=== PATIENT | male | born 1950 | race Caucasian/White ===

== ENCOUNTER → 2016-12-31 | Day surgery (SDC) | payer OTHER, MEDICARE ==
[~2016-12-31] VITALS: Ht 170.2 cm; Wt 75.0 kg
[~2016-12-31] MED LIST: ACETAMINOPHEN 325 MG TAB PO PRN; AGG PO; ASCO10003 PO; ATOR-26 PO; ATROPINE SULFATE 0.1 MG/ML 5ML SYR IV PRN; Beta Carotene PO; CALCTAB5 PO; CLOB1SHA EXT; CLOP1TAB15 PO; CYAN100T6 PO; EZET10TA47 PO; FENTANYL CITRATE INJ 50 MCG/1 ML 2 ML VIAL ONE; FINA5TAB PO; HEPARIN SOD (PORCINE) 1000 UNIT/ML 10 ML VIAL ONE; LCTX PO; LISI-729 PO; LISI-789 PO; MIDAZOLAM HCL 1 MG/ML 2ML VIAL ONE; MISCCAP63 PO; MULT-839 PO; NITROGLYCERIN/D5W 100MCG/ML 20ML SYR ONE; NiCARDipine HCL INJ 2.5 MG/ML 10 ML AMP ONE; Potassium PO; ROSU20TA PO; SODIUM CHLORIDE 0.9% 1000ML 1,000 ML IV SCH; SODIUM CHLORIDE 0.9% 1000ML 250 ML IV PRN; TAMS0.4C38 PO; VITA1CAP4 PO; [UNRECOGNIZED DRUG - CODE] PO; [UNRECOGNIZED DRUG - OTHER] PO
[2016-12-31 07:21] VITALS: BP 162/74; PULSE 58; TEMP 36.7; O2SAT 99; Ht 170.2 cm; Wt 75.0 kg
--- NOTE | 2016-12-31 09:45 | History & Physical Bridge Note ---
H&P Re-Evaluation Bridge Note: I have examined the patient, reviewed the History & Physical and in the interval since the performance of the History & Physical I have noted the following changes of clinical significance: No changes noted
--- NOTE | 2016-12-31 10:01 | [facility] Post Operative Brief Note ---
Preliminary Procedure Note Procedure Date Dec 31, 2016. Pre-Procedure Diagnosis Angina, Positive Stress Test AUC Score 8 Post-Procedure Diagnosis Severe CAD Procedure(s) Performed Coronary Angiography Elastic Assembler Dr. Dinesh Bacon Teacher Resource(s) <15 cc Estimated Blood Loss Medication(s) Fentanyl (12.5 mcg IV), Heparin (5000u IV), Nicardipine (300 mcg intraarterial after sheath insertion), Versed (1 mg IV), Lidocaine 1% (local infiltration) Preliminary Findings Diffuse coronary calcification Right dominant coronary anatomy LM 80% ostial, 50% distal LAD 60% mid vessel LADD1 long 70% LCX Very large OM , serial 50% stenoses proximal RCA Dominant 50% at AV groove bifurcation MEJIAS intact insitu Recommendations CABG Specimens None Fluids (cc crystalloids) 47 Anesthesia [id number] End 929 Procedural Complication(s) None Disposition Pediatric Critical Care Nurse Holding/Recovery
--- NOTE | 2016-12-31 10:22 | Procedure Note ---
Pre-Mod Sedation Assessment General Date of Moderate Sedation: Dec 31, 2016. Vital Signs: Vital Signs Past 12 Hours Date Time Temp Pulse Resp B/P (MAP) Pulse Ox O2 Delivery O2 Flow Rate FiO2 12/31/16 09:38 51 18 146/78 (100) 98 Room Air 12/31/16 07:21 36.7 58 18 162/74 99 Room Air Review Cardiovascular: regular rate, rhythm, no gallop, no murmur Abdomen: normal bowel sounds Lungs: chest non-tender, lungs clear Airway Class: II Pre-Sedation Airway Assessment Oral Cavity: Dentures Short Thick Neck: No Hx of Sleep Apnea: No Smoking Status: Never Smoker Procedure Planning Contraindications-for Mod Sed: None Yes Notes The planned sedation has been discussed with the patient and consent obtained. I have identified the patient, determined the appropriateness of sedation and have assessed the patient immediately prior to the procedure. All medicine(s) and interventions are by my order.
[2016-12-31 12:00] VITALS: BP 134/79; PULSE 52; O2SAT 96
--- NOTE | 2016-12-31 12:11 | CARDIAC CATH REPORT ---
REFERRING: Dr. Sandhu. PRIMARY CARE DOCTOR: Dr. Barber. INDICATIONS: Abnormal stress test, crescendo angina. PROCEDURE: Coronary angiography. BRIEF CARDIAC HISTORY: The patient is a 66-year-old male with recent symptoms of exertional chest pressure pain with abnormal EKG and on 12/30/2016, abnormal stress echocardiogram, referred now for diagnostic cardiac catheterization. He has had no prior history of myocardial infarction. Symptoms are consistent with crescendo class 3 or greater angina with abnormal stress testing by EKG and echocardiographic criteria. He has never had a history of congestive heart failure, does carry a history of underlying prior carotid vascular disease, marked hyperlipidemia. ACCESS: Right radial artery. CATHETERS: A 6-[place]or[place] long sheath, a 5-[place] brachial 3.5. CONTRAST: Nonionic x60 mL Visipaque. IV FLUIDS: 47 mL normal saline. MEDICATIONS: The patient received local infiltration with 1% lidocaine at site of access. After arterial sheath was inserted, 300 mcg of intra-arterial sheath administration of nicardipine was given and after central access was gained, 5000 units IV heparin was given. SEDATION: Start time was 09:09 and end time was 09:30. MEDICATIONS: Versed 1 mg IV, fentanyl 12.5 mcg IV. CORONARY ANGIOGRAPHY: LEFT: All coronaries are noted to be heavily calcified in their proximal portions, coronary anatomy is right dominant. LEFT MAIN: The left main is long and bifurcates to give rise to left anterior descending and left circumflex. Within the left main, there is a 75-80% narrowing at its ostium. There is an additional 50% narrowing at its distal portion extending into the origins of the circumflex and left anterior descending with heavy calcification in this area. LEFT ANTERIOR DESCENDING: Left anterior descending is type 3 in distribution and gives rise to a moderately large first diagonal branch and a small second diagonal branch before coursing to terminate the apex. Within the left anterior descending, there are diffuse luminal irregularities throughout its vessel and has 50% narrowing in its proximal portion and 60% narrowing in its mid portion. The first left anterior descending diagonal has a long area of 70% narrowing shortly after its origin. LEFT CIRCUMFLEX: Left circumflex is nondominant but large consisting of a very large multi-branching obtuse marginal. The circumflex has serial stenosis of 50% in its proximal third, the distal was of moderately large caliber. RIGHT CORONARY ARTERY: The right coronary artery is dominant in distribution. It courses as a moderately large caliber vessel to the AV groove for gives rise to a long posterior descending artery with the posterior descending artery reaching beyond the apex and along the AV groove, giving rise to 3 posterior ventricular branches. Within the right coronary artery, there is 50% narrowing at its proximal segment and 50% narrowing at its AV groove bifurcation extending into the origin of the posterior descending artery. LV angiography not performed. Selective angiography of the left subclavian demonstrated a patent left internal mammary artery in situ without obstruction of the left internal mammary artery. HEMODYNAMICS: Initial aortic root pressure was 159/70 with a mean of 105. Following completion of imaging, the closing pressure was 148/65 with a mean of 98. RADIATION EXPOSURE: Three minutes fluoroscopy time, 1570 milligrays DAP score 9661. FINAL IMPRESSIONS: 1. Left main coronary artery disease with heavy calcification of the coronary vasculature and 75-80% narrowing of the ostial left main. 2. Diffuse coronary luminal irregularities and moderate atheromatous disease as described with a 70% narrowing at the left anterior descending artery diagonal, 50% narrowing of the proximal circumflex and left anterior descending and 50% narrowing of the distal right coronary artery. 3. Patent left internal mammary artery in situ. RECOMMENDATIONS: The patient will be referred for surgical revascularization.
== END | disposition home or self-care (01) ==
LOC: C.CATH 06:30
PROVIDERS: ATTEND Internal Medicine Cardiovascular Disease
DX: R94.39 Abnormal result of other cardiovascular function study (principal); I25.110 Atherosclerotic heart disease of native coronary artery with unstable angina pectoris; I10 Essential (primary) hypertension; E78.5 Hyperlipidemia, unspecified; I45.10 Unspecified right bundle-branch block; Z98.890 Other specified postprocedural states; Z82.49 Family history of ischemic heart disease and other diseases of the circulatory system; N40.1 Benign prostatic hyperplasia with lower urinary tract symptoms; Z79.02 Long term (current) use of antithrombotics/antiplatelets; Z79.899 Other long term (current) drug therapy

== ENCOUNTER → 2017-05-18 | Outpatient (CLI) | payer OTHER, MEDICARE ==
[~2017-05-18] MED LIST changes: -ACETAMINOPHEN 325 MG TAB PO PRN; -AGG PO; -ATOR-26 PO; -ATROPINE SULFATE 0.1 MG/ML 5ML SYR IV PRN; -FENTANYL CITRATE INJ 50 MCG/1 ML 2 ML VIAL ONE; -HEPARIN SOD (PORCINE) 1000 UNIT/ML 10 ML VIAL ONE; -LISI-729 PO; -LISI-789 PO; +METO25TA56 PO; -MIDAZOLAM HCL 1 MG/ML 2ML VIAL ONE; -NITROGLYCERIN/D5W 100MCG/ML 20ML SYR ONE; -NiCARDipine HCL INJ 2.5 MG/ML 10 ML AMP ONE; -SODIUM CHLORIDE 0.9% 1000ML 1,000 ML IV SCH; -SODIUM CHLORIDE 0.9% 1000ML 250 ML IV PRN
--- NOTE | 2017-05-18 12:47 | DIAGNOSTIC IMAGING REPORT ---
PET/CT SKULL-THIGH CLINICAL HISTORY: 66 years-old Male presenting with multiple myeloma, initial treatment staging. TECHNIQUE: PET/CT was performed from the vertex through the feet following the intravenous administration of 14.142 mCi of F18-FDG. Blood glucose level 100 mg/dL. The injection was performed at 9:54 AM and imaging began at 10:54 AM of the body and 11:30 AM of the legs. Unenhanced CT was performed for attenuation correction purposes and anatomic localization. COMPARISON: None. CT DOSE (mGy.cm): The estimated cumulative dose is 2499.72. FINDINGS: Head and neck: No photopenic regions of the brain parenchyma. No FDG-avid mass in the visualized portion of the head or neck. No FDG avid or enlarged lymph nodes in the neck. Chest: Bilateral gynecomastia. Normal thyroid and thoracic inlet. No FDG avid axillary, supraclavicular, or mediastinal lymphadenopathy. Evaluation of the fidel on anatomic imaging limited without intravenous contrast. Atherosclerosis of the aorta. Normal heart size. Coronary artery calcification. Post surgical changes of median sternotomy with epicardial pacing wires remaining in place. No pericardial or pleural effusion. Minimal dependent changes likely atelectasis. No FDG avid focal nodule or infiltrate. Airways patent. Abdomen and pelvis: Normal physiologic distribution of radiotracer in the gastrointestinal and genitourinary tracts. No FDG avid lymphadenopathy or mass lesion. Multiple nonobstructing left renal calculi, the largest measuring 5 mm at the lower pole. No hydronephrosis. Circumferential bladder wall thickening likely suggests chronic bladder outlet obstruction in the setting of prostatomegaly. Fat-containing left inguinal hernia. Musculoskeletal: No FDG-avid or destructive osseous lesion. Postsurgical changes of total right hip arthroplasty and L2-S1 bilateral transpedicular screw and sonya fixation with associated laminectomy defects. Degenerative changes of the spine. Sternotomy. Lower extremities: No FDG-avid lesion. Focal FDG avidity in the right antecubital fossa consistent with infiltration of the intravenous catheter. This did not result in poor FDG distribution. IMPRESSION: 1. Initial PET/CT does not demonstrate FDG avid osseous lesions or other evidence of malignancy. Electronically signed by: Son Nolan M.D. 05/18/2017 12:46 PM Dictated Date/Time: 05/18/2017 12:34 PM
== END | disposition home or self-care (01) ==
LOC: C.PET 09:30
PROVIDERS: ATTEND Internal Medicine Hematology & Oncology
DX: C90.00 Multiple myeloma not having achieved remission (principal)

== ENCOUNTER 2017-07-04 09:02 | Inpatient (IN) | payer OTHER, MEDICARE ==
[~2017-07-04] VITALS: Ht 170.2 cm; Wt 74.1 kg
[2017-07-04] VITALS (8 sets, daily range): BP systolic 132–163; BP diastolic 76–84; PULSE 58–79; TEMP 36.6–36.7; O2SAT 95–97; Ht 170.2 cm; Wt 74.1 kg
[2017-07-04] MEDS ORDERED: SODIUM CHLORIDE 0.9% 1000ML 1,000 ML IV STA (09:04)
[2017-07-04 09:19] LABS: BASO % 0.4 %; BASO ABS # 0.03 K/uL (0-0.2); EOS % 2.3 %; EOS ABS # 0.16 K/uL (0-0.5); HEMATOCRIT 29.5 % (42-52); HEMOGLOBIN 9.8 g/dL (14.0-18.0); IG# 0.01 K/uL (0.00-0.02); LYMPH % 24.1 %; LYMPH ABS # 1.66 K/uL (1.2-3.4); MEAN CELL VOLUME 90.8 fL (80-100); MEAN CORPUSCULAR HEMOGLOBIN 30.2 pg (25-34); MEAN CORPUSCULAR HGB CONC 33.2 g/dl (32-36); MEAN PLATELET VOLUME 11.6 fL (7.4-10.4); MONO % 13.8 %; MONO ABS # 0.95 K/uL (0.11-0.59); NEUT % 59.3 %; NEUT ABS # 4.08 K/uL (1.4-6.5); PLATELET COUNT 128 K/uL (130-400); RED CELL DISTRIBUTION WIDTH CV 16.5 % (11.5-14.5); RED CELL DISTRIBUTION WIDTH SD 54.5 fL (36.4-46.3); WHITE BLOOD COUNT 6.89 K/uL (4.8-10.8)
[2017-07-04 09:28] LABS: INR 1.1 (0.9-1.1)
--- NOTE | 2017-07-04 09:34 | DIAGNOSTIC IMAGING REPORT ---
CHEST ONE VIEW PORTABLE HISTORY: 66 years-old Male EVALUATE ALTERED MENTAL STATUS/WEAKNESS acute weakness with altered mental status COMPARISON: PET CT 05/18/2017, chest radiograph 12/04/2013 TECHNIQUE: Portable AP view of the chest FINDINGS: Cardiac silhouette is mildly enlarged. Prior median sternotomy and CABG. Atherosclerosis of the aorta. No pneumothorax, pleural effusion or overt pulmonary edema. Moderate left hemidiaphragmatic elevation with subsegmental left basilar opacities. Bones of the chest appear grossly intact. There are degenerative changes of the shoulders and spine. IMPRESSION: 1. Left hemidiaphragmatic elevation with subsegmental left basilar opacities suggesting atelectasis or scarring. 2. Cardiomegaly with prior median sternotomy and CABG. The above report was generated using voice recognition software. It may contain grammatical, syntax or spelling errors. Electronically signed by: Jared Zavaleta M.D. 07/04/2017 9:33 AM Dictated Date/Time: 07/04/2017 9:31 AM
[2017-07-04 09:37] LABS: ALBUMIN 3.5 gm/dl (3.4-5.0); ALT/SGPT 43 U/L (12-78); AST/SGOT 31 U/L (15-37); BLOOD UREA NITROGEN 20 mg/dl (7-18); CALCIUM 8.7 mg/dl (8.5-10.1); CARBON DIOXIDE 25 mmol/L (21-32); CREATININE 1.24 mg/dl (0.60-1.40); GLUCOSE 129 mg/dl (70-99); LIPASE 212 U/L (73-393); POTASSIUM 3.8 mmol/L (3.5-5.1); SODIUM 138 mmol/L (136-145)
[2017-07-04 09:42] LABS: PTT PATIENT 19.8 SECONDS (21.0-31.0)
[2017-07-04 09:53] LABS: ALKALINE PHOSPHATASE 57 U/L (45-117); CKMB 1.8 ng/ml (0.5-3.6)
[2017-07-04] MEDS ORDERED: BCTCR/30 EXT (10:56)
[2017-07-04] MEDS ORDERED: LENA10CA3 PO (10:56)
[2017-07-04] MEDS ORDERED: ROSU40TA PO (10:56)
[2017-07-04] MEDS ORDERED: CALCTAB5 PO (10:56)
[2017-07-04] MEDS ORDERED: ASPI81TA28 PO (10:56)
[2017-07-04] MEDS ORDERED: VLCI INJ (10:56)
[2017-07-04] MEDS ORDERED: ACYC-57 PO (10:56)
[2017-07-04] MEDS ORDERED: ZINC1TAB PO (10:56)
[2017-07-04] MEDS ORDERED: DXM/4 PO (10:56)
[2017-07-04] MEDS ORDERED: ONDA4TAB46 PO (10:56)
[2017-07-04] MEDS ORDERED: POTA10CA28 PO (10:56)
--- NOTE | 2017-07-04 11:52 | EMERGENCY ROOM VISIT NOTE ---
History Report prepared by Tee: Dina Bell Under the Supervision of: Dr. Rory Banks D.O. First contact with patient: 09:03 Stated Complaint: SYNCOPE History of Present Illness The patient is a 66 year old male who presents to the Emergency Room with complaints of an episode of illness occurring prior to arrival. Per nursing staff, the patient's coworker dropped him off. 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 They state that the coworker said that he started sweating profusely and they lowered him to the ground. They report that at this time he could not answer any questions that his coworkers asked. Nursing staff notes that the patient was unable to answer questions, including what his name was, upon arrival to the ED. The patient complains of feeling lightheaded. The patient notes that this has happened before when his blood sugar was low. The patient denies chest pain, abdominal pain, nausea, shortness of breath, hematochezia, melena, and a history of Diabetes. Nursing staff notes that the patient's coworker reported that the patient did not lose consciousness and did not hit his head. Nursing staff notes that the patient's is on her way. Source of History: patient Onset: prior to arrival Position: other (global) Quality: other (illness) Timing: other (episode) Associated Symptoms: + diaphoresis, No LOC, No chest pain, No SOB, No nausea , No abdominal pain, No melena, No hematochezia Note: The patient complains of lightheadedness. Nursing staff reports that the patient was shaking and would not respond to questions. Review of Systems See HPI for pertinent positives & negatives. A total of 10 systems reviewed and were otherwise negative. Past Medical & Surgical Medical Problems: (1) Carotid artery stenosis (2) Ischemic stroke (3) Nonruptured cerebral aneurysm (4) Total replacement of hip Family History Patient reports no known family medical history. Social History Smoking Status: Never Smoker Alcohol Use: none Marital Status: Housing Status: lives with family Occupation Status: employed Current/Historical Medications Scheduled Acyclovir (Zovirax), 200 MG PO BID Ascorbic Acid (Vitamin C), 1,000 MG PO DAILY Aspirin (Aspirin Ec), 81 MG PO DAILY Bortezomib (Velcade), 1 DOSE INJ UD Calcium Carbonate (Caltrate 600), 2 TAB PO DAILY Cyanocobalamin (Vitamin B12 100 Mcg), 100 MCG PO DAILY Dexamethasone (Decadron), 10 TABS PO UD Ezetimibe (Zetia), 10 MG PO DAILY Finasteride (Proscar), 1 TAB PO DAILY Lactobacillus Acidophilus (Floranex), 1 TAB PO TIDM Lenalidomide (Revlimid), 15 MG PO UD Metoprolol Tartrate (Lopressor) (Lopressor), 12.5 MG PO BID Multiple Vitamins W/ Minerals (Vision Formula/Lutein), 1 TAB PO DAILY Mupirocin 2% (Bactroban 2%), 1 APPLN EXT UD Potassium Chloride (Micro-K Ext Rel), 10 MEQ PO DAILY Rosuvastatin Calcium (Crestor), 40 MG PO DAILY Tamsulosin Hcl (Flomax), 1 CAP PO DAILY Vitamin E (E 1000), 1,000 INTER.UNIT PO DAILY Zinc Gluconate (Zinc), 1 TAB PO DAILY Scheduled PRN Clobetasol Propionate (Clobetasol Propionate), 1 APPLN EXT DAILY PRN for Psoriasis Ondansetron Hcl (Zofran), 4 MG PO Q12 PRN for Nausea Allergies Coded Allergies: No Known Allergies (Unverified , 07/04/17) Physical Exam Vital Signs Date Time Temp Pulse Resp B/P (MAP) Pulse Ox O2 Delivery O2 Flow Rate FiO2 07/04/17 11:59 72 22 170/84 97 Room Air 07/04/17 11:31 60 20 129/80 97 Room Air 07/04/17 10:31 63 16 125/74 97 Room Air 07/04/17 09:56 65 16 135/81 96 Room Air 07/04/17 09:22 36.9 55 15 91/55 96 Room Air 07/04/17 09:18 60 16 98/60 96 Room Air 58 92/62 59 88/52 07/04/17 09:17 79 Physical Exam CONSTITUTIONAL/VITAL SIGNS: Reviewed / noted above. GENERAL: Non-toxic in appearance. INTEGUMENTARY: Warm. On initial exam, the patient is diaphoretic and slightly pale. HEAD: Normocephalic. EYES: without scleral icterus or trauma. ENT/OROPHARYNX: clear and moist. LYMPHADENOPATHY/NECK: Is supple without lymphadenopathy or meningismus. RESPIRATORY: Lungs clear and equal. CARDIOVASCULAR: Regular rate and rhythm. GI/ABDOMEN: Soft and nontender. No organomegaly or pulsatile mass. No rebound or guarding. Normal bowel sounds. EXTREMITIES: Warm and well perfused. BACK: No CVA tenderness. NEUROLOGICAL: Intact without focal deficits. PSYCHIATRIC: normal affect. MUSCULOSKELETAL: Normally developed with good muscle tone. Medical Decision & Procedures ER Provider Diagnostic Interpretation: Radiology results as stated below per my review and radiologist interpretation: CHEST ONE VIEW PORTABLE HISTORY: 66 years-old Male EVALUATE ALTERED MENTAL STATUS/WEAKNESS acute weakness with altered mental status COMPARISON: PET CT 05/18/2017, chest radiograph 12/04/2013 TECHNIQUE: Portable AP view of the chest FINDINGS: Cardiac silhouette is mildly enlarged. Prior median sternotomy and CABG. Atherosclerosis of the aorta. No pneumothorax, pleural effusion or overt pulmonary edema. Moderate left hemidiaphragmatic elevation with subsegmental left basilar opacities. Bones of the chest appear grossly intact. There are degenerative changes of the shoulders and spine. IMPRESSION: 1. Left hemidiaphragmatic elevation with subsegmental left basilar opacities suggesting atelectasis or scarring. 2. Cardiomegaly with prior median sternotomy and CABG. The above report was generated using voice recognition software. It may contain grammatical, syntax or spelling errors. Electronically signed by: Jared Zavaleta M.D. 07/04/2017 9:33 AM Dictated Date/Time: 07/04/2017 9:31 AM Laboratory Results 07/04/17 09:08 Red Blood Count 3.25, Mean Corpuscular Volume 90.8, Mean Corpuscular Hemoglobin 30.2, Mean Corpuscular Hemoglobin Concent 33.2, Mean Platelet Volume 11.6, Neutrophils (%) (Auto) 59.3, Lymphocytes (%) (Auto) 24.1, Monocytes (%) (Auto) 13.8, Eosinophils (%) (Auto) 2.3, Basophils (%) (Auto) 0.4, Neutrophils # (Auto ) 4.08, Lymphocytes # (Auto) 1.66, Monocytes # (Auto) 0.95, Eosinophils # (Auto ) 0.16, Basophils # (Auto) 0.03 07/04/17 09:08 Test 07/04/17 09:05 07/04/17 09:08 07/04/17 11:30 Bedside Glucose 132 mg/dl (70-99) White Blood Count 6.89 K/uL (4.8-10.8) Red Blood Count 3.25 M/uL (4.7-6.1) Hemoglobin 9.8 g/dL (14.0-18.0) Hematocrit 29.5 % (42-52) Mean Corpuscular Volume 90.8 fL (80-100) Mean Corpuscular Hemoglobin 30.2 pg (25-34) Mean Corpuscular Hemoglobin Concent 33.2 g/dl (32-36) Platelet Count 128 K/uL (130-400) Mean Platelet Volume 11.6 fL (7.4-10.4) Neutrophils (%) (Auto) 59.3 % Lymphocytes (%) (Auto) 24.1 % Monocytes (%) (Auto) 13.8 % Eosinophils (%) (Auto) 2.3 % Basophils (%) (Auto) 0.4 % Neutrophils # (Auto) 4.08 K/uL (1.4-6.5) Lymphocytes # (Auto) 1.66 K/uL (1.2-3.4) Monocytes # (Auto) 0.95 K/uL (0.11-0.59) Eosinophils # (Auto) 0.16 K/uL (0-0.5) Basophils # (Auto) 0.03 K/uL (0-0.2) RDW Standard Deviation 54.5 fL (36.4-46.3) RDW Coefficient of Variation 16.5 % (11.5-14.5) Immature Granulocyte % (Auto) 0.1 % Immature Granulocyte # (Auto) 0.01 K/uL (0.00-0.02) Prothrombin Time 11.1 SECONDS (9.0-12.0) Prothromb Time International Ratio 1.1 (0.9-1.1) Activated Partial Thromboplast Time 19.8 SECONDS (21.0-31.0) Partial Thromboplastin Ratio 0.8 Anion Gap 8.0 mmol/L (3-11) Est Creatinine Clear Calc Drug Dose 54.8 ml/min Estimated GFR () 69.8 Estimated GFR (Non- 60.2 BUN/Creatinine Ratio 15.9 (10-20) Calcium Level 8.7 mg/dl (8.5-10.1) Magnesium Level 2.0 mg/dl (1.8-2.4) Total Bilirubin 0.3 mg/dl (0.2-1) Direct Bilirubin < 0.1 mg/dl (0-0.2) Aspartate Amino Transf (AST/SGOT) 31 U/L (15-37) Alanine Aminotransferase (ALT/SGPT) 43 U/L (12-78) Alkaline Phosphatase 57 U/L (45-117) Total Creatine Kinase 77 U/L (39-308) Creatine Kinase MB 1.8 ng/ml (0.5-3.6) Creatine Kinase MB Ratio 2.3 (0-3.0) Troponin I 0.073 ng/ml (0-0.045) Total Protein 8.0 gm/dl (6.4-8.2) Albumin 3.5 gm/dl (3.4-5.0) Lipase 212 U/L (73-393) Thyroid Stimulating Hormone (TSH) 2.000 uIu/ml (0.300-4.500) Urine Color YELLOW Urine Appearance CLEAR (CLEAR) Urine pH 6.0 (4.5-7.5) Urine Specific [place] 1.015 (1.000-1.030) Urine Protein NEG (NEG) Urine Glucose (UA) NEG (NEG) Urine Ketones NEG (NEG) Urine Occult Blood NEG (NEG) Urine Nitrite NEG (NEG) Urine Bilirubin NEG (NEG) Urine Urobilinogen NEG (NEG) Urine Leukocyte Esterase NEG (NEG) Urine WBC (Auto) 0 /hpf (0-5) Urine RBC (Auto) 0-4 /hpf (0-4) Urine Hyaline Casts (Auto) 1-5 /lpf (0-5) Urine Epithelial Cells (Auto) 5-10 /lpf (0-5) Urine Bacteria (Auto) NEG (NEG) Laboratory results as stated above per my review. Medications Administered Medications (Trade) Dose Ordered Sig/Agnes Route Start Time Stop Time Status Last Admin Dose Admin Sodium Chloride 1,000 ml @ 999 mls/hr Q1H1M STAT IV 07/04/17 09:04 07/04/17 10:04 DC 07/04/17 09:04 999 MLS/HR ECG Per My Interpretation Indication: diaphoresis Rate (beats per minute): 55 Rhythm: sinus bradycardia Findings: no ectopy, other (no ST elevations) ED Course 0858: Previous medical records were reviewed. The patient was evaluated in room A12B. A complete history and physical examination was performed. 0904: Ordered NSS 1000 ml @ 999 mls/hr IV. 1137: I reevaluated the patient and updated him on his test results. 1146: Discussed the patient's case with KAMRAN Segal Hospitalist. The patient will be evaluated for further treatment and disposition. Medical Decision Differential includes acute coronary syndrome, myocardial infarction, CVA, TIA, anemia, infection, pneumonia, UTI, pyelonephritis, poor nutrition, dehydration, electrolyte disturbance,hypoglycemia. This is a 66-year-old male who presents to the ED with a chief complaint of syncope. 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 He was shaking. He was lowered to the ground. He did not fall or suffer injury. He was diaphoretic. He was brought into the ED by private vehicle. The patient initially on his arrival was not very responsive although awake. He was diaphoretic. He eventually began to converse normally and denied having chest pains, shortness of breath, recent illness, blood in the stools, poor appetite or other symptoms. He just reported lightheadedness. His initial blood pressure was low in the 90 range. Orthostatic vital signs initially with lying and sitting did not reveal change in his blood pressure. He does report a history of hypertension and is on metoprolol for this. The patient also recently started chemotherapy for multiple myeloma. His chemotherapy session was on Tuesday. The patient's EKG showed a sinus bradycardia at a rate of 55. BSG when he first arrived was 130. His hemoglobin today is 9.8. Troponin was elevated at 0.073. Metabolic panel was otherwise unremarkable and a TSH was normal. Chest x-ray reveals some cardiomegaly. The patient did receive some IV fluids. He is given 1 L normal saline. His blood pressure did improve with this. He was feeling better. The patient denies lack of appetite or eating or drinking adequately. Because the elevated troponin and the patient's syncope or near syncopal episode , the patient will be seen by the hospitalist for further inpatient evaluation and care. Medication Reconcilliation Current Medication List: was personally reviewed by me Blood Pressure Screening Patient's blood pressure: Normal blood pressure Will be further monitored by the hospitalist. Consults Time Called: 1140 Consulting Physician: KAMRAN Segal Returned Call: [phone] Discussed the patient's case with KAMRAN Segal. The patient will be evaluated for further treatment and disposition. Impression Primary Impression: Syncope Additional Impressions: Elevated troponin Hypotension Scribe Attestation The scribe's documentation has been prepared under my direction and personally reviewed by me in its entirety. I confirm that the note above accurately reflects all work, treatment, procedures, and medical decision making performed by me. Departure Information Dispostion Being Evaluated By Hospitalist Tutu Nath M.D. (PCP) Problem Qualifiers
[2017-07-04] MEDS ORDERED: ONDANSETRON INJ 2 MG/ML 2 ML VIAL IV PRN (12:30)
[2017-07-04] MEDS ORDERED: ACETAMINOPHEN 325 MG TAB PO PRN (12:30)
[2017-07-04] MEDS ORDERED: OPTIRAY 320 IV PRN (12:30)
[2017-07-04] MEDS ORDERED: [UNRECOGNIZED DRUG - CODE] PO (13:26)
[2017-07-04] MEDS ORDERED: VITACAP37 PO (13:26)
--- NOTE | 2017-07-04 14:09 | DIAGNOSTIC IMAGING REPORT ---
NECK ANGIO WITH CONTRAST CLINICAL HISTORY: 66 years-old Male with X. Acute syncope. History of 75% stenosis at the origin of the right internal carotid artery along with 3.3 cm aneurysm at the origin of the right ophthalmic artery. COMPARISON STUDY: CTA of the head of same day, CTA neck 11/07/2012. TECHNIQUE: Following the IV administration of 94 of Optiray 320, CT angiogram of the neck was performed from the aortic arch to the skull base. Images are reviewed in the axial, sagittal, and coronal planes. 3-D MIPS images are created and assessed. Additional 3-D rendering images were generated from a separate workstation. IV contrast was administered without complication. All measurements were calculated based on NASCET criteria. A dose lowering technique was utilized adhering to the principles of ALARA. FINDINGS: The opacified pulmonary arterial tree is unremarkable. Moderate atherosclerosis of the aortic arch. Prior median sternotomy with suggested prior CABG. Bilateral subclavian and common carotid arteries are widely patent. There is moderate mixed plaquing at the bilateral carotid bulbs and origins of the bilateral internal carotid arteries. There is 50% luminal narrowing involving the origin of the right internal carotid artery secondary to atheromatous plaque, image 228 series 5 and image 15 series 501. No significant narrowing about the left internal carotid artery. Dominant left vertebral artery. Prominent calcified plaque at the origin of the left vertebral artery causes approximately 70% luminal narrowing, image 130 series 5. The remainder of the left vertebral artery appears widely patent. The right vertebral artery is diminutive in size. Prominent calcified plaque at the origin of the right vertebral artery causes at least 50% luminal narrowing, image 113 series 5 however is difficult to measure secondary to diminutive size of the vessel. No aneurysm, dissection or proximal branch occlusion identified. Imaged lung apices appear clear. Thyroid is homogeneous. There is no pathologic adenopathy. Mild mucosal thickening about the right maxillary sinus and nasal turbinates. Multilevel degenerative changes about the cervical spine. IMPRESSION: 1. Prominent atheromatous plaquing of the right carotid bulb results in 50% luminal narrowing at the origin of the right internal carotid artery. 2. No hemodynamically significant stenosis about the left carotid vasculature. 3. Calcified plaque at the origin of the bilateral vertebral arteries resulting in 70% stenosis on the left and at least 50% luminal narrowing on the right. 4. No aneurysm, dissection or proximal branch occlusion identified. The above report was generated using voice recognition software. It may contain grammatical, syntax or spelling errors. Electronically signed by: Jared Zavaleta M.D. 07/04/2017 2:08 PM Dictated Date/Time: 07/04/2017 1:49 PM
[2017-07-04] MEDS: SODIUM CHLORIDE 0.9% 1000ML 1,000 ML IV SCH (14:15)
--- NOTE | 2017-07-04 14:16 | History and Physical ---
History & Physical Date & Time of Service: July 04, 2017 ~ 12:00 Chief Complaint: Syncope Primary Care Physician: Tutu Barber M.D. History of Present Illness 66-year-old male who presents the ED after syncopal event today. 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 He reports that he was standing along the road, waiting for materials, when he started to feel lightheaded. He reports that the next thing he remembers is being put in a truck by his coworkers. Patient was recently diagnosed with multiple myeloma and underwent his second Velcade treatment on 07/01. He is also on oral Revlimid. He reports he has been feeling well. He feels as though he is tolerating his chemotherapy well. He reports a good appetite. Denies nausea, vomiting, abdominal pain, diarrhea. No recent illnesses, fevers, or chills. He has history of CAD, S/P CABG 2017. He denies any preceding shortness of breath or chest pain with the syncopal event today. No loss of bowel or bladder function. No reported postictal state. He denies numbness, tingling, unilateral weakness, slurred speech, facial droop. Denies any exertional chest pain or shortness of breath. No urinary symptoms. In the ED, patient was mildly hypotensive with BP of 98/ 60 which dropped to 88/52 with standing. This improved with IVF. Patient reports marked improvement in his symptoms. Labs show a mildly elevated troponin at 0.073. EKG does not show any acute ST changes. Past Medical/Surgical History Medical Problems: (1) Benign prostatic hyperplasia Status: Chronic (2) CAD (coronary artery disease) Permanent Comment: S/P CABG 12/2016 Status: Chronic (3) Carotid artery stenosis Permanent Comment: 2012 - concern for right ICA stenosis 75%, follow-up cerebral angiogram felt that the carotid stenosis was more in the range of 35% 12/2016-carotid ultrasound demonstrated less than 50% stenosis bilaterally Status: Chronic (4) Dyslipidemia Status: Chronic (5) Hypertension Status: Chronic (6) Ischemic stroke Permanent Comment: embolic right parietal Oct 2012 Status: Chronic (7) Multiple myeloma Status: Chronic (8) Nonruptured cerebral aneurysm Permanent Comment: 3.3 mm aneurysm extending off the ophthalmic segment of the right ICA Oct 2012 Follow-up cerebral angiogram showed 2.4 x 1.5 mm right ICA aneurysm Status: Chronic (9) RBBB Status: Chronic Surgical Problems: (1) H/O rotator cuff surgery Status: Chronic (2) History of total right hip replacement Status: Chronic (3) S/P CABG x 4 Status: Chronic Family History FH: CAD (coronary artery disease) FATHER (Fatal PR in his 40s) Social History Smoking Status: Never Smoker Alcohol Use: socially Marital Status: Housing status: lives with family Occupational Status: employed Immunizations History of Influenza Vaccine: Yes Influenza Vaccine Date: Jan 21, 2017 History of Tetanus Vaccine?: Yes Tetanus Immunization Date: May 24, 2011 Allergies Coded Allergies: No Known Allergies (Unverified , 07/04/17) Home Medications Scheduled Acyclovir (Zovirax), 400 MG PO BID Ascorbic Acid (Vitamin C), 1,000 MG PO DAILY Aspirin (Aspirin Ec), 81 MG PO DAILY Bortezomib (Velcade), 1 DOSE INJ UD Mvpyzrszm-Pkhwdfbrmia-Qqyadmh (Osteo Bi-Flex/5-Loxin Adv), 1 TAB PO DAILY Calcium Carbonate (Caltrate 600), 2 TAB PO DAILY Cyanocobalamin (Vitamin B12 100 Mcg), 100 MCG PO DAILY Dexamethasone (Decadron), 10 TABS PO UD Ezetimibe (Zetia), 10 MG PO DAILY Finasteride (Proscar), 1 TAB PO DAILY Lactobacillus Acidophilus (Floranex), 1 TAB PO TIDM Lenalidomide (Revlimid), 15 MG PO UD Metoprolol Tartrate (Lopressor) (Lopressor), 12.5 MG PO BID Multiple Vitamins W/ Minerals (Vision Formula/Lutein), 1 TAB PO DAILY Mupirocin 2% (Bactroban 2%), 1 APPLN EXT UD Potassium Chloride (Micro-K Ext Rel), 10 MEQ PO DAILY Rosuvastatin Calcium (Crestor), 40 MG PO DAILY Tamsulosin Hcl (Flomax), 1 CAP PO DAILY Vitamin E (E-400), 1 CAP PO DAILY Zinc Gluconate (Zinc), 1 TAB PO DAILY Scheduled PRN Clobetasol Propionate (Clobetasol Propionate), 1 APPLN EXT DAILY PRN for Psoriasis Ondansetron Hcl (Zofran), 4 MG PO Q12 PRN for Nausea Review of Systems ROS per HPI, all other systems reviewed and negative Physical Exam Vital Signs Date Time Temp Pulse Resp B/P (MAP) Pulse Ox O2 Delivery O2 Flow Rate FiO2 07/04/17 13:14 68 18 108/64 94 07/04/17 12:48 96 Room Air 07/04/17 12:36 72 07/04/17 12:30 59 20 129/77 96 Room Air 07/04/17 11:59 72 22 170/84 97 Room Air 07/04/17 11:31 60 20 129/80 97 Room Air 07/04/17 10:31 63 16 125/74 97 Room Air 07/04/17 09:56 65 16 135/81 96 Room Air 07/04/17 09:22 36.9 55 15 91/55 96 Room Air 07/04/17 09:18 60 16 98/60 96 Room Air 58 92/62 59 88/52 07/04/17 09:17 79 General Appearance: WD/WN, no apparent distress Head: normocephalic, atraumatic Eyes: normal inspection, PERRL, EOMI, sclerae normal ENT: hearing grossly normal, + pertinent finding (Mucous membranes moist) Neck: supple, no JVD, trachea midline Respiratory/Chest: lungs clear, normal breath sounds, no respiratory distress Cardiovascular: regular rate, rhythm, no edema, normal peripheral pulses Abdomen/GI: normal bowel sounds, non tender, soft, no organomegaly Extremities/Musculoskelatal: normal inspection, no calf tenderness, normal capillary refill Neurologic/Psych: no motor/sensory deficits, alert, normal mood/affect, oriented x 3 Skin: normal color, warm/dry Diagnostics Laboratory Results Results Past 24 Hours Test 07/04/17 09:05 07/04/17 09:08 07/04/17 11:30 Range/Units Bedside Glucose 132 70-99 mg/dl White Blood Count 6.89 4.8-10.8 K/uL Red Blood Count 3.25 4.7-6.1 M/uL Hemoglobin 9.8 14.0-18.0 g/dL Hematocrit 29.5 42-52 % Mean Corpuscular Volume 90.8 80-100 fL Mean Corpuscular Hemoglobin 30.2 25-34 pg Mean Corpuscular Hemoglobin Concent 33.2 32-36 g/dl Platelet Count 128 130-400 K/uL Mean Platelet Volume 11.6 7.4-10.4 fL Neutrophils (%) (Auto) 59.3 % Lymphocytes (%) (Auto) 24.1 % Monocytes (%) (Auto) 13.8 % Eosinophils (%) (Auto) 2.3 % Basophils (%) (Auto) 0.4 % Neutrophils # (Auto) 4.08 1.4-6.5 K/uL Lymphocytes # (Auto) 1.66 1.2-3.4 K/uL Monocytes # (Auto) 0.95 0.11-0.59 K/uL Eosinophils # (Auto) 0.16 0-0.5 K/uL Basophils # (Auto) 0.03 0-0.2 K/uL RDW Standard Deviation 54.5 36.4-46.3 fL RDW Coefficient of Variation 16.5 11.5-14.5 % Immature Granulocyte % (Auto) 0.1 % Immature Granulocyte # (Auto) 0.01 0.00-0.02 K/uL Prothrombin Time 11.1 9.0-12.0 SECONDS Prothromb Time International Ratio 1.1 0.9-1.1 Activated Partial Thromboplast Time 19.8 21.0-31.0 SECONDS Partial Thromboplastin Ratio 0.8 Sodium Level 138 136-145 mmol/L Potassium Level 3.8 3.5-5.1 mmol/L Chloride Level 106 98-107 mmol/L Carbon Dioxide Level 25 21-32 mmol/L Anion Gap 8.0 3-11 mmol/L Blood Urea Nitrogen 20 7-18 mg/dl Creatinine 1.24 0.60-1.40 mg/dl Est Creatinine Clear Calc Drug Dose 54.8 ml/min Estimated GFR () 69.8 Estimated GFR (Non- 60.2 BUN/Creatinine Ratio 15.9 10-20 Random Glucose 129 70-99 mg/dl Calcium Level 8.7 8.5-10.1 mg/dl Magnesium Level 2.0 1.8-2.4 mg/dl Total Bilirubin 0.3 0.2-1 mg/dl Direct Bilirubin < 0.1 0-0.2 mg/dl Aspartate Amino Transf (AST/SGOT) 31 15-37 U/L Alanine Aminotransferase (ALT/SGPT) 43 12-78 U/L Alkaline Phosphatase 57 45-117 U/L Total Creatine Kinase 77 39-308 U/L Creatine Kinase MB 1.8 0.5-3.6 ng/ml Creatine Kinase MB Ratio 2.3 0-3.0 Troponin I 0.073 0-0.045 ng/ml Total Protein 8.0 6.4-8.2 gm/dl Albumin 3.5 3.4-5.0 gm/dl Lipase 212 73-393 U/L Thyroid Stimulating Hormone (TSH) 2.000 0.300-4.500 uIu/ml Urine Color YELLOW Urine Appearance CLEAR CLEAR Urine pH 6.0 4.5-7.5 Urine Specific [place] 1.015 1.000-1.030 Urine Protein NEG NEG Urine Glucose (UA) NEG NEG Urine Ketones NEG NEG Urine Occult Blood NEG NEG Urine Nitrite NEG NEG Urine Bilirubin NEG NEG Urine Urobilinogen NEG NEG Urine Leukocyte Esterase NEG NEG Urine WBC (Auto) 0 0-5 /hpf Urine RBC (Auto) 0-4 0-4 /hpf Urine Hyaline Casts (Auto) 1-5 0-5 /lpf Urine Epithelial Cells (Auto) 5-10 0-5 /lpf Urine Bacteria (Auto) NEG NEG Diagnostic Radiology CXR IMPRESSION: 1. Left hemidiaphragmatic elevation with subsegmental left basilar opacities suggesting atelectasis or scarring. 2. Cardiomegaly with prior median sternotomy and CABG. Impression Assessment and Plan SYNCOPE ELEVATED TROPONIN HISTORY OF CAD -Admit to telemetry -Patient presenting after experiencing a syncopal event today while at work, no preceding chest pain or shortness of breath reported; in the ED, patient was mildly hypotensive with BP of 98/60 which dropped to 88/52 with standing - improved with IVF -Initial troponin mildly elevated at 0.073, no EKG changes -Continue to cycle cardiac enzymes, check resting echo -2012 - concern for right ICA stenosis 75%, follow-up cerebral angiogram felt that the carotid stenosis was more in the range of 35%, 12/2016-carotid ultrasound demonstrated less than 50% stenosis bilaterally -Patient with history of cerebral aneurysm - (10/2012 - 3.3 mm aneurysm extending off the ophthalmic segment of the right ICA; Follow-up cerebral angiogram showed 2.4 x 1.5 mm right ICA aneurysm) - will check head and neck CTA -Given hypotension on arrival, may be mild dehydration - continue IVF, monitor orthostatic blood pressures -Also history of right parietal CVA; Plavix discontinued 06/15/17 due to epistaxis and pancytopenia from myeloma; consider brain MRI -Also may need to consider workup for PE -Continue aspirin, beta-marvin, statin, Zetia; may need adjustments in beta- marvin depending on blood pressure -Cardio consult, case discussed with Dr. March MULTIPLE MYELOMA -Currently receiving Velcade injection (last dose on 07/01), oral Revlimid -Follows with Dr. Cramer -hgb and platelets at baseline BPH -Continue finasteride and tamsulosin DVT PROPHYLAXIS -SCDs for now until CTA resulted DISPOSITION -In my clinical judgment this beneficiary meets acute admission criteria, established by [facility], that includes being hospitalized through two midnights. ATTENDING ADDENDUM Patient seen and examined care coordinated with Shanell andersen PA-C This is a 66-year-old male with history of coronary artery disease on the chemo , chronic anemia and thrombocytopenia Presented to ER syncopal episode Patient was at work, became diaphoretic, syncopized His coworkers brought him to the ER Patient does not have any recollection of the event Was found to be hypotensive on presentation Blood pressure improved after IV hydration Patient is awake alert oriented in no focal neurological deficit CT head without contrast showed no acute issues CT angiogram of neck shows: Bilateral vertebral artery stenosis 70% on the left 50% on right Admitted to telemetry Ordered IV fluids Neuro eval requested, appreciate input Patient is continued with aspirin 81 daily, on statin Fasting lipid profile ordered in a.m. Vascular service consulted Syncope/mild elevation of troponin Rule out arrhythmia versus ACS Cardiology eval requested Monitor serial cardiac markers, resting echo Please refer to documentation by Shanell andersen PA-C for discussion of other chronic issues Melanie Stewart MD Advanced Directives Existing Living Will: No Existing Power of Tricot Knitter: No Resuscitation Status VTE Prophylaxis Will order VTE Prophylaxis: Yes
--- NOTE | 2017-07-04 14:20 | DIAGNOSTIC IMAGING REPORT ---
HEAD CTA HISTORY: Syncope. TECHNIQUE: Multiaxial CT images of the head were performed both before and after the intravenous administration of contrast to evaluate the major cerebral vessels. Maximum intensity projection images were also obtained. A dose lowering technique was utilized adhering to the principles of ALARA. COMPARISON: Head CTA 11/07/2012. FINDINGS: There is no mass, hematoma, midline shift, or acute infarct. Small focus of encephalomalacia within the high convexity of the right parietal lobe consistent with an old infarct. Mild calcified plaque within the bowel or carotid siphons. 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 IMPRESSION: 1. No significant stenosis or occlusion within the z[place] of [place]. 2. 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 3. No acute intracranial abnormality. 4. Small old right parietal infarct. Electronically signed by: Car Hagan M.D. 07/04/2017 2:19 PM Dictated Date/Time: 07/04/2017 1:49 PM
[2017-07-04] MEDS ORDERED: ASPIRIN 81 MG ECTAB PO ONE (15:00)
--- NOTE | 2017-07-04 15:04 | Cardiology Consultation ---
Cardiology Consultation Date of Service July 04, 2017. Cardiology Consultation Indication: Consultation for syncope History: This is a 66-year-old male patient who usually follows with Dr. Sandhu through our clinic. In December of last year he underwent coronary artery bypass surgery without sequela. Unfortunately in April she was diagnosed with multiple myeloma and has been receiving chemotherapy. He had his second dose of chemotherapy recently. 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 Today he was on the job and had a sudden syncopal event. The patient had no prodrome leading up to the syncope. He states he just went out. He had no symptoms of chest pain, tachycardia or heart palpitations leading up to the event. He is unsure of how long he was out. He does recall with the help of his workmates walking over to the truck. After which, he was taken to the emergency department where he has been admitted. He currently has no ongoing symptoms. The patient's EKG revealed a sinus bradycardia with a heart rate of 55 bpm. He has a right bundle branch block which is old. His admission labs indicate mild anemia with a hemoglobin of 9.8. The patient's first cardiac troponin or borderline elevated. Following his surgery he states that he has had some intermittent dizziness and lightheadedness. He did not think much of it until today. He has had no shortness of breath orthopnea. No heart palpitations, irregular heartbeat or tachycardia. Allergies: No known medical allergies Reported Home Medications Medications Dose Route/Sig Max Daily Dose Days Date Category Dose Instructions E-400 (Vitamin E) 400 Unit Cap 1 Cap PO DAILY 07/04/17 Reported Osteo Bi-Flex/5-Loxin Adv (Bluvkgetx-Vniodhbcicb-Jzjpnel) 1 Tab Tab 1 Tab PO DAILY 07/04/17 Reported Velcade (Bortezomib) 1 Mg/Ml Inj 1 Dose INJ UD 07/04/17 Reported Zinc (Zinc Gluconate) 50 Mg Tab 1 Tab PO DAILY 07/04/17 Reported Crestor (Rosuvastatin Calcium) 40 Mg Tab 40 Mg PO DAILY 07/04/17 Reported Micro-K Ext Rel (Potassium Chloride) 10 Meq Capcr 10 Meq PO DAILY 07/04/17 Reported Zofran (Ondansetron HCl) 4 Mg Tab 4 Mg PO Q12 PRN 07/04/17 Reported Bactroban 2% (Mupirocin) 30 Gm Cr 1 Appln EXT UD 07/04/17 Reported Revlimid (Lenalidomide) 10 Mg Cap 15 Mg PO UD 07/04/17 Reported take 15mg po on days 1-14, then 7 days off Decadron (Dexamethasone) 4 Mg Tab 10 Tabs PO UD 07/04/17 Reported on chemo days Caltrate 600 (Calcium Carbonate) 1,500 Mg Tab 2 Tab PO DAILY 07/04/17 Reported Aspirin Ec (Aspirin) 81 Mg Tab 81 Mg PO DAILY 07/04/17 Reported Zovirax (Acyclovir) 200 Mg Cap 400 Mg PO BID 07/04/17 Reported Lopressor (Metoprolol Tartrate) 25 Mg Tab 12.5 Mg PO BID 02/28/17 Reported Flomax (Tamsulosin Hcl) 0.4 Mg Cap 1 Cap PO DAILY 30 12/31/16 Reported Proscar (Finasteride) 5 Mg Tab 1 Tab PO DAILY 90 12/31/16 Reported Floranex (Lactobacillus Acidophilus) 1 Tab Tab 1 Tab PO TIDM 10 09/05/14 Rx Vitamin B12 100 Mcg (Cyanocobalamin) 100 Mcg Tab 100 Mcg PO DAILY 09/02/14 Reported Vision Formula/Lutein (Multiple Vitamins W/ Minerals) 1 Tab Tab 1 Tab PO DAILY 12/04/13 Reported Vitamin C (Ascorbic Acid) 1,000 Mg Tab 1,000 Mg PO DAILY 12/04/13 Reported Clobetasol Propionate 0.05 % Sha 1 Appln EXT DAILY PRN 11/05/12 Reported APPLY A THIN FILM TO DRY SCALP ONCE DAILY, LEAVE IN PLACE FOR 15 MINUTES THEN ADD WATER, LATHER AND RINSE THROUGHLY. Zetia (Ezetimibe) 10 Mg Tab 10 Mg PO DAILY 11/05/12 Reported Past medical history: As outlined above the patient underwent coronary artery bypass surgery in December 2016 receiving a MEJIAS to LAD, saphenous vein graft to the PDA and a sequential saphenous vein graft to the diagonal and obtuse marginal branch. After his surgery he was diagnosed with multiple myeloma and is under treatment. He has dyslipidemia and a history of essential hypertension. Previously he may have had a TIA many years ago. According to his he may have a history of cerebral aneurysms. Social history: The patient lives with his . He is currently a non-smoker. Review of systems: General: The patient denies weight change, night sweats, fever, chills. Head: The patient denies headache and prior head trauma. Cardiovascular: The patient denies chest pain or chest discomfort, dyspnea on exertion, palpitations, PND, orthopnea, edema, spontaneous shortness of breath, syncope and near syncope. Pulmonary: The patient denies cough, wheeze, pleurisy, hemoptysis, sputum, and excessive snoring. Gastrointestinal: The patient denies nausea, vomiting, diarrhea, constipation, bloating, hematemesis, hematochezia, and abdominal pain. Skin: The patient denies diaphoresis and rash. Musculoskeletal: The patient denies joint pain, joint swelling, myalgia, back pain, neck pain and prior injuries. Neurological: The patient denies prior stroke and seizures Vital Signs Past 12 Hours Date Time Temp Pulse Resp B/P (MAP) Pulse Ox O2 Delivery O2 Flow Rate FiO2 07/04/17 14:20 36.7 58 18 143/82 (102) 97 Room Air 07/04/17 13:14 68 18 108/64 94 07/04/17 12:48 96 Room Air 07/04/17 12:36 72 07/04/17 12:30 59 20 129/77 96 Room Air 07/04/17 11:59 72 22 170/84 97 Room Air 07/04/17 11:31 60 20 129/80 97 Room Air 07/04/17 10:31 63 16 125/74 97 Room Air 07/04/17 09:56 65 16 135/81 96 Room Air 07/04/17 09:22 36.9 55 15 91/55 96 Room Air 07/04/17 09:18 60 16 98/60 96 Room Air 58 92/62 59 88/52 07/04/17 09:17 79 General Appearance: Alert and Oriented x3. NAD. Head: Normocephalic Atraumatic. Eyes: PERRLA, EOMI, conjunctiva and sclera clear Neck: Supple. No carotid bruits noted. No JVD. No HJD. Respiratory: Breath sounds clear to auscultation bilaterally. No w/r/r. Cardiovascular: Reg rate and rhythm. S1 and S2 noted. No murmurs, rubs, gallops. PMI non displace. Abdomen: Normal bowel sounds, soft nontender. no abdominal bruits. Extremities: No edema, no clubbing or cyanosis. distal pulses 2/4 bilaterally. Neuro: No focal deficits. Psychiatric: Normal affect. Last 24 Hours Test 07/04/17 09:05 07/04/17 09:08 07/04/17 11:30 07/04/17 15:00 Bedside Glucose 132 mg/dl White Blood Count 6.89 K/uL Red Blood Count 3.25 M/uL Hemoglobin 9.8 g/dL Hematocrit 29.5 % Mean Corpuscular Volume 90.8 fL Mean Corpuscular Hemoglobin 30.2 pg Mean Corpuscular Hemoglobin Concent 33.2 g/dl Platelet Count 128 K/uL Mean Platelet Volume 11.6 fL Neutrophils (%) (Auto) 59.3 % Lymphocytes (%) (Auto) 24.1 % Monocytes (%) (Auto) 13.8 % Eosinophils (%) (Auto) 2.3 % Basophils (%) (Auto) 0.4 % Neutrophils # (Auto) 4.08 K/uL Lymphocytes # (Auto) 1.66 K/uL Monocytes # (Auto) 0.95 K/uL Eosinophils # (Auto) 0.16 K/uL Basophils # (Auto) 0.03 K/uL RDW Standard Deviation 54.5 fL RDW Coefficient of Variation 16.5 % Immature Granulocyte % (Auto) 0.1 % Immature Granulocyte # (Auto) 0.01 K/uL Prothrombin Time 11.1 SECONDS Prothromb Time International Ratio 1.1 Activated Partial Thromboplast Time 19.8 SECONDS Partial Thromboplastin Ratio 0.8 Sodium Level 138 mmol/L Potassium Level 3.8 mmol/L Chloride Level 106 mmol/L Carbon Dioxide Level 25 mmol/L Anion Gap 8.0 mmol/L Blood Urea Nitrogen 20 mg/dl Creatinine 1.24 mg/dl Est Creatinine Clear Calc Drug Dose 54.8 ml/min Estimated GFR () 69.8 Estimated GFR (Non- 60.2 BUN/Creatinine Ratio 15.9 Random Glucose 129 mg/dl Calcium Level 8.7 mg/dl Magnesium Level 2.0 mg/dl Total Bilirubin 0.3 mg/dl Direct Bilirubin < 0.1 mg/dl Aspartate Amino Transf (AST/SGOT) 31 U/L Alanine Aminotransferase (ALT/SGPT) 43 U/L Alkaline Phosphatase 57 U/L Total Creatine Kinase 77 U/L Creatine Kinase MB 1.8 ng/ml Creatine Kinase MB Ratio 2.3 Troponin I 0.073 ng/ml Total Protein 8.0 gm/dl Albumin 3.5 gm/dl Lipase 212 U/L Thyroid Stimulating Hormone (TSH) 2.000 uIu/ml Urine Color YELLOW Urine Appearance CLEAR Urine pH 6.0 Urine Specific [place] 1.015 Urine Protein NEG Urine Glucose (UA) NEG Urine Ketones NEG Urine Occult Blood NEG Urine Nitrite NEG Urine Bilirubin NEG Urine Urobilinogen NEG Urine Leukocyte Esterase NEG Urine WBC (Auto) 0 /hpf Urine RBC (Auto) 0-4 /hpf Urine Hyaline Casts (Auto) 1-5 /lpf Urine Epithelial Cells (Auto) 5-10 /lpf Urine Bacteria (Auto) NEG Impression: 1. Syncope of undetermined etiology 2. Recent coronary artery bypass surgery 3. Multiple myeloma 4. Anemia Recommendations: The patient's presentation may have been related to dehydration, anemia with multiple myeloma and recent start of chemotherapy. His blood pressure was low with his initial presentation. With his cardiac disease however, we have to be concerned about cardiac arrhythmias. He will be placed on a nurse monitoring. So far his cardiac markers are essentially negative. We will follow along with you during his hospital stay.
--- NOTE | 2017-07-04 15:26 | Neurology Consultation ---
Neurology Consultation Date of Consultation: July 04, 2017. Attending Physician: Ray Salomon DO Primary Care Physician: Tutu Barber M.D. Reason for Consultation: syncope, vertebral artery stenosis History of Present Illness Source: patient, spouse Luis Miguel is a 66 year old male with a PMH CAD, S/P CABG 4 12/2016, HTN who presents the ED after syncopal episode just after he arrived at work. 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 He states he does not remember passing out and was not sweaty. He does remember being put in a truck by his coworkers. He was diagnosed with multiple myeloma and underwent his second Velcade treatment on . He is also on oral Revlimid. He feels as though he is tolerating his chemotherapy well. He states he is eating and drinking well. When he arrived in the ED he was mildly hypotensive with BP of 98/60 which dropped to 88/52 with standing this improved with IV fluids. denies CP, SOB, abdominal pain, weakness, numbness tingling, vision changes, swallowing difficulty N, V. He had not reported biting tongue, incontinence or jerking movement or post ictal confusion. he does not have a history of seizure but he has a brother with diagnosis Past Medical/Surgical History Medical Problems: (1) Traumatic hematoma of right hand Status: Acute Social History Smoking Status: Never smoker Alcohol Use: socially Marital Status: Housing Status: lives with family Occupation Status: employed Allergies Coded Allergies: No Known Allergies (Unverified , 07/04/17) Current Inpatient Medications Current Inpatient Medications Medications (Trade) Dose Ordered Sig/Agnes Route Start Time Stop Time Status Last Admin Dose Admin Ioversol (Optiray 320) 100 ml UD PRN IV 07/04/17 12:30 07/08/17 12:29 Acetaminophen (Tylenol Tab) 650 mg Q4H PRN PO 07/04/17 12:30 08/03/17 12:29 Ondansetron HCl (Zofran Inj) 4 mg Q6H PRN IV 07/04/17 12:30 08/03/17 12:29 Sodium Chloride 1,000 ml @ 100 mls/hr Q10H IV 07/04/17 15:00 08/03/17 14:59 Acyclovir (Zovirax Cap) 400 mg BID PO 07/04/17 21:00 08/03/17 20:59 Aspirin (Ecotrin Tab) 81 mg DAILY PO 07/05/17 09:00 08/04/17 08:59 Cyanocobalamin (Vitamin B-12 Tab) 100 mcg DAILY PO 07/05/17 09:00 08/04/17 08:59 EZETIMIBE (Zetia Tab) 10 mg DAILY PO 07/05/17 09:00 08/04/17 08:59 Finasteride (Proscar Tab) 5 mg DAILY PO 07/05/17 09:00 08/04/17 08:59 Lactobacillus Acidophilus (Floranex Tab) 1 tab TIDM PO 07/04/17 17:00 08/03/17 16:59 Metoprolol Tartrate (Lopressor Tab) 12.5 mg BID PO 07/04/17 21:00 08/03/17 20:59 Multivitamins/ Minerals (Multivitamin W/ Minerals Tab) 1 tab DAILY PO 07/05/17 09:00 08/04/17 08:59 Potassium Chloride (Klor-Con M10) 10 meq DAILY PO 07/05/17 09:00 08/04/17 08:59 Rosuvastatin Calcium (Crestor Tab) 40 mg DAILY PO 07/05/17 09:00 08/04/17 08:59 UNV Tamsulosin HCl (Flomax Cap) 0.4 mg DAILY PO 07/05/17 09:00 08/04/17 08:59 UNV [id number] Acetate (Vitamin E Cap) 400 interunit DAILY PO 07/05/17 09:00 08/04/17 08:59 UNV Ascorbic Acid (Vitamin C Tab) 1,000 mg QAM PO 07/05/17 09:00 08/04/17 08:59 Calcium Carbonate (oS-Angus 500 TAB) 2,500 mg DAILY PO 07/05/17 09:00 08/04/17 08:59 UNV Zinc Sulfate (Zinc Sulfate Cap) 220 mg DAILY PO 07/05/17 09:00 08/04/17 08:59 UNV Aspirin (Ecotrin Tab) 81 mg 1434 ONCE PO 07/04/17 14:34 07/04/17 14:35 UNV Physical Exam Vital Signs (Past 24 Hrs): Date Time Temp Pulse Resp B/P (MAP) Pulse Ox O2 Delivery O2 Flow Rate FiO2 07/04/17 14:20 36.7 58 18 143/82 (102) 97 Room Air 07/04/17 13:14 68 18 108/64 94 07/04/17 12:48 96 Room Air 07/04/17 12:36 72 07/04/17 12:30 59 20 129/77 96 Room Air 07/04/17 11:59 72 22 170/84 97 Room Air 07/04/17 11:31 60 20 129/80 97 Room Air 07/04/17 10:31 63 16 125/74 97 Room Air 07/04/17 09:56 65 16 135/81 96 Room Air 07/04/17 09:22 36.9 55 15 91/55 96 Room Air 07/04/17 09:18 60 16 98/60 96 Room Air 58 92/62 59 88/52 07/04/17 09:17 79 Physical Exam: Constitutional: appearance nourished, healthy and normal Ears, Nose, Mouth and Throat: mucous membranes moist, no injection and skin normal, eyes normal Cardiovascular: normal S-1 and S-2 and regular rate and rhythm Respiratory: clear to auscultation (CTA) and no rales, rhonchi or wheeze Musculoskeletal: no peripheral edema and good distal pulses Skin: no stigmata of neurocutaneous disease noted and normal and intact Eyes: extraocular muscles intact (EOMI) and pupils equal, round and reactive to light (PERRL) NEUROLOGIC EXAMINATION: Mental status: Alert and interactive Oriented to [facility], 2018, [place] Oriented to person Speech fluent with no evidence of aphasia Cranial Nerves smile eye brow raise symmetric, tongue midline Reflexes: Deep tendon reflexes were symmetrical and graded 2/5. Plantar responses were flexor. Sensory: vibration, light or cool touch, GT proprioception intact Coordination: Romberg absent Gait/Stance: Posture normal. Gait normal: with steady with steps, base, turning, tandem gait. Motor: Negative for pronator drift of out stretched arms with eyes closed. 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/5 , hip flex patellar/plantar flex ext 5/5 Laboratory Results Past 24 Hours: 07/04/17 09:08 Red Blood Count 3.25, Mean Corpuscular Volume 90.8, Mean Corpuscular Hemoglobin 30.2, Mean Corpuscular Hemoglobin Concent 33.2, Mean Platelet Volume 11.6, Neutrophils (%) (Auto) 59.3, Lymphocytes (%) (Auto) 24.1, Monocytes (%) (Auto) 13.8, Eosinophils (%) (Auto) 2.3, Basophils (%) (Auto) 0.4, Neutrophils # (Auto ) 4.08, Lymphocytes # (Auto) 1.66, Monocytes # (Auto) 0.95, Eosinophils # (Auto ) 0.16, Basophils # (Auto) 0.03 07/04/17 09:08 Test 07/04/17 09:05 07/04/17 09:08 07/04/17 11:30 07/04/17 15:00 Bedside Glucose 132 mg/dl (70-99) White Blood Count 6.89 K/uL (4.8-10.8) Red Blood Count 3.25 M/uL (4.7-6.1) Hemoglobin 9.8 g/dL (14.0-18.0) Hematocrit 29.5 % (42-52) Mean Corpuscular Volume 90.8 fL (80-100) Mean Corpuscular Hemoglobin 30.2 pg (25-34) Mean Corpuscular Hemoglobin Concent 33.2 g/dl (32-36) Platelet Count 128 K/uL (130-400) Mean Platelet Volume 11.6 fL (7.4-10.4) Neutrophils (%) (Auto) 59.3 % Lymphocytes (%) (Auto) 24.1 % Monocytes (%) (Auto) 13.8 % Eosinophils (%) (Auto) 2.3 % Basophils (%) (Auto) 0.4 % Neutrophils # (Auto) 4.08 K/uL (1.4-6.5) Lymphocytes # (Auto) 1.66 K/uL (1.2-3.4) Monocytes # (Auto) 0.95 K/uL (0.11-0.59) Eosinophils # (Auto) 0.16 K/uL (0-0.5) Basophils # (Auto) 0.03 K/uL (0-0.2) RDW Standard Deviation 54.5 fL (36.4-46.3) RDW Coefficient of Variation 16.5 % (11.5-14.5) Immature Granulocyte % (Auto) 0.1 % Immature Granulocyte # (Auto) 0.01 K/uL (0.00-0.02) Prothrombin Time 11.1 SECONDS (9.0-12.0) Prothromb Time International Ratio 1.1 (0.9-1.1) Activated Partial Thromboplast Time 19.8 SECONDS (21.0-31.0) Partial Thromboplastin Ratio 0.8 Anion Gap 8.0 mmol/L (3-11) Est Creatinine Clear Calc Drug Dose 54.8 ml/min Estimated GFR () 69.8 Estimated GFR (Non- 60.2 BUN/Creatinine Ratio 15.9 (10-20) Calcium Level 8.7 mg/dl (8.5-10.1) Magnesium Level 2.0 mg/dl (1.8-2.4) Total Bilirubin 0.3 mg/dl (0.2-1) Direct Bilirubin < 0.1 mg/dl (0-0.2) Aspartate Amino Transf (AST/SGOT) 31 U/L (15-37) Alanine Aminotransferase (ALT/SGPT) 43 U/L (12-78) Alkaline Phosphatase 57 U/L (45-117) Total Creatine Kinase 77 U/L (39-308) Creatine Kinase MB 1.8 ng/ml (0.5-3.6) Creatine Kinase MB Ratio 2.3 (0-3.0) Total Protein 8.0 gm/dl (6.4-8.2) Albumin 3.5 gm/dl (3.4-5.0) Lipase 212 U/L (73-393) Thyroid Stimulating Hormone (TSH) 2.000 uIu/ml (0.300-4.500) Urine Color YELLOW Urine Appearance CLEAR (CLEAR) Urine pH 6.0 (4.5-7.5) Urine Specific [place] 1.015 (1.000-1.030) Urine Protein NEG (NEG) Urine Glucose (UA) NEG (NEG) Urine Ketones NEG (NEG) Urine Occult Blood NEG (NEG) Urine Nitrite NEG (NEG) Urine Bilirubin NEG (NEG) Urine Urobilinogen NEG (NEG) Urine Leukocyte Esterase NEG (NEG) Urine WBC (Auto) 0 /hpf (0-5) Urine RBC (Auto) 0-4 /hpf (0-4) Urine Hyaline Casts (Auto) 1-5 /lpf (0-5) Urine Epithelial Cells (Auto) 5-10 /lpf (0-5) Urine Bacteria (Auto) NEG (NEG) Imaging CTA head- No significant stenosis or occlusion within the [place]. 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 No acute intracranial abnormality. Small old right parietal infarct. CTA neck- . Prominent atheromatous plaquing of the right carotid bulb results in 50% luminal narrowing at the origin of the right internal carotid artery. No hemodynamically significant stenosis about the left carotid vasculature. Calcified plaque at the origin of the bilateral vertebral arteries resulting in 70% stenosis on the left and at least 50% luminal narrowing on the right. No aneurysm, dissection or proximal branch occlusion identified. Impression 66 year old male s/p syncope and vert stenosis Plan 1 vert stenosis- reported 2012 - concern for right ICA stenosis 75%, follow-up cerebral angiogram felt that the carotid stenosis was more in the range of 35% 12/2016-carotid ultrasound demonstrated less than 50% stenosis bilaterally 2. currently on aspirin 81 mg daily 3. vertebral artery stenosis- documented in previous records along with intracranial aneurysm which are followed by [facility] 4. cardiology for any arrhythmia 5 fluid resuscitation improved symptoms 6. check orthostatics 7. will need vascular follow up 8. glucose slightly elevated do to steroids 9. no further neurologist intervention needed. hypotensive likely do to dehydration/chemotherapy I have seen and discussed above patient with Dr Lara Benson, neurology. Pt seen and examined. Spell of diaphoresis, brief LOC , documented hypotension, and dehydration. No evidence of TIA or sz. Pt should follow-up with NS regarding internal carotid aneurysm, also unrelated to this episode. MILLI Benson MD
[2017-07-04] MEDS: LACTOBACILLUS ACIDOPHILUS (FLORANEX) TAB PO SCH (18:16)
[2017-07-04] MEDS ORDERED: ENOXAPARIN 40 MG/0.4 ML SYR SQ ONE (18:30)
[2017-07-04] MEDS ORDERED: NURSING VERBAL MED ORDER ONE (19:15)
--- NOTE | 2017-07-04 19:53 | Medical Consult ---
Consultation Date of Consultation: July 04, 2017. Attending Physician: Ray Salomon DO Reason for Consultation: multiple myeloma Patient admitted with syncopal episode History of Present Illness 66 year old male with history of CAD s/p CABG in 12/2016. He was recently diagnosed with multiple myeloma and is on first cycle of VRd (velcade revlimid and dexamethasone). He is C1D11 today. He received D1D8 velcade on Tuesday. He has been taking his revlimid and dexamethasone as directed and states he has been tolerating it well. 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 He states that he has been feeling good and he ate his breakfast this morning and went to work as usual. He states that he was standing on the road waiting for materials when he suddenly felt lightheaded and then he does not recall what happened after that. He denies any chest pain or headache or shortness of breath or tongue bite or incontinence. He denies any bleeding symptoms. He states he does not feel that LOC was for long because he recall being put in a truck by coworkers. He states that appetite has been good and states that he is eating and drinking In ER BP was decreased, 98/60, and decreased with standing was 88/52. He feels well now and BP improved with IV hydration. He denies any fever or chills He denies any paresthesias or speech changes or weakness He states that on Tuesday his right calf had a little cramping but he states that he had this in the past prior to chemo or myeloma diagnosis. He states that right great toe is still sore/tender, has been using an antibiotic ointment on it, and he has noticed a slight swelling around the toenail He denies any history of VTE and he states that he has been active and has not missed any of his aspirin. Past Medical/Surgical History PMH/PSH: CAD S/P cabg [place] 12/2016, Multiple myeloma and anemia and thrombocytopenia in the setting of his myeloma, dyslipidemia, history of CVA many years ago, HTN, cerebral aneurysm Medical Problems: (1) Traumatic hematoma of right hand Status: Acute Family History FH: CAD (coronary artery disease) FATHER (Fatal [place] in his 40s) Social History not smoking, no alcohol or drugs Smoking Status: Never Smoker Alcohol Use: socially Marital Status: Housing Status: lives with family Occupation Status: employed Allergies Coded Allergies: No Known Allergies (Unverified , 07/04/17) Current Inpatient Medications Current Inpatient Medications Medications (Trade) Dose Ordered Sig/Agnes Route Start Time Stop Time Status Last Admin Dose Admin Ioversol (Optiray 320) 100 ml UD PRN IV 07/04/17 12:30 07/08/17 12:29 Acetaminophen (Tylenol Tab) 650 mg Q4H PRN PO 07/04/17 12:30 08/03/17 12:29 Ondansetron HCl (Zofran Inj) 4 mg Q6H PRN IV 07/04/17 12:30 08/03/17 12:29 Sodium Chloride 1,000 ml @ 100 mls/hr Q10H IV 07/04/17 15:00 08/03/17 14:59 07/04/17 14:15 100 MLS/HR Acyclovir (Zovirax Cap) 400 mg BID PO 07/04/17 21:00 08/03/17 20:59 Aspirin (Ecotrin Tab) 81 mg DAILY PO 07/05/17 09:00 08/04/17 08:59 Cyanocobalamin (Vitamin B-12 Tab) 100 mcg DAILY PO 07/05/17 09:00 08/04/17 08:59 EZETIMIBE (Zetia Tab) 10 mg DAILY PO 07/05/17 09:00 08/04/17 08:59 Finasteride (Proscar Tab) 5 mg DAILY PO 07/05/17 09:00 08/04/17 08:59 Lactobacillus Acidophilus (Floranex Tab) 1 tab TIDM PO 07/04/17 17:00 08/03/17 16:59 07/04/17 18:16 1 TAB Metoprolol Tartrate (Lopressor Tab) 12.5 mg BID PO 07/04/17 21:00 08/03/17 20:59 Multivitamins/ Minerals (Multivitamin W/ Minerals Tab) 1 tab DAILY PO 07/05/17 09:00 08/04/17 08:59 Potassium Chloride (Klor-Con M10) 10 meq DAILY PO 07/05/17 09:00 08/04/17 08:59 Rosuvastatin Calcium (Crestor Tab) 40 mg DAILY PO 07/05/17 09:00 08/04/17 08:59 Tamsulosin HCl (Flomax Cap) 0.4 mg DAILY PO 07/05/17 09:00 08/04/17 08:59 [id number] Acetate (Vitamin E Cap) 400 interunit DAILY PO 07/05/17 09:00 08/04/17 08:59 Ascorbic Acid (Vitamin C Tab) 1,000 mg QAM PO 07/05/17 09:00 08/04/17 08:59 Calcium Carbonate (oS-Angus 500 TAB) 2,500 mg DAILY PO 07/05/17 09:00 08/04/17 08:59 Zinc Sulfate (Zinc Sulfate Cap) 220 mg DAILY PO 07/05/17 09:00 08/04/17 08:59 Miscellaneous Information (Nursing Verbal Med Order) 1 ea ONE ONCE N/A 07/04/17 19:15 07/04/17 19:16 UNV Review of Systems Constitutional: No fever, No chills, No weight loss, No weakness, No fatigue ENT: No unusual epistaxis Respiratory: No cough, No sputum, No wheezing, No shortness of breath, No dyspnea on exertion, No dyspnea at rest, No hemoptysis Cardiovascular: No chest pain, No edema, No palpitations Abdomen: No pain, No nausea, No vomiting, No diarrhea, No constipation, No GI bleeding Musculoskeletal: + swelling (right great toe localized tenderness at the sides around the nail), + calf pain (mild cramping in right calf - per patient on Tuesday) Genitourinary - Male: No hematuria, No dysuria, No urinary frequency, No urinary incontinence Neurologic: + problem reported (syncopal episode - see HPI), No numbness/ tingling, No vertigo Endocrine: + fatigue (mild) Hematologic / Lymphatic: No swollen lymph nodes Integumentary: No rash, No itch Physical Exam Date Time Temp Pulse Resp B/P (MAP) Pulse Ox O2 Delivery O2 Flow Rate FiO2 07/04/17 17:52 73 152/78 (102) 07/04/17 17:51 73 132/76 (94) 07/04/17 17:51 65 149/83 (105) 07/04/17 16:00 97 Room Air 07/04/17 15:16 36.6 60 18 154/84 (107) 97 07/04/17 14:20 36.7 58 18 143/82 (102) 97 Room Air 07/04/17 13:14 68 18 108/64 94 07/04/17 12:48 96 Room Air 07/04/17 12:36 72 07/04/17 12:30 59 20 129/77 96 Room Air 07/04/17 11:59 72 22 170/84 97 Room Air 07/04/17 11:31 60 20 129/80 97 Room Air 07/04/17 10:31 63 16 125/74 97 Room Air 07/04/17 09:56 65 16 135/81 96 Room Air 07/04/17 09:22 36.9 55 15 91/55 96 Room Air 07/04/17 09:18 60 16 98/60 96 Room Air 58 92/62 59 88/52 07/04/17 09:17 79 General Appearance: WD/WN, no apparent distress Head: normocephalic, atraumatic Eyes: EOMI, sclerae normal ENT: pharynx normal Neck: supple, no adenopathy, no JVD Respiratory/Chest: chest non-tender, lungs clear, normal breath sounds, no respiratory distress, no accessory muscle use Cardiovascular: regular rate, rhythm, no edema, no gallop, no JVD, no murmur Abdomen/GI: normal bowel sounds, non tender, soft, no organomegaly Neurologic/Psych: no motor/sensory deficits (grossly), alert, oriented x 3 Skin: warm/dry, no rash (slight swelling around right great toenail and tenderness at the sides, no erythema ) Lymphatic: no adenopathy Laboratory Results Last 24 Hours Test 07/04/17 09:05 07/04/17 09:08 07/04/17 11:30 07/04/17 15:24 Bedside Glucose 132 mg/dl White Blood Count 6.89 K/uL Red Blood Count 3.25 M/uL Hemoglobin 9.8 g/dL Hematocrit 29.5 % Mean Corpuscular Volume 90.8 fL Mean Corpuscular Hemoglobin 30.2 pg Mean Corpuscular Hemoglobin Concent 33.2 g/dl Platelet Count 128 K/uL Mean Platelet Volume 11.6 fL Neutrophils (%) (Auto) 59.3 % Lymphocytes (%) (Auto) 24.1 % Monocytes (%) (Auto) 13.8 % Eosinophils (%) (Auto) 2.3 % Basophils (%) (Auto) 0.4 % Neutrophils # (Auto) 4.08 K/uL Lymphocytes # (Auto) 1.66 K/uL Monocytes # (Auto) 0.95 K/uL Eosinophils # (Auto) 0.16 K/uL Basophils # (Auto) 0.03 K/uL RDW Standard Deviation 54.5 fL RDW Coefficient of Variation 16.5 % Immature Granulocyte % (Auto) 0.1 % Immature Granulocyte # (Auto) 0.01 K/uL Prothrombin Time 11.1 SECONDS Prothromb Time International Ratio 1.1 Activated Partial Thromboplast Time 19.8 SECONDS Partial Thromboplastin Ratio 0.8 Sodium Level 138 mmol/L Potassium Level 3.8 mmol/L Chloride Level 106 mmol/L Carbon Dioxide Level 25 mmol/L Anion Gap 8.0 mmol/L Blood Urea Nitrogen 20 mg/dl Creatinine 1.24 mg/dl Est Creatinine Clear Calc Drug Dose 54.8 ml/min Estimated GFR () 69.8 Estimated GFR (Non- 60.2 BUN/Creatinine Ratio 15.9 Random Glucose 129 mg/dl Calcium Level 8.7 mg/dl Magnesium Level 2.0 mg/dl Total Bilirubin 0.3 mg/dl Direct Bilirubin < 0.1 mg/dl Aspartate Amino Transf (AST/SGOT) 31 U/L Alanine Aminotransferase (ALT/SGPT) 43 U/L Alkaline Phosphatase 57 U/L Total Creatine Kinase 77 U/L Creatine Kinase MB 1.8 ng/ml Creatine Kinase MB Ratio 2.3 Troponin I 0.073 ng/ml 0.050 ng/ml Total Protein 8.0 gm/dl Albumin 3.5 gm/dl Lipase 212 U/L Thyroid Stimulating Hormone (TSH) 2.000 uIu/ml Urine Color YELLOW Urine Appearance CLEAR Urine pH 6.0 Urine Specific [place] 1.015 Urine Protein NEG Urine Glucose (UA) NEG Urine Ketones NEG Urine Occult Blood NEG Urine Nitrite NEG Urine Bilirubin NEG Urine Urobilinogen NEG Urine Leukocyte Esterase NEG Urine WBC (Auto) 0 /hpf Urine RBC (Auto) 0-4 /hpf Urine Hyaline Casts (Auto) 1-5 /lpf Urine Epithelial Cells (Auto) 5-10 /lpf Urine Bacteria (Auto) NEG CXR:. Left hemidiaphragmatic elevation with subsegmental left basilar opacities suggesting atelectasis or scarring. 2. Cardiomegaly with prior median sternotomy and CABG. Head CTA 1. No significant stenosis or occlusion within the [place]. 2. 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 3. No acute intracranial abnormality. 4. Small old right parietal infarct CT angiography 1. Prominent atheromatous plaquing of the right carotid bulb results in 50% luminal narrowing at the origin of the right internal carotid artery. 2. No hemodynamically significant stenosis about the left carotid vasculature. 3. Calcified plaque at the origin of the bilateral vertebral arteries resulting in 70% stenosis on the left and at least 50% luminal narrowing on the right. 4. No aneurysm, dissection or proximal branch occlusion identified. Assessment & Plan 66 year old male with multiple myeloma C1D11 of VRd (velcade, revlimid and dexamethasone) admitted for syncopal event Check V/Q scan and venous doppler of bilateral lower extremities AND CHECK eCHO continue aspirin. He is on telemetry. cadiology and neuro consults appreciated Lovenox 40mg SC daily at this time for VTE prophylaxis If doppler or V/Q positive - give lovenox 1mg/kg SC Q12h Volume repletion. encourage oral hydration Patient reports feeling back to normal since receiving IVFs He agree to above workup No indication for transfusion at this time Thrombocytopenia is improved Monitor CBC Continue with revlimid - (day #11 of 14 today - dose was reduced for cycle 1 due to his thrombocytopenia) podiatry consult Discussed with Dr Stewart at time of consult. Discussed with Shanell JEAN f/u in the office upon discharge thank you for consult
--- NOTE | 2017-07-04 20:38 | DIAGNOSTIC IMAGING REPORT ---
VENOUS DOPPLER LWR EXT BILA CLINICAL HISTORY: 66 years-old Male presenting with rule out DVT, call with wet read. TECHNIQUE: Real-time grayscale and color and spectral Doppler ultrasound imaging of the veins of the bilateral lower extremities was performed. Compression and augmentation were also utilized. COMPARISON: None. FINDINGS: Right: Common femoral vein: Patent. Greater saphenous vein: Patent. Deep femoral vein: Patent. Femoral vein: Patent. Popliteal vein: Patent. Calf veins: Patent. Left: Common femoral vein: Patent. Greater saphenous vein: Patent. Deep femoral vein: Patent. Femoral vein: Patent. Popliteal vein: Patent. Calf veins: Patent. Other: None. IMPRESSION: No evidence of deep venous thrombosis. Electronically signed by: Son Nolan M.D. 07/04/2017 8:37 PM Dictated Date/Time: 07/04/2017 8:36 PM
[2017-07-04] MEDS ORDERED: LENALIDOMIDE 10 MG PO SCH (21:00)
--- NOTE | 2017-07-04 21:31 | DIAGNOSTIC IMAGING REPORT ---
LUNG IMAGING VQ CLINICAL HISTORY: syncopal event, rule out PE. COMPARISON STUDY: Chest 07/04/2017. TECHNIQUE: Immediately following the inhalation of 33 mCi of technetium 99 M DTPA for the ventilation scan and the intravenous administration of 6 mCi of technetium 99 M MAA for the perfusion scan, anterior, oblique, lateral, and posterior views of the chest were obtained. FINDINGS: Enlargement cardiac silhouette. No perfusion defects identified. Specifically there are no segmental or mismatched defects within the lungs. Diminished ventilation with the upper lobes raising the possibility of emphysema. IMPRESSION: Above findings are consistent with a very low probability scan. Electronically signed by: Car Hagan M.D. 07/04/2017 9:29 PM Dictated Date/Time: 07/04/2017 9:28 PM
[2017-07-04] MEDS: ACYCLOVIR 200 MG CAP PO SCH (21:40)
[2017-07-04] MEDS: METOPROLOL TARTRATE 25 MG TAB PO SCH (21:40)
[2017-07-05] MEDS: SODIUM CHLORIDE 0.9% 1000ML 1,000 ML IV SCH ×2 (00:43→10:35)
[2017-07-05 03:48] VITALS: BP 156/92; PULSE 63; TEMP 36.6; O2SAT 97
--- NOTE | 2017-07-05 06:29 | Clinical Documentation Query ---
CLINICAL DOCUMENTATION QUERY 66 year old male who presents to the Emergency Room with complaints of syncope In your clinical opinion is this patient being managed for: ( x) Demand ischemia in setting of dehydration ( ) Not Agree ( ) Other explanation of clinical findings (No explanation is considered a No Response) ( ) Unable to determine ( ) Need to Discuss (Phone CDS or qliq) (No discussion is considered a No Response) The medical record reflects the following clinical findings, treatment, and risk factors. Clinical Indicators: Troponin 0.073, 0.050, 0.050, BUN 20, Creatinine 1.24, +hypotension (88/52) Treatment: IVF's with boluses, daily PRP's, serial Troponins, Risk Factors: Age, CAD, dehydration, hypotension Please clarify and document your clinical opinion in the progress notes and discharge summary. Terms such as "probable", "suspected", "likely", "questionable", "possible", or "still to be ruled out" are acceptable. IF IN AGREEMENT, YOU MUST DOCUMENT ABOVE DIAGNOSTIC STATEMENT IN DAILY PROGRESS NOTES AND DISCHARGE SUMMARY. This document is not part of the patient's record. Thank You, Los Pearson, RN [phone] & via qlicCONNECT
[2017-07-05 06:43] LABS: CREATININE 0.91 mg/dl (0.60-1.40)
[2017-07-05 06:44] LABS: CALCIUM 7.8 mg/dl (8.5-10.1); POTASSIUM 4.1 mmol/L (3.5-5.1)
[2017-07-05 06:45] LABS: HEMATOCRIT 24.7 % (42-52); HEMOGLOBIN 8.4 g/dL (14.0-18.0); MEAN CELL VOLUME 90.1 fL (80-100); MEAN CORPUSCULAR HEMOGLOBIN 30.7 pg (25-34); MEAN PLATELET VOLUME 12.1 fL (7.4-10.4); PLATELET COUNT 102 K/uL (130-400); RED CELL DISTRIBUTION WIDTH CV 16.6 % (11.5-14.5); RED CELL DISTRIBUTION WIDTH SD 54.7 fL (36.4-46.3); WHITE BLOOD COUNT 3.63 K/uL (4.8-10.8)
[2017-07-05 07:45] VITALS: BP 157/90; PULSE 77
[2017-07-05] MEDS: METOPROLOL TARTRATE 25 MG TAB PO SCH (07:49)
[2017-07-05] MEDS: LACTOBACILLUS ACIDOPHILUS (FLORANEX) TAB PO SCH ×2 (07:50→11:37)
[2017-07-05] MEDS: ACYCLOVIR 200 MG CAP PO SCH (07:50)
[2017-07-05 07:55] VITALS: BP 134/84; PULSE 52; TEMP 36.4; O2SAT 95
[2017-07-05] MEDS ORDERED: NURSING VERBAL MED ORDER ONE (08:00)
[2017-07-05 08:29] VITALS: BP_SYST 131; BP_SYST 149; BP_DIAS 71; BP_DIAS 75; BP_DIAS 77; PULSE 54; PULSE 66; PULSE 67
[2017-07-05] MEDS ORDERED: POTASSIUM CHLORIDE 10 MEQ TABCR PO SCH (09:00)
[2017-07-05] MEDS ORDERED: CEROVITE ADV FORMULA TAB PO SCH (09:00)
[2017-07-05] MEDS ORDERED: ASCORBIC ACID 500 MG TAB PO SCH (09:00)
[2017-07-05] MEDS ORDERED: FINASTERIDE 5 MG TAB PO SCH (09:00)
[2017-07-05] MEDS ORDERED: TAMSULOSIN HCL 0.4 MG CAP PO SCH (09:00)
[2017-07-05] MEDS ORDERED: ASPIRIN 81 MG ECTAB PO SCH (09:00)
[2017-07-05] MEDS ORDERED: [UNRECOGNIZED DRUG - OTHER] PO SCH (09:00)
[2017-07-05] MEDS ORDERED: CYANOCOBALAMIN 100 MCG TAB (VIT B-12) PO SCH (09:00)
[2017-07-05] MEDS ORDERED: ZINC SULFATE 220 MG CAP PO SCH (09:00)
[2017-07-05] MEDS ORDERED: ROSUVASTATIN CALCIUM 20 MG TAB PO SCH (09:00)
[2017-07-05] MEDS ORDERED: TOCOPHERYL, DL-ALPHA 400 INTER.UNIT CAP PO SCH (09:00)
[2017-07-05] MEDS ORDERED: CALCIUM CARBONATE 1250MG TAB PO SCH (09:00)
[2017-07-05] MEDS ORDERED: EZETIMIBE 10MG TAB PO SCH (09:00)
--- NOTE | 2017-07-05 09:16 | ECHOCARDIOGRAM REPORT ---
*NOTICE TO RECEIVING DEMOCRAT AGENCY This information is strictly Confidential and protected under [place] law. [place] law prohibits you from making any further disclosure of this information unless further disclosure is expressly permitted by the written consent of the person to whom it pertains or is authorized by law. A general authorization for the release of medical or other information is not sufficient for this purpose. Hospital accepts no responsibility if the information is made available to any other person, INCLUDING THE PATIENT. Interpretation Summary * Name: SUZETTE GRIFFITHS Study Date: 07/04/2017 01:26 PM BP: 139/77 mmHg * Patient Location: [facility] HR: 72 * : 1950 (M/d/yyyy) Gender: Male Height: 67 in * Age: 66 yrs Ethnicity: [place] Weight: 166 lb * Ordering Physician: Shanell Collins * Referring Physician: Self, Referred * Performed By: Nighat Penn RCS * * Reason For Study: Syncope * BSA: 1.9 m2 * -- Conclusions -- * The left ventricular wall motion is normal. * There is borderline concentric left ventricular hypertrophy. * Ejection Fraction = 55-60%. * The right ventricle is normal in size and function. * Aortic valve sclerosis mild, without significant aortic valvular stenosis. * There is mild tricuspid regurgitation. * Mild pulmonary hypertension is present. * The calculated pulmonary artery systolic pressure is 41 mmHg assuming a right atrial pressure of 3 mmHg. Procedure Details * A complete two-dimensional transthoracic echocardiogram was performed (2D, M-mode, Doppler and color flow Doppler). Left Ventricle * The left ventricle is normal in size. * There is borderline concentric left ventricular hypertrophy. * Left ventricular systolic function is normal. * Ejection Fraction = 55-60%. * The left ventricular wall motion is normal. Right Ventricle * The right ventricle is normal in size and function. * The right ventricular systolic function is normal as assessed by tricuspid annular plane systolic excursion (TAPSE) (normal >1.5 cm). Atria * The left atrium is mildly dilated. * Right atrial size is normal. * There is no evidence of atrial septal defect, but resolution does not allow assessment for a patent foramen ovale. Mitral Valve * The mitral valve is normal. * There is no mitral valve stenosis. * Significant mitral regurgitation is absent. Tricuspid Valve * The tricuspid valve is normal. * There is no tricuspid stenosis. * There is mild tricuspid regurgitation. * Mild pulmonary hypertension is present. The calculated pulmonary artery systolic pressure is 41 mmHg assuming a right atrial pressure of 3 mmHg. Aortic Valve * The aortic valve is trileaflet. * Aortic valve sclerosis mild, without significant aortic valvular stenosis. * Aortic stenosis is absent. * There is no significant aortic regurgitation. Pulmonic Valve * The pulmonary valve is not well seen, but the Doppler examination is normal without significant regurgitation or stenosis. Great Vessels * The aortic root and proximal ascending aorta are normal sized. Pericardium/Pleural * There is no pericardial effusion. Great Vessels * Normal inferior vena cava diameter and respiratory variation suggests normal central venous pressure. Left Ventricular Diastolic Function * Grade I diastolic dysfunction, (abnormal relaxation pattern). MMode 2D Measurements and Calculations IVSd 1.1 cm IVSs 1.5 cm LVIDd 3.9 cm LVIDs 2.5 cm LVPWd 1.1 cm LVPWs 1.4 cm IVS/LVPW 0.99 FS 36.3 % EDV(Teich) 67.7 ml ESV(Teich) 22.6 ml EF(Teich) 66.7 % EDV(cubed) 61.4 ml ESV(cubed) 15.8 ml EF(cubed) 74.2 % % IVS thick 33.3 % % LVPW thick 23.4 % LV mass(C)d 147.4 grams LV mass(C)dI 78.9 grams/m\S\2 LV mass(C)s 118.3 grams LV mass(C)sI 63.3 grams/m\S\2 SV(Teich) 45.2 ml SI(Teich) 24.2 ml/m\S\2 SV(cubed) 45.6 ml SI(cubed) 24.4 ml/m\S\2 Ao root diam 3.5 cm Ao root area 9.7 cm\S\2 ACS 2.0 cm LA dimension 4.4 cm LA/Ao 1.2 EDV(MOD-sp4) 121.0 ml ESV(MOD-sp4) 54.0 ml EF(MOD-sp4) 55.4 % EDV(MOD-sp2) 110.0 ml ESV(MOD-sp2) 44.0 ml EF(MOD-sp2) 60.0 % SV(MOD-sp4) 67.0 ml SI(MOD-sp4) 35.9 ml/m\S\2 SV(MOD-sp2) 66.0 ml SI(MOD-sp2) 35.3 ml/m\S\2 Doppler Measurements and Calculations MV E max zenaida 86.3 cm/sec MV A max zenaida 52.8 cm/sec MV E/A 1.6 MV P1/2t max zenaida 103.1 cm/sec MV P1/2t 93.4 msec MVA(P1/2t) 2.4 cm\S\2 MV dec slope 323.4 cm/sec\S\2 MV dec time 0.30 sec Ao V2 max 121.7 cm/sec Ao max PG 5.9 mmHg Ao max PG (full) 1.7 mmHg LV V1 max PG 4.2 mmHg LV V1 max 102.2 cm/sec PA V2 max 158.9 cm/sec PA max PG 10.1 mmHg TR max zenaida 262.1 cm/sec
--- NOTE | 2017-07-05 10:07 | Cardiology Follow-Up ---
Subjective General Date of Service: July 05, 2017. Chief Complaint: follow up syncope Pt evaluation today including: conversation w/ patient, physical exam History of Present Illness The patient is a 66 year old male seen in follow up. Patient feels well. Telemetry reveals stable sinus rhythm and sinus bradycardia with occasional PACs. Echo reveals normal left ventricular wall motion with mild tricuspid regurgitation mild pulmonary hypertension. No pericardial effusion. Allergies Coded Allergies: No Known Allergies (Unverified , 07/04/17) Social History Smoking Status: Never Smoker Hx Tobacco Use In Past Year?: No Hx Alcohol Use - Type And Amou: No Hx Substance Use - Type And Am: No Problem List Medical Problems: (1) Traumatic hematoma of right hand Status: Acute Physical Exam Vital Signs Last Vital Signs Documentation Date Time Temp Pulse Resp B/P (MAP) Pulse Ox O2 Delivery O2 Flow Rate FiO2 07/05/17 08:29 54 131/77 (95) 67 131/71 (91) 66 149/75 (99) 07/05/17 08:00 Room Air 07/05/17 07:55 36.4 18 95 Physical Exam Constitutional: Level of Distress: NAD ENMT: TMs normal Neck: supple Lungs: Auscultation: no wheezing, no rales/crackles, no rhonchi Cardiovascular: Heart Auscultation: RRR, no murmurs, no rubs Abdomen: Inspection & Palpation: soft, non-distended, no tenderness, guarding & rebound Extremities: no edema Neurologic: Gait & Station: pertinent finding (No focal deficits) Assessment and Plan Assessment and Plan Impression: 66-year-old male 1. Syncope, likely due to relative hypovolemia in the setting of recent chemotherapy, and the patient was preparing to leave [facility] in the relatively warm spring weather. His initial blood pressures were low in the 80 mmHg range and have improved and he is actually borderline hypotensive with most of his systolic readings in the 150 mmHg range. 2. Chronic stable sinus bradycardia with incomplete right bundle branch block 3. Chronic coronary heart disease, status post CABG for multivessel CAD fall, 2017 4. Cerebrovascular disease, 50% chronic carotid stenosis past stroke 5. Multiple myeloma, mild anemia , thrombocytopenia with recent treatment. Plan: The patient's DVT and pulmonary embolism workup has been negative. He has had a mild elevation in his troponin which is mild and blunted, and I do not think this is artist representative of an acute coronary syndrome. His resting echo reveals no new wall motion abnormalities and he has no symptoms suggestive of angina. Telemetry has been negative for arrhythmia thus far the exception of his chronic stable sinus bradycardia. He has a chronic incomplete right bundle branch block and has been on low-dose metoprolol 12.5 mg twice daily since his bypass surgery due to his relatively low baseline resting heart rate At this time, I think that his syncopal event likely took place in the setting of hypovolemia with additional factors of recently starting chemotherapy. His neurovascular workup is stable compared to previous, and he should continue his current dose of Zetia and rosuvastatin. We will plan on outpatient vascular surgery follow-up for his chronic carotid disease as outpatient, but I do not think this is the cause of his event that prompted hospitalization. Would continue low-dose metoprolol. He is stable for discharge from a cardiac perspective on his same prior to hospital metoprolol dose. 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 I placed the order in his outpatient [facility] record. Laboratory Results Last 24 Hours Test 07/04/17 11:30 07/04/17 15:24 07/04/17 21:38 07/05/17 05:49 Urine Color YELLOW Urine Appearance CLEAR Urine pH 6.0 Urine Specific [place] 1.015 Urine Protein NEG Urine Glucose (UA) NEG Urine Ketones NEG Urine Occult Blood NEG Urine Nitrite NEG Urine Bilirubin NEG Urine Urobilinogen NEG Urine Leukocyte Esterase NEG Urine WBC (Auto) 0 /hpf Urine RBC (Auto) 0-4 /hpf Urine Hyaline Casts (Auto) 1-5 /lpf Urine Epithelial Cells (Auto) 5-10 /lpf Urine Bacteria (Auto) NEG Troponin I 0.050 ng/ml 0.050 ng/ml White Blood Count 3.63 K/uL Red Blood Count 2.74 M/uL Hemoglobin 8.4 g/dL Hematocrit 24.7 % Mean Corpuscular Volume 90.1 fL Mean Corpuscular Hemoglobin 30.7 pg Mean Corpuscular Hemoglobin Concent 34.0 g/dl RDW Standard Deviation 54.7 fL RDW Coefficient of Variation 16.6 % Platelet Count 102 K/uL Mean Platelet Volume 12.1 fL Platelet Estimate DECREASED Sodium Level 141 mmol/L Potassium Level 4.1 mmol/L Chloride Level 110 mmol/L Carbon Dioxide Level 25 mmol/L Anion Gap 6.0 mmol/L Blood Urea Nitrogen 15 mg/dl Creatinine 0.91 mg/dl Est Creatinine Clear Calc Drug Dose 74.7 ml/min Estimated GFR () 101.4 Estimated GFR (Non- 87.5 BUN/Creatinine Ratio 16.0 Random Glucose 102 mg/dl Calcium Level 7.8 mg/dl
--- NOTE | 2017-07-05 11:02 | Surgery Consultation ---
Consultation Date of Service July 05, 2017. Chief Complaint carotid/vertebral art stenosis History of Present Illness The patient is a 66 year old male with multiple medical problems, admitted after a single syncopal episode at work, seen in consultation today for carotid/ vertebral artery stenosis noted on CTA. Pt admits hx of TIA a number of years ago, but does not remember what his sx were at the time. 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 States it was very hot at the time. Unsure how long he was unconscious, but does not believe it was more than 1-2 minutes. Denies prior similar events. States feeling lightheaded was very unusual for him. Denies ARGUELLES , chest pain, palpitations, vertigo, SOB, N/V prior to event. Denies fever, recent illness abd pain, rest pain, claudication, other complaints. CTA imaging of neck demonstrates ~50% stenosis of R ICA, less then 50% of L ICA , and moderate stenosis of Bl vertebral art. Vitals Vital Signs Past 12 Hours Date Time Temp Pulse Resp B/P (MAP) Pulse Ox O2 Delivery O2 Flow Rate FiO2 07/05/17 08:29 54 131/77 (95) 67 131/71 (91) 66 149/75 (99) 07/05/17 08:00 Room Air 07/05/17 07:55 36.4 52 18 134/84 (101) 95 Room Air 07/05/17 07:45 77 157/90 (112) 07/05/17 04:00 Room Air 07/05/17 03:48 36.6 63 18 156/92 (113) 97 Room Air 07/05/17 00:00 Room Air 07/04/17 23:07 36.7 64 18 151/83 (105) 97 Room Air Allergies Coded Allergies: No Known Allergies (Unverified , 07/04/17) Home Medications Scheduled Acyclovir (Zovirax), 400 MG PO BID Ascorbic Acid (Vitamin C), 1,000 MG PO DAILY Aspirin (Aspirin Ec), 81 MG PO DAILY Bortezomib (Velcade), 1 DOSE INJ UD Yniecpjzi-Wykpcoicqvx-Qeuyjdj (Osteo Bi-Flex/5-Loxin Adv), 1 TAB PO DAILY Calcium Carbonate (Caltrate 600), 2 TAB PO DAILY Cyanocobalamin (Vitamin B12 100 Mcg), 100 MCG PO DAILY Dexamethasone (Decadron), 10 TABS PO UD Ezetimibe (Zetia), 10 MG PO DAILY Finasteride (Proscar), 1 TAB PO DAILY Lactobacillus Acidophilus (Floranex), 1 TAB PO TIDM Lenalidomide (Revlimid), 15 MG PO UD Metoprolol Tartrate (Lopressor) (Lopressor), 12.5 MG PO BID Multiple Vitamins W/ Minerals (Vision Formula/Lutein), 1 TAB PO DAILY Mupirocin 2% (Bactroban 2%), 1 APPLN EXT UD Potassium Chloride (Micro-K Ext Rel), 10 MEQ PO DAILY Rosuvastatin Calcium (Crestor), 40 MG PO DAILY Tamsulosin Hcl (Flomax), 1 CAP PO DAILY Vitamin E (E-400), 1 CAP PO DAILY Zinc Gluconate (Zinc), 1 TAB PO DAILY Scheduled PRN Clobetasol Propionate (Clobetasol Propionate), 1 APPLN EXT DAILY PRN for Psoriasis Ondansetron Hcl (Zofran), 4 MG PO Q12 PRN for Nausea Problem List Medical Problems: (1) Benign prostatic hyperplasia (2) CAD (coronary artery disease) (3) Carotid artery stenosis (4) Dyslipidemia (5) Hypertension (6) Ischemic stroke (7) Multiple myeloma (8) Nonruptured cerebral aneurysm (9) RBBB Surgical Problems: (1) H/O rotator cuff surgery (2) History of total right hip replacement (3) S/P CABG x 4 Surgical / Medical History Hx Cardiac Surgery: Yes (CABG x 4 on 01/03/2017) Hx Abdominal Surgery: No Hx Cancer Surgery: No Hx Thoracic Surgery: No Hx Orthopedic: Yes (Hip Surgery (THR) Right; R shoulder Sx (sonya); Back Sx ) Hx Urinary Tract Surgery: No HX Other Surgery: No Past Medical/Surgical History: Blood Dyscrasias, Chronic Steroid Use, High Cholesterol, Hypertension Family History FH: CAD (coronary artery disease) FATHER (Fatal [place] in his 40s) Social History Smoking Status: Never Smoker Hx Tobacco Use In Past Year?: No Hx Alcohol Use - Type & Amnt: No Hx Substance Use -Type & Amnt: No Review of Systems Constitutional: No chills, No fever, No malaise Skin: No change in color Eyes: No visual changes ENMT: No sore throat Respiratory: No cough, No MARTE, No hemoptysis, No short of breath Cardiovascular: + syncope, No chest pain, No palpitations, No edema, No intermittent claudication Gastrointestinal: No abdominal pain, No nausea, No vomiting Neurologic: No weakness, No headache, No lethargy, No numbness, No tingling Physical Exam Constitutional: General Apperance: heathly-appearing, well-nourished, well-developed Level of Distress: NAD Psychiatric: Mental Status: active & alert, normal mood, normal affect Orientation: oriented except where noted, to time, to place, to person Memory: recent memory normal, remote memory normal Head: normocephalic, atraumatic Eyes: EOM: EOMI ENMT: normal ENT inspection, hearing grossly normal Neck: supple, trachea midline Lungs: Respiratory effort: no dyspnea Auscultation: no wheezing, no rales/crackles, no rhonchi, decreased breath sounds Cardiovascular: Apical Impulse: not displaced Heart Auscultation: RRR, no rubs, no gallops Peripheral Pulses: Pulses: full and equal, in all extremities except if noted Bruits: none appreciated Carotid Pulse: normal on the left, normal on the right Brachial Pulses: normal on the left, normal on the right Radial Pulse: normal on the left, normal on the right Femoral Pulse: normal on the left, normal on the right Posterior Tibialis Pulse: decreased on the left, decreased on the right Dorsalis Pedis Pulse: decreased on the left, decreased on the right Abdomen: Bowel Sounds: normal Inspection & Palpation: soft, non-distended, no tenderness, guarding & rebound Musculoskeletal: normal strength (5/5 throughout), normal tone Extremities: Upper Right: no cyanosis, no edema, no varicosities Upper Left: no cyanosis, no edema, no varicosities Lower Right: no cyanosis, no edema, no varicosities, no palpable cord Lower Left: no cyanosis, no edema, no varicosities Neurologic: Cranial Nerves: grossly intact Sensation: grossly intact Assessment and Plan ASSESSMENT and PLAN: Carotid and vertebral art stenosis Syncopal event Pt discussed with and imaging reviewed by Dr Mcclain. Carotid/vertebral art stenosis unlikely to be related to syncopal event. No vascular surgical intervention at this time. Will see in office n 6 months with carotid US. Pt agreeable. Please call if needed.
[2017-07-05 11:26] VITALS: BP 135/70; PULSE 60; TEMP 36.7; O2SAT 97
--- NOTE | 2017-07-05 11:42 | Progress Note ---
Internal Med Progress Note Date of Service: July 05, 2017. Provider Documentation: SUBJECTIVE: Patient was seen and examined. Patient reports he has been able to ambulate without symptoms. Denies lightheadedness, chest pain, or shortness of breath OBJECTIVE: Exam: General- no distress Eyes- EOMI Neck-no JVD Lungs- CTABL Heart- regular rate Abdomen- soft, nontender, + bowel sounds Extremities- no edema Neuro- awake and alert ASSESSMENT & PLAN: Hospital Course and Discharge Plans 66-year-old male who was admitted to the hospital after syncopal event on . Patient was found to have orthostatic hypotension. This improved with IV fluids. Acute kidney injury also resolved with IV fluids. The patient's admission EKG revealed a sinus bradycardia with a heart rate of 55 bpm. He has a right bundle branch block which is old. The patient's first cardiac troponin or borderline elevated as 0.073, and subsequent troponins 0.05 and 0.05. These troponins levels were not considered to be clinically significant by cardiology service. Patient did not have chest pain or shortness of breath. Patient did have coronary artery bypass surgery in the past and it is unclear whether there was demand ischemia involved in these mildly elevated troponins. Patient had negative study for pulmonary embolism or deep vein thrombosis of lower extremities Patient was also seen by neurology service for the syncope and also by vascular surgery service primarily to determine whether Carotid and vertebral artery stenosis found on imaging was related to syncopal event. Head CTA 1. No significant stenosis or occlusion within the [place] of Zamud[place]. 2. 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 3. No acute intracranial abnormality. 4. Small old right parietal infarct. CT angiography 1. Prominent atheromatous plaquing of the right carotid bulb results in 50% luminal narrowing at the origin of the right internal carotid artery. 2. No hemodynamically significant stenosis about the left carotid vasculature. 3. Calcified plaque at the origin of the bilateral vertebral arteries resulting in 70% stenosis on the left and at least 50% luminal narrowing on the right. 4. No aneurysm, dissection or proximal branch occlusion identified As per [facility] vascular surgery service: "Carotid/vertebral art stenosis unlikely to be related to syncopal event. No vascular surgical intervention at this time. Will see in office in 6 months with carotid US" Patient also has admission labs of mild anemia with a hemoglobin of 9.8. Patient was seen by hematology/oncology service in the hospital because of history of multiple myeloma on first round of outpatient chemotherapy. Patient should follow up with hematology/oncology doctors after hospital discharge Discharge Instructions Patient was seen in the hospital primarily for syncope evaluation. patient should followup with primary care doctor, hematology.oncology doctor, and later with [facility] vascular surgery doctor Upcoming appointments on Jose Coleman 07/08/2017 12:30 PM Lab [facility] 07/08/2017 1:45 PM Chair 5 Hem Onc [facility] 4[facility]15 PM Pharmacy Medical Transcriber [facility] [place] 07/12/2017 1:20 PM Tutu Barber MD [facility] 07/15/2017 12:45 PM Lab [facility] 07/15/2017 1:30 PM Mary Colmenares PA-C Hematology/Oncology [facility] 07/15/2017 2:00 PM Chair 8 Hem Onc [facility] Vital Signs: Date Time Temp Pulse Resp B/P (MAP) Pulse Ox O2 Delivery O2 Flow Rate FiO2 07/05/17 12:00 Room Air 07/05/17 11:52 36.7 60 18 97 Room Air 07/05/17 11:26 36.7 60 18 135/70 (91) 97 Room Air 07/05/17 08:29 54 131/77 (95) 67 131/71 (91) 66 149/75 (99) 07/05/17 08:00 Room Air 07/05/17 07:55 36.4 52 18 134/84 (101) 95 Room Air 07/05/17 07:45 77 157/90 (112) 07/05/17 04:00 Room Air 07/05/17 03:48 36.6 63 18 156/92 (113) 97 Room Air 07/05/17 00:00 Room Air 07/04/17 23:07 36.7 64 18 151/83 (105) 97 Room Air 07/04/17 21:15 Room Air 07/04/17 19:50 36.7 79 18 163/80 (107) 95 Room Air 07/04/17 17:52 73 152/78 (102) 07/04/17 17:51 73 132/76 (94) 07/04/17 17:51 65 149/83 (105) 07/04/17 16:00 97 Room Air 07/04/17 15:16 36.6 60 18 154/84 (107) 97 07/04/17 14:20 36.7 58 18 143/82 (102) 97 Room Air 07/04/17 13:14 68 18 108/64 94 07/04/17 12:48 96 Room Air 07/04/17 12:36 72 07/04/17 12:30 59 20 129/77 96 Room Air Lab Results: Results Past 24 Hours Test 07/04/17 15:24 07/04/17 21:38 07/05/17 05:49 Range/Units Troponin I 0.050 0.050 0-0.045 ng/ml White Blood Count 3.63 4.8-10.8 K/uL Red Blood Count 2.74 4.7-6.1 M/uL Hemoglobin 8.4 14.0-18.0 g/dL Hematocrit 24.7 42-52 % Mean Corpuscular Volume 90.1 80-100 fL Mean Corpuscular Hemoglobin 30.7 25-34 pg Mean Corpuscular Hemoglobin Concent 34.0 32-36 g/dl RDW Standard Deviation 54.7 36.4-46.3 fL RDW Coefficient of Variation 16.6 11.5-14.5 % Platelet Count 102 130-400 K/uL Mean Platelet Volume 12.1 7.4-10.4 fL Platelet Estimate DECREASED Sodium Level 141 136-145 mmol/L Potassium Level 4.1 3.5-5.1 mmol/L Chloride Level 110 98-107 mmol/L Carbon Dioxide Level 25 21-32 mmol/L Anion Gap 6.0 3-11 mmol/L Blood Urea Nitrogen 15 7-18 mg/dl Creatinine 0.91 0.60-1.40 mg/dl Est Creatinine Clear Calc Drug Dose 74.7 ml/min Estimated GFR () 101.4 Estimated GFR (Non- 87.5 BUN/Creatinine Ratio 16.0 10-20 Random Glucose 102 70-99 mg/dl Calcium Level 7.8 8.5-10.1 mg/dl
[2017-07-05 11:52] VITALS: BP 135/70; PULSE 60; TEMP 36.7; O2SAT 97
--- NOTE | 2017-07-05 12:15 | Discharge Instructions ---
Discharge Instructions Date of Service July 05, 2017. Admission Reason for Admission: Syncope Discharge Discharge Diagnosis / Problem: syncope, orthostatic hypotension, YANG, anemia, multiple myeloma Discharge Goals Goal(s): Improve function Activity Recommendations Activity Limitations: per Instructions/Follow-up section Shower/Bathe: no limitations . Instructions / Follow-Up Instructions / Follow-Up Hospital Course and Discharge Plans 66-year-old male who was admitted to the hospital after syncopal event on . Patient was found to have orthostatic hypotension. This improved with IV fluids. Acute kidney injury also resolved with IV fluids. The patient's admission EKG revealed a sinus bradycardia with a heart rate of 55 bpm. He has a right bundle branch block which is old. The patient's first cardiac troponin or borderline elevated as 0.073, and subsequent troponins 0.05 and 0.05. These troponins levels were not considered to be clinically significant by cardiology service. Patient did not have chest pain or shortness of breath. Patient did have coronary artery bypass surgery in the past and it is unclear whether there was demand ischemia involved in these mildly elevated troponins. Patient had negative study for pulmonary embolism or deep vein thrombosis of lower extremities Patient was also seen by neurology service for the syncope and also by vascular surgery service primarily to determine whether Carotid and vertebral artery stenosis found on imaging was related to syncopal event. Head CTA 1. No significant stenosis or occlusion within the [place] of [place]. 2. 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 3. No acute intracranial abnormality. 4. Small old right parietal infarct. CT angiography 1. Prominent atheromatous plaquing of the right carotid bulb results in 50% luminal narrowing at the origin of the right internal carotid artery. 2. No hemodynamically significant stenosis about the left carotid vasculature. 3. Calcified plaque at the origin of the bilateral vertebral arteries resulting in 70% stenosis on the left and at least 50% luminal narrowing on the right. 4. No aneurysm, dissection or proximal branch occlusion identified As per [facility] vascular surgery service: "Carotid/vertebral art stenosis unlikely to be related to syncopal event. No vascular surgical intervention at this time. Will see in office in 6 months with carotid US" Patient also has admission labs of mild anemia with a hemoglobin of 9.8. Patient was seen by hematology/oncology service in the hospital because of history of multiple myeloma on first round of outpatient chemotherapy. Patient should follow up with hematology/oncology doctors after hospital discharge Discharge Instructions Patient was seen in the hospital primarily for syncope evaluation. patient should followup with primary care doctor, hematology.oncology doctor, and later with [facility] Jillian vascular surgery doctor Upcoming appointments on Jose Coleman 07/08/2017 12:30 PM Lab [facility] Laboratory [facility] 07/08/2017 1:45 PM Chair 5 Hem Onc [facility] 4[facility]15 [facility]12/2017 1:20 PM Tutu Barber MD [facility] 07/15/2017 12:45 PM Lab [facility] 07/15/2017 1:30 PM Mary Colmenares PA-C Hematology/Oncology [facility] 07/15/2017 2:00 PM Chair 8 Hem Onc [facility] Hematology/Oncology Treatment, [place] Current Hospital Diet Patient's current hospital diet: Regular Diet Discharge Diet Recommended Diet: Regular Diet Pending Studies Studies pending at discharge: no Laboratory Results 07/05/17 05:49 07/05/17 05:49 Test 07/04/17 09:05 07/04/17 09:08 07/04/17 11:30 07/04/17 21:38 Bedside Glucose 132 mg/dl (70-99) Immature Granulocyte % (Auto) 0.1 % White Blood Count 6.89 K/uL (4.8-10.8) Red Blood Count 3.25 M/uL (4.7-6.1) Hemoglobin 9.8 g/dL (14.0-18.0) Hematocrit 29.5 % (42-52) Mean Corpuscular Volume 90.8 fL (80-100) Mean Corpuscular Hemoglobin 30.2 pg (25-34) Mean Corpuscular Hemoglobin Concent 33.2 g/dl (32-36) Platelet Count 128 K/uL (130-400) Mean Platelet Volume 11.6 fL (7.4-10.4) Neutrophils (%) (Auto) 59.3 % Lymphocytes (%) (Auto) 24.1 % Monocytes (%) (Auto) 13.8 % Eosinophils (%) (Auto) 2.3 % Basophils (%) (Auto) 0.4 % Neutrophils # (Auto) 4.08 K/uL (1.4-6.5) Lymphocytes # (Auto) 1.66 K/uL (1.2-3.4) Monocytes # (Auto) 0.95 K/uL (0.11-0.59) Eosinophils # (Auto) 0.16 K/uL (0-0.5) Basophils # (Auto) 0.03 K/uL (0-0.2) Immature Granulocyte # (Auto) 0.01 K/uL (0.00-0.02) Prothrombin Time 11.1 SECONDS (9.0-12.0) Prothromb Time International Ratio 1.1 (0.9-1.1) Activated Partial Thromboplast Time 19.8 SECONDS (21.0-31.0) Partial Thromboplastin Ratio 0.8 Magnesium Level 2.0 mg/dl (1.8-2.4) Total Bilirubin 0.3 mg/dl (0.2-1) Direct Bilirubin < 0.1 mg/dl (0-0.2) Aspartate Amino Transf (AST/SGOT) 31 U/L (15-37) Alanine Aminotransferase (ALT/SGPT) 43 U/L (12-78) Alkaline Phosphatase 57 U/L (45-117) Total Creatine Kinase 77 U/L (39-308) Creatine Kinase MB 1.8 ng/ml (0.5-3.6) Creatine Kinase MB Ratio 2.3 (0-3.0) Total Protein 8.0 gm/dl (6.4-8.2) Albumin 3.5 gm/dl (3.4-5.0) Lipase 212 U/L (73-393) Thyroid Stimulating Hormone (TSH) 2.000 uIu/ml (0.300-4.500) Urine Color YELLOW Urine Appearance CLEAR (CLEAR) Urine pH 6.0 (4.5-7.5) Urine Specific [place] 1.015 (1.000-1.030) Urine Protein NEG (NEG) Urine Glucose (UA) NEG (NEG) Urine Ketones NEG (NEG) Urine Occult Blood NEG (NEG) Urine Nitrite NEG (NEG) Urine Bilirubin NEG (NEG) Urine Urobilinogen NEG (NEG) Urine Leukocyte Esterase NEG (NEG) Urine WBC (Auto) 0 /hpf (0-5) Urine RBC (Auto) 0-4 /hpf (0-4) Urine Hyaline Casts (Auto) 1-5 /lpf (0-5) Urine Epithelial Cells (Auto) 5-10 /lpf (0-5) Urine Bacteria (Auto) NEG (NEG) Troponin I 0.050 ng/ml (0-0.045) Test 07/05/17 05:49 Red Blood Count 2.74 M/uL (4.7-6.1) Mean Corpuscular Volume 90.1 fL (80-100) Mean Corpuscular Hemoglobin 30.7 pg (25-34) Mean Corpuscular Hemoglobin Concent 34.0 g/dl (32-36) RDW Standard Deviation 54.7 fL (36.4-46.3) RDW Coefficient of Variation 16.6 % (11.5-14.5) Mean Platelet Volume 12.1 fL (7.4-10.4) Platelet Estimate DECREASED Anion Gap 6.0 mmol/L (3-11) Est Creatinine Clear Calc Drug Dose 74.7 ml/min Estimated GFR () 101.4 Estimated GFR (Non- 87.5 BUN/Creatinine Ratio 16.0 (10-20) Calcium Level 7.8 mg/dl (8.5-10.1) Medical Emergencies . Who to Call and When: Medical Emergencies: If at any time you feel your situation is an emergency, please call 911 immediately. . Non-Emergent Contact Non-Emergency issues call your: Primary Care Provider, Oncologist, Specialist ( vascular) Call Non-Emergent contact if: you have any medication questions . . "Provider Documentation" section prepared by Leo Wheatley. .
--- NOTE | 2017-07-05 12:17 | Discharge Summary ---
Discharge Summary Date of Service July 05, 2017. Discharge Summary Admission Date: July 04, 2017 at 12:30 Discharge Date: July 05, 2017 Discharge Disposition: Home Principal Diagnosis: syncope, orthostatic hypotension, YANG, anemia, multiple myeloma (on chemotherapy , not in remission), vertebra artery stenosis (bilateral) Secondary Diagnoses/Problems: elevated troponins, history of CABG Medication Reconciliation Continued Medications: Acyclovir (Zovirax) 200 Mg Cap 400 MG PO BID, CAP Ascorbic Acid (Vitamin C) 1,000 Mg Tab 1000 MG PO DAILY Aspirin (Aspirin Ec) 81 Mg Tab 81 MG PO DAILY Bortezomib (Velcade) 1 Mg/Ml Inj 1 DOSE INJ UD Xiyewahfq-Mhfckpcirra-Tgpdyiz (Osteo Bi-Flex/5-Loxin Adv) 1 Tab Tab 1 TAB PO DAILY Calcium Carbonate (Caltrate 600) 1,500 Mg Tab 2 TAB PO DAILY Clobetasol Propionate (Clobetasol Propionate) 0.05 % Sha 1 APPLN EXT DAILY PRN for Psoriasis APPLY A THIN FILM TO DRY SCALP ONCE DAILY, LEAVE IN PLACE FOR 15 MINUTES THEN ADD WATER, LATHER AND RINSE THROUGHLY. Cyanocobalamin (Vitamin B12 100 Mcg) 100 Mcg Tab 100 MCG PO DAILY, TAB Dexamethasone (Decadron) 4 Mg Tab 10 TABS PO UD, TAB on chemo days Ezetimibe (Zetia) 10 Mg Tab 10 MG PO DAILY, TAB Finasteride (Proscar) 5 Mg Tab 1 TAB PO DAILY for 90 Days, #90 TAB 1 Refill Lactobacillus Acidophilus (Floranex) 1 Tab Tab 1 TAB PO TIDM for 10 Days, TAB Lenalidomide (Revlimid) 10 Mg Cap 15 MG PO UD take 15mg po on days 1-14, then 7 days off Metoprolol Tartrate (Lopressor) (Lopressor) 25 Mg Tab 12.5 MG PO BID, TAB Multiple Vitamins W/ Minerals (Vision Formula/Lutein) 1 Tab Tab 1 TAB PO DAILY Mupirocin 2% (Bactroban 2%) 30 Gm Cr 1 APPLN EXT UD, TUBE Ondansetron Hcl (Zofran) 4 Mg Tab 4 MG PO Q12 PRN for Nausea, TAB Potassium Chloride (Micro-K Ext Rel) 10 Meq Capcr 10 MEQ PO DAILY, CAP Rosuvastatin Calcium (Crestor) 40 Mg Tab 40 MG PO DAILY, TAB Tamsulosin Hcl (Flomax) 0.4 Mg Cap 1 CAP PO DAILY for 30 Days, #30 CAP 5 Refills Vitamin E (E-400) 400 Unit Cap 1 CAP PO DAILY Zinc Gluconate (Zinc) 50 Mg Tab 1 TAB PO DAILY Admission Information HPI (per Admitting provider): 66-year-old male who presents the ED after syncopal event today. 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 He reports that he was standing along the road, waiting for materials, when he started to feel lightheaded. He reports that the next thing he remembers is being put in a truck by his coworkers. Patient was recently diagnosed with multiple myeloma and underwent his second Velcade treatment on 07/01. He is also on oral Revlimid. He reports he has been feeling well. He feels as though he is tolerating his chemotherapy well. He reports a good appetite. Denies nausea, vomiting, abdominal pain, diarrhea. No recent illnesses, fevers, or chills. He has history of CAD, S/P CABG 4 2017. He denies any preceding shortness of breath or chest pain with the syncopal event today. No loss of bowel or bladder function. No reported postictal state. He denies numbness, tingling, unilateral weakness, slurred speech, facial droop. Denies any exertional chest pain or shortness of breath. No urinary symptoms. In the ED, patient was mildly hypotensive with BP of 98/ 60 which dropped to 88/52 with standing. This improved with IVF. Patient reports marked improvement in his symptoms. Labs show a mildly elevated troponin at 0.073. EKG does not show any acute ST changes. Physical Exam (per Admitting): General Appearance: WD/WN, no apparent distress Head: normocephalic, atraumatic Eyes: normal inspection, PERRL, EOMI, sclerae normal ENT: hearing grossly normal, + pertinent finding (Mucous membranes moist) Neck: supple, no JVD, trachea midline Respiratory/Chest: lungs clear, normal breath sounds, no respiratory distress Cardiovascular: regular rate, rhythm, no edema, normal peripheral pulses Abdomen/GI: normal bowel sounds, non tender, soft, no organomegaly Extremities/Musculoskelatal: normal inspection, no calf tenderness, normal capillary refill Neurologic/Psych: no motor/sensory deficits, alert, normal mood/affect, oriented x 3 Skin: normal color, warm/dry Hospital Course Hospital Course and Discharge Plans 66-year-old male who was admitted to the hospital after syncopal event on . Patient was found to have orthostatic hypotension. This improved with IV fluids. Acute kidney injury also resolved with IV fluids. The patient's admission EKG revealed a sinus bradycardia with a heart rate of 55 bpm. He has a right bundle branch block which is old. The patient's first cardiac troponin or borderline elevated as 0.073, and subsequent troponins 0.05 and 0.05. These troponins levels were not considered to be clinically significant by cardiology service. Patient did not have chest pain or shortness of breath. Patient did have coronary artery bypass surgery in the past and it is unclear whether there was demand ischemia involved in these mildly elevated troponins. Patient had negative study for pulmonary embolism or deep vein thrombosis of lower extremities Patient was also seen by neurology service for the syncope and also by vascular surgery service primarily to determine whether Carotid and vertebral artery stenosis found on imaging was related to syncopal event. Head CTA 1. No significant stenosis or occlusion within the [place] of [place]. 2. 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 3. No acute intracranial abnormality. 4. Small old right parietal infarct. CT angiography 1. Prominent atheromatous plaquing of the right carotid bulb results in 50% luminal narrowing at the origin of the right internal carotid artery. 2. No hemodynamically significant stenosis about the left carotid vasculature. 3. Calcified plaque at the origin of the bilateral vertebral arteries resulting in 70% stenosis on the left and at least 50% luminal narrowing on the right. 4. No aneurysm, dissection or proximal branch occlusion identified As per [facility] vascular surgery service: "Carotid/vertebral art stenosis unlikely to be related to syncopal event. No vascular surgical intervention at this time. Will see in office in 6 months with carotid US" Patient also has admission labs of mild anemia with a hemoglobin of 9.8. Patient was seen by hematology/oncology service in the hospital because of history of multiple myeloma on first round of outpatient chemotherapy. Patient should follow up with hematology/oncology doctors after hospital discharge Discharge Instructions Patient was seen in the hospital primarily for syncope evaluation. patient should followup with primary care doctor, hematology.oncology doctor, and later with [facility] vascular surgery doctor Upcoming appointments on [employer] 07/08/2017 12:30 PM Lab [facility] Laboratory [facility] 07/08/2017 1:45 PM Chair 5 Hem Onc [facility] 4:15 PM [facility]acy [facility] [place] Marcelino Harmon 07/12/2017 1:20 PM Tutu Barber MD [facility] 07/15/2017 12:45 PM Lab [facility] 07/15/2017 1:30 PM Mary Colmenares PA-C Hematology/Oncology [facility] 07/15/2017 2:00 PM Chair 8 Hem Onc [facility] Hematology/Oncology Treatment, [place] Total time spent on discharge = 40 minutes This includes examination of the patient, discharge planning, medication reconciliation, and communication with other providers. Discharge Instructions see above
[2017-07-05] MEDS ORDERED: ACYCLOVIR 200 MG CAP PO SCH (18:15)
--- NOTE | 2017-07-05 19:11 | ORTHOPEDIC CONSULTATION ---
DATE OF CONSULTATION: 07/05/2017 HISTORY OF PRESENT ILLNESS: A 66-year-old male seen at bedside due to pain on his right hallux. Both him and his noted he has had pain on and off for the past month, previously started antibiotic and the pain is resolved. The patient was admitted to the hospital due to a syncopal episode and is being discharged home today. MEDICATIONS: Acyclovir, ascorbic acid, aspirin, calcium carbonate, dexamethasone, finasteride, Revlimid, multivitamin, Bactroban, Zofran, Crestor, Flomax, zinc, vitamin E, chemotherapy for multiple myeloma. PAST MEDICAL HISTORY: Benign prostatic hyperplasia, coronary artery disease, carotid artery stenosis, dyslipidemia, hypertension, ischemic stroke, multiple myeloma, cerebral aneurysm nonruptured, post-surgical history of rotator cuff surgery, total right hip replacement, CABG x4. ALLERGIES: No known drug allergies. 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 PHYSICAL EXAMINATION: LOWER EXTREMITY: Temperature 36.7, pulse 60, respiratory rate 18, blood pressure 135/70, pulse ox 97 on room air. DP 2/4, PT 2/4. Mild swelling noted in medial and lateral borders, right hallux. Derm incurvation bilateral borders, right hallux with pain on dorsal pressure of the nail, minimal redness noted at distal aspect of the hallux surrounding the nail. No streaking, no active drainage, no purulence. Pain on dorsal pressure of the nail. NEUROLOGIC: Epicritic sensation grossly intact. MUSCULOSKELETAL: Pain on palpation of the right hallux. IMPRESSION: 1. Paronychia, bilateral borders, right hallux nail. 2. Mild cellulitis due to the nail deformity. TREATMENT RECOMMENDATIONS: 1. Discussed with the patient more permanent treatment options consisting of a matricectomy, bilateral borders, right hallux. Defer culture as there is no active drainage at this time. 2. The patient will be seen for partial nail avulsion until matricectomy can be obtained. There is no equipment at bedside to do this. Discussed with the possibility of matricectomy being performed in an office setting for permanent relief. The patient is amenable to this. Will be seen in the office as followup for matricectomy upon discharge. MARY
[2017-07-05] MEDS ORDERED: ENOXAPARIN 40 MG/0.4 ML SYR SQ SCH (22:00)
== END 2017-07-05 13:33 | disposition home or self-care (01) | DRG 312 ==
LOC: C.EDA 09:03 → C.MED 12:30 → ENRESERV 12:43
PROVIDERS: ADMIT Hospitalist; ATTEND Hospitalist
DX: I95.1 Orthostatic hypotension (principal); N17.9 Acute kidney failure, unspecified; C90.00 Multiple myeloma not having achieved remission; R55 Syncope and collapse; Z79.82 Long term (current) use of aspirin; D64.9 Anemia, unspecified; I65.03 Occlusion and stenosis of bilateral vertebral arteries; Z95.1 Presence of aortocoronary bypass graft; D69.6 Thrombocytopenia, unspecified; E86.0 Dehydration

== ENCOUNTER 2023-04-28 15:42 | Inpatient (IN) ==
[2023-04-28] MEDS: SODIUM CHLORIDE 0.9% 1,000 ML IV SCH (17:28)
--- NOTE | 2023-04-28 17:34 | Emergency Department Note ---
Impression & Plan Acute UTI, Acute confusion ED Provider Note Diagnosis: UTI, confusion Disposition: Admission CHIEF COMPLAINT: Confusion HPI: Patient is a 72-year-old male presenting with worsening confusion. Patient's states that they were here on Tuesday for similar symptoms patient was found to be dehydrated improved with IV fluid administration. Patient reportedly has been having waves of confusion over the past 3 to 4 days time. Patient has not had any fevers. Patient's not had any runny nose cough nausea or vomiting. Patient's believes he has undiagnosed dementia. She states that an appointment to get him diagnosed with take up to a year and that that she recently made an appointment at [place] but the earliest for an assessment is October of this year. She states that the patient normally can tell his birthday his name but he does not know what month it is at baseline. Patient has no focal deficits on exam today. PAST MEDICAL HISTORY: See Below PAST SURGICAL HISTORY: See Below SOCIAL HISTORY: See Below HOME MEDICATIONS: See Below ALLERGIES: See Below VITALS: See Below PHYSICAL EXAMINATION: GENERAL: Well appearing, well nourished, NAD, non-toxic. EYE EXAM: Normal conjunctiva. OROPHARYNX: Moist mucus membranes. Grossly normal dentition. NECK: Supple, LUNGS: Clear to auscultation. Normal chest wall mechanics. HEART: NSR ABDOMEN: Abdomen soft, non-tender, normo-active bowel sounds, no masses, no rebound or guarding BACK: No CVA TTP. SKIN: No rashes and no bruising. UPPER EXTREMITIES: Upper extremities are grossly normal LOWER EXTREMITIES: Grossly normal, no edema. NEURO EXAM: Patient knows his name is alert, patient has no focal deficits 5 out of 5 muscle strength upper and lower extremities bilaterally, Intact sensation upper and lower extremities bilaterally PSYCH: Cooperative MEDICAL DECISION MAKING: Reviewed external documents: ER note from this week History obtained from: Patient, family at bedside ER Course: Patient is a 72-year-old male with presumed history of dementia presenting with worsening confusion this week and dehydration. Patient was seen earlier in the week and given IV fluids with slight improvement in symptoms. Patient's family member states that he has been having fluctuating episodes of confusion over the past couple days but worse today. Patient given IV fluids today and had blood work and imaging performed. Patient CT of the head does not show any intracranial hemorrhage. Patient does not have any significant electrolyte abnormalities. Patient found to have urinary tract infection was started on Rocephin. Patient's case mary lou with hospitalist service who accepts patient further treatment and evaluation Labs (independently interpreted) are significant for: UTI on urinalysis Imaging results (independently interpreted): Chest x-ray EKG interpretation (independently interpreted): Normal sinus rhythm no ST segment elevation or depression Medications given: Normal saline bolus, Rocephin Triage Nursing notes reviewed and agree them. Vital Signs: reviewed and remarkable for: no significant abnormalities Past Med/Surg History Medical History History of COVID-19 diagnosed 10/22/21 @ [facility]---fever, sore throat, slight cough, fatigue--no symptoms now Osteoarthritis BPH (benign prostatic hyperplasia) Stroke Mini /2013 -- residual mild short term memory Multiple myeloma Initially dx 2018 - s/p chemo- had been in remission until recently CAD (coronary artery disease) "S/P CABG 4 in 12/2016" RBBB Hypertension Dyslipidemia Carotid artery stenosis (Unknown) Carotid Doppler 11/13/2019 = right ICA 50-69% stenosis, left ICA <50% stenosis Nonruptured cerebral aneurysm (Unknown) "3.3 mm aneurysm extending off the ophthalmic segment of the right ICA Oct 2012 Per [facility]A 07/04/17- no change in 3.3 cm aneurysm in ophthalmic segment of right ICA Surgical History History of colonoscopy History of cardiac cath (~12/31/16) @ [facility]--no stents had CABG done History of loop recorder (~05/20/21) Meditronic placed @ [facility] History of vascular access device (~08/26/20) A Port in right jugular History of lumbar spinal fusion History of total right hip replacement H/O rotator cuff surgery S/P CABG x 4 ghs in [place] Family History Other Dementia Myocardial infarction No family history of adverse response to anesthesia Social History Smoking Status: Unknown if ever smoked Second Hand Exposure: No; Do You Dip or Chew Tobacco: No; Hx Alcohol Use: No Hx Substance Use: No Preferred Language: Japanese Communication Ability: Effective Supervisor Liquefaction Required: No Beliefs That Will Affect Care: None marital status: Current Living Situation: Alone current occupational status: unemployed Feels Safe at Home: Yes Assistive Devices: Walker, Wheelchair and Other Allergies Allergies Allergy/AdvReac Type Severity Reaction Status Date / Time No Known Allergies Allergy Verified 04/25/23 21:42 Home Meds Home Medications Medication Instructions Recorded Confirmed Lactobacillus acidoph-L.bulgaricus 1 tab PO TID 12/04/17 04/28/23 1 million cell tablet (Floranex) calcium carbonate 600 mg-vitamin 1 tab PO BID 12/04/17 04/28/23 D3 20 mcg (800 unit) tablet (Caltrate with Vitamin D3) clobetasol 0.05 % shampoo 1 applic topical DAILY PRN Skin 12/04/17 04/28/23 Irritation ezetimibe 10 mg tablet (Zetia) 10 mg PO QAM 12/04/17 04/28/23 finasteride 5 mg tablet (Proscar) 5 mg PO QAM 12/04/17 04/28/23 rosuvastatin 40 mg tablet (Crestor) 20 mg PO QAM 12/04/17 04/28/23 tamsulosin 0.4 mg capsule (Flomax) 0.4 mg PO QAM 12/04/17 04/28/23 vit A 300 mcg-C 200 mg-E 27 1 tab PO QAM 12/04/17 04/28/23 mg-lutein 2 mg and minerals tablet (Vision Formula (with lutein)) acyclovir 400 mg tablet 400 mg PO AMHS 07/26/21 04/28/23 diphenoxylate-atropine 2.5 1 tab PO QID PRN Diarrhea 04/19/22 04/28/23 mg-0.025 mg tablet ondansetron HCl 8 mg tablet 8 mg PO Q8 PRN Nausea 04/19/22 04/28/23 ascorbic acid (vitamin C) 500 mg 500 mg PO BID 07/30/22 04/28/23 tablet (Vitamin C) cholecalciferol (vitamin D3) 10 10 mcg PO QAM 07/30/22 04/28/23 mcg (400 unit) tablet (Vitamin D3) clopidogrel 75 mg tablet 75 mg PO QAM 07/30/22 04/28/23 dexamethasone 4 mg tablet 8 mg PO WK 07/30/22 04/28/23 glucosamine-chondroitin 250 mg-200 1 tab PO DAILY 07/30/22 04/28/23 mg tablet (Osteo Bi-Flex) vitamin E 268 mg (400 unit) capsule 400 mg PO DAILY 07/30/22 04/28/23 teclistamab-cqyv 90 mg/mL 90 mg subcut UD 11/04/22 04/28/23 subcutaneous solution (Tecvayli) ferrous fumarate 324 mg (106 mg 324 mg PO DAILY 01/21/23 04/28/23 iron) tablet loperamide 2 mg tablet 2 mg PO DIRECTED 01/21/23 04/28/23 prochlorperazine maleate 10 mg 10 mg PO Q6H PRN Nausea 01/21/23 04/28/23 tablet tramadol 50 mg tablet 50 mg PO Q6H PRN Pain, Severe 01/21/23 04/28/23 escitalopram oxalate 10 mg tablet 10 mg PO QAM 03/30/23 04/28/23 ursodiol 300 mg capsule 300 mg PO BID 03/30/23 04/28/23 cyanocobalamin (vitamin B-12) 1,000 mcg sublingual DAILY 04/28/23 04/28/23 1,000 mcg sublingual tablet pantoprazole 40 mg tablet,delayed 40 mg PO DAILY 04/28/23 04/28/23 release Previous Rx's Medication Instructions Recorded amlodipine 5 mg tablet (Norvasc) 5 mg PO QAM 30 days #30 tabs 04/02/23 lisinopril 10 mg tablet 10 mg PO QAM 30 days #30 tabs 04/02/23 Results & Data (ED) Vital Signs Vital Signs - 24 hr 04/28/23 15:47 04/28/23 15:54 04/28/23 16:14 Temperature 36.5 C Temperature Source Oral Pulse Rate 77 77 Pulse Rate [Apical] 74 Respiratory Rate 19 22 Respiratory Effort / Characteristics Respiratory Depth Respiratory Pattern Blood Pressure 107/62 Blood Pressure [Left Arm] 107/62 Blood Pressure Mean 77 Blood Pressure Mean [Left Arm] 77 Blood Pressure Position [Left Arm] Pulse Oximetry 99 97 Oxygen Delivery Method Room Air Room Air Sepsis Recent Fever Within 48 Hours No Sepsis New/Unexplained Change in Mental Status Yes Sepsis Action Taken by Nursing No Action Required 04/28/23 17:25 04/28/23 17:26 04/28/23 17:32 Temperature Temperature Source Pulse Rate Pulse Rate [Apical] 85 Respiratory Rate 18 Respiratory Effort / Characteristics Non-Labored Spontaneous Respiratory Depth Normal Respiratory Pattern Regular Blood Pressure Blood Pressure [Left Arm] 154/84 H Blood Pressure Mean Blood Pressure Mean [Left Arm] 107 Blood Pressure Position [Left Arm] Lying Pulse Oximetry 98 98 99 Oxygen Delivery Method Room Air Room Air Room Air Sepsis Recent Fever Within 48 Hours Sepsis New/Unexplained Change in Mental Status Sepsis Action Taken by Nursing 04/28/23 18:36 04/28/23 20:10 04/28/23 20:35 Temperature Temperature Source Pulse Rate 79 Pulse Rate [Apical] 83 80 Respiratory Rate 18 16 Respiratory Effort / Characteristics Non-Labored Spontaneous Non-Labored Spontaneous Respiratory Depth Normal Normal Respiratory Pattern Regular Regular Blood Pressure Blood Pressure [Left Arm] 162/90 H 157/84 H Blood Pressure Mean Blood Pressure Mean [Left Arm] 114 108 Blood Pressure Position [Left Arm] Lying Pulse Oximetry 98 97 Oxygen Delivery Method Room Air Room Air Sepsis Recent Fever Within 48 Hours Sepsis New/Unexplained Change in Mental Status Sepsis Action Taken by Nursing Laboratory Data 04/28/23 15:52 04/28/23 15:52 Lab Results 04/28/23 04/28/23 04/28/23 Range/Units 15:49 15:52 18:20 WBC 7.31 (4.8-10.8) K/ul RBC 2.50 L (4.70-6.10) M/uL Hgb 7.5 L (14.0-18.0) g/dl Hct 23.6 L (42.0-52.0) % MCV 94.4 (80.0-100.0) fL MCH 30.0 (25.0-34.0) pg MCHC 31.8 L (32.0-36.0) g/dL RDW Std Deviation 57.2 H (36.4-46.3) fL RDW Coeff of Kimber 16.6 H (11.5-14.5) % Plt Count 112 L (130-400) K/uL MPV 10.8 (9.4-12.4) fL Immature Gran % (Auto) 0.8 % Neut % (Auto) 81.4 % Lymph % (Auto) 7.8 % [place] % (Auto) 9.8 % Eos % (Auto) 0.1 % Baso % (Auto) 0.1 % Neut # (Auto) 5.94 (1.40-6.50) K/uL Lymph # (Auto) 0.57 L (1.20-3.40) K/uL [place] # (Auto) 0.72 H (0.11-0.59) K/uL Eos # (Auto) 0.01 (0.00-0.50) K/uL Baso # (Auto) 0.01 (0.00-0.20) K/uL Immature Gran # (Auto) 0.06 (0.01-0.20) K/uL Absolute Nucleated RBC 0.08 (0.00-0.12) K/uL Nucleated RBC % (auto) 1.1 % Tear Drop Cells 1+ Ovalocytes 1+ Rouleaux 1+ Sodium 138 (136-145) mmol/L Potassium 3.9 (3.5-5.1) mmol/L Chloride 104 (98-107) mmol/L Carbon Dioxide 19 L (21-32) mmol/L Anion Gap 15 H (3-11) BUN 19 (6-23) mg/dl Creatinine 1.45 H (0.6-1.4) mg/dl Est Cr Clr Drug Dosing 47.9 ml/min Est GFR ( Amer) 55.4 ml/min Est GFR (Non-Af Amer) 47.8 ml/min BUN/Creatinine Ratio 13.1 (10-20) Glucose 98 (70-99(Fasting)) mg/dl POC Glucose 113 H (70-99) mg/dl Calcium 8.0 L (8.6-10.3) mg/dl Magnesium 2.1 (1.7-2.4) mg/dl Total Bilirubin 0.4 (0.2-1.0) mg/dl AST 22 (13-39) U/L ALT 13 (7-52) U/L Alkaline Phosphatase 38 (34-104) U/L Lactate Dehydrogenase 130 (86-244) U/L Troponin I High Sens 11.4 (0-20) pg/ml Total Protein 9.0 H (6.0-8.3) gm/dl Albumin 3.2 L (3.4-5.0) gm/dl Globulin 5.8 H (2.5-4.0) gm/dl Albumin/Globulin Ratio 0.6 L (0.9-2) TSH 2.983 (0.300-4.500) uIu/ml Urine Color Yellow Urine Appearance Clear (Clear) Urine pH 6.5 (4.5-7.5) Ur Specific [place] 1.008 (1.000-1.030) Urine Protein Trace H (Negative) Urine Glucose (UA) Negative (Negative) Urine Ketones Negative (Negative) Urine Blood Trace H (Negative) Urine Nitrite Negative (Negative) Urine Bilirubin Negative (Negative) Urine Urobilinogen Negative (Negative) Ur Leukocyte Esterase Negative (Negative) Urine WBC (Auto) 10-30 H (0-5) /hpf Urine RBC (Auto) 0-4 (0-4) /hpf U Hyaline Cast (Auto) 1-5 (0-5) /lpf U Epithel Cells (Auto) >30 H (0-5) /lpf Urine Bacteria (Auto) 1+ H (Negative) Ur Renal Epithelial Cell Not Reportable Administered Medications Discontinued Medications Sodium Chloride (Nss) 1,000 mls @ 999 mls/hr IV .Q1H1M PRISCILLA Stop: 04/28/23 18:30 Last Infusion: 04/28/23 18:37 Dose: Infused Documented By: Admin: 04/28/23 17:28 Dose: 999 mls/hr Documented By: WILLARD Ceftriaxone Sodium 1,000 mg/ (Dextrose) 50 mls @ 100 mls/hr IV NOW STA; Protocol Stop: 04/28/23 20:15 Last Infusion: 04/28/23 21:10 Dose: Infused Documented By: Admin: 04/28/23 20:36 Dose: 100 mls/hr Documented By: WILLARD Imaging Data Radiologist's Impression: Chest X-Ray 04/28/23 17:25 SINGLE VIEW CHEST CLINICAL HISTORY: Generalized weakness. FINDINGS: An AP, portable, upright chest radiograph is compared to study dated 04/25/2023. A right internal jugular central venous infusion port is unchanged in position. The patient is status post midline sternotomy. The heart is enlarged noting atherosclerotic calcification of the thoracic. There is pulmonary vascular congestion. Scarring/atelectasis is noted at the lung bases. No airspace consolidation or large pleural effusion is identified. No pneumothorax is seen. The bony thorax is grossly intact. Arthritic change is seen in the shoulders. IMPRESSION: Cardiomegaly with evidence of congestive failure. ACT 112: Negative or not required by law. Electronically signed by: Anastacio Sanabria M.D. 04/28/2023 6:[address] 04/28/23 17:25 CT SCAN OF THE BRAIN WITHOUT IV CONTRAST CLINICAL HISTORY: Change in mental status. COMPARISON STUDY: CT of the brain dated 04/25/2023. TECHNIQUE: Unenhanced axial CT scan of the brain is performed from the vertex to the skull base. A dose lowering technique was utilized adhering to the principles of ALARA. CT DOSE: 547.75 mGy.cm FINDINGS: Brain parenchyma: Foci of right frontal and parietal encephalomalacia are unchanged and consistent with remote insults. There is age-related involutional change noting mild to moderate subcortical and periventricular microangiopathic disease. There is no hemorrhage, mass effect, or evidence of acute territorial ischemia by CT criteria. Cramer-white matter differentiation is preserved. No extra-axial fluid collection is seen. Ventricles, sulci, cisterns: Prominent secondary to involutional change. Intracranial vasculature: There is atherosclerotic calcification of the cavernous carotid and vertebral arteries. Calvarium: Unremarkable. Sinuses and mastoids: The visualized paranasal sinuses are clear. The mastoid air cells are well pneumatized. Orbits: The bony orbits are grossly intact. IMPRESSION: There is no hemorrhage, mass effect, or evidence of acute territorial ischemia by CT criteria. ACT 112: Negative or not required by law. Electronically signed by: Anastacio Sanabria M.D. 04/28/2023 5:55 PM Discharge Plan Visit Data Chief Complaint: Confusion Stated Complaint: [facility] ED Provider: Rory Hernandez Discharge Problem: Acute UTI, Acute confusion Forms Stand Alone Forms: My [facility] Prescriptions Prescriptions: No Action tamsulosin [Flomax] 0.4 mg Capsule 0.4 mg PO QAM finasteride [Proscar] 5 mg Tablet 5 mg PO QAM ezetimibe [Zetia] 10 mg Tablet 10 mg PO QAM rosuvastatin [Crestor] 40 mg tablet 20 mg PO QAM Rx Instructions: ordered 40mg but pt taking 20mg clobetasol 0.05 % Shampoo 1 applic TOPICAL DAILY PRN (Reason: Skin Irritation) Vision Formula (with lutein) 1,000 unit-200 mg-60 unit-2 mg Tablet 1 tab PO QAM Lactobacillus acidoph-L.bulgar [Floranex] 1 million cell Tablet 1 tab PO TID calcium carbonate-vitamin D3 [Caltrate with Vitamin D3] 600 mg(1,500mg) -800 unit Tablet 1 tab PO BID acyclovir 400 mg tablet 400 mg PO AMHS ondansetron HCl 8 mg tablet 8 mg PO Q8 PRN (Reason: Nausea) diphenoxylate-atropine 2.5-0.025 mg tablet 1 tab PO QID PRN (Reason: Diarrhea) Tecvayli 90 mg/mL Solution 90 mg SUBCUT UD Rx Instructions: FRIDAYS ferrous fumarate 324 mg (106 mg iron) tablet 324 mg PO DAILY loperamide 2 mg Tablet 2 mg PO DIRECTED prochlorperazine maleate 10 mg Tablet 10 mg PO Q6H PRN (Reason: Nausea) tramadol 50 mg Tablet 50 mg PO Q6H PRN (Reason: Pain, Severe) clopidogrel 75 mg tablet 75 mg PO QAM ascorbic acid (vitamin C) [Vitamin C] 500 mg Tablet 500 mg PO BID dexamethasone 4 mg tablet 8 mg PO WK Rx Instructions: take 2 tablets on TUESDAY cholecalciferol (vitamin D3) [Vitamin D3] 10 mcg (400 unit) Tablet 10 mcg PO QAM vitamin E 268 mg (400 unit) Capsule 400 mg PO DAILY glucosamine-chondroitin [Osteo Bi-Flex] 250-200 mg Tablet 1 tab PO DAILY pantoprazole 40 mg tablet,delayed release (DR/EC) 40 mg PO DAILY Rx Instructions: Take twice a day for 2 weeks, then once daily At least 30 minutes before breakfast cyanocobalamin (vitamin B-12) [Vitamin B-12] 1,000 mcg Tablet, Sublingual 1,000 mcg SUBLINGUAL DAILY ursodiol 300 mg capsule 300 mg PO BID escitalopram oxalate 10 mg tablet 10 mg PO QAM amlodipine [Norvasc] 5 mg Tablet 5 mg PO QAM 30 Days Qty: 30 1RF lisinopril 10 mg Tablet 10 mg PO QAM 30 Days Qty: 30 1RF Referrals Referrals: Tutu Barber MD [Primary Care Provider] -
--- NOTE | 2023-04-28 17:56 | CT Scan Report ---
CT SCAN OF THE BRAIN WITHOUT IV CONTRAST CLINICAL HISTORY: Change in mental status. COMPARISON STUDY: CT of the brain dated 04/25/2023. TECHNIQUE: Unenhanced axial CT scan of the brain is performed from the vertex to the skull base. A do se lowering technique was utilized adhering to the principles of ALARA. CT DOSE: 547.75 mGy.cm FINDINGS: Brain parenchyma: Foci of right frontal and parietal encephalomalacia are unchanged and consistent wi th remote insults. There is age-related involutional change noting mild to moderate subcortical and p eriventricular microangiopathic disease. There is no hemorrhage, mass effect, or evidence of acute te rritorial ischemia by CT criteria. Cramer-white matter differentiation is preserved. No extra-axial flu id collection is seen. Ventricles, sulci, cisterns: Prominent secondary to involutional change. Intracranial vasculature: There is atherosclerotic calcification of the cavernous carotid and vertebr al arteries. Calvarium: Unremarkable. Sinuses and mastoids: The visualized paranasal sinuses are clear. The mastoid air cells are well pneu matized. Orbits: The bony orbits are grossly intact. IMPRESSION: There is no hemorrhage, mass effect, or evidence of acute territorial ischemia by CT mark villatoro. ACT 112: Negative or not required by law. Electronically signed by: Anastacio Sanabria M.D. 04/28/2023 5:55 PM
[2023-04-28 17:59] LABS: Basophils # (auto) 0.01 K/uL (0.00-0.20); Basophils % (auto) 0.1 %; Eosinophils # (auto) 0.01 K/uL (0.00-0.50); Eosinophils % (auto) 0.1 %; Hematocrit (blood only) 23.6 % (42.0-52.0); Hemoglobin 7.5 g/dl (14.0-18.0); Immature Granulocytes # (auto) 0.06 K/uL (0.01-0.20); Immature Granulocytes % (auto) 0.8 %; Lymphocytes # (auto) 0.57 K/uL (1.20-3.40); Lymphocytes % (auto) 7.8 %; Mean Corpuscular Hgb Conc 31.8 g/dL (32.0-36.0); Mean Corpuscular Volume 94.4 fL (80.0-100.0); Mean Platelet Volume 10.8 fL (9.4-12.4); Monocytes # (auto) 0.72 K/uL (0.11-0.59); Monocytes % (auto) 9.8 %; Neutrophils # (auto) 5.94 K/uL (1.40-6.50); Neutrophils % (auto) 81.4 %; Nucleated RBC # (auto) 0.08 K/uL (0.00-0.12); Nucleated RBC % (auto) 1.1 %; Platelet Count 112 K/uL (130-400); RDW Coefficient of Variation 16.6 % (11.5-14.5); RDW Standard Deviation 57.2 fL (36.4-46.3); White Blood Count 7.31 K/ul (4.8-10.8)
[2023-04-28 18:25] LABS: Ovalocytes 1+; Rouleaux 1+; Tear Drop Cells 1+
--- NOTE | 2023-04-28 18:25 | XRay Report ---
SINGLE VIEW CHEST CLINICAL HISTORY: Generalized weakness. FINDINGS: An AP, portable, upright chest radiograph is compared to study dated 04/25/2023. A right inte rnal jugular central venous infusion port is unchanged in position. The patient is status post midlin e sternotomy. The heart is enlarged noting atherosclerotic calcification of the thoracic. There is pu lmonary vascular congestion. Scarring/atelectasis is noted at the lung bases. No airspace consolidati on or large pleural effusion is identified. No pneumothorax is seen. The bony thorax is grossly intac t. Arthritic change is seen in the shoulders. IMPRESSION: Cardiomegaly with evidence of congestive failure. ACT 112: Negative or not required by law. Electronically signed by: Anastacio Sanabria M.D. 04/28/2023 6:23 PM
[2023-04-28 18:32] LABS: Troponin I High Sensitivity 11.4 pg/ml (0-20)
[2023-04-28 18:39] LABS: Albumin Level 3.2 gm/dl (3.4-5.0); Bilirubin,Total 0.4 mg/dl (0.2-1.0); Magnesium 2.1 mg/dl (1.7-2.4); Potassium 3.9 mmol/L (3.5-5.1); Thyroid Stimulating Hormone 2.983 uIu/ml (0.300-4.500)
[2023-04-28 18:40] LABS: Appearance Urine Clear (Clear); Bilirubin Urine Negative (Negative); Blood Urine Trace (Negative); Color Urine Yellow; Epithelial Cell Urine Auto >30 /lpf (0-5); Glucose Urine UA Negative (Negative); Ketones Urine Negative (Negative); Leukocyte Esterase Urine Negative (Negative); Nitrite Urine Negative (Negative); Protein Urine Trace (Negative); RBC Urine Automated 0-4 /hpf (0-4); Specific Gravity Urine 1.008 (1.000-1.030); Urobilinogen Urine Negative (Negative); pH Urine 6.5 (4.5-7.5)
[2023-04-28 18:45] LABS: Albumin Globulin Ratio 0.6 (0.9-2); BUN Creatinine Ratio 13.1 (10-20); Creatinine Clr Calc Pharmacy 47.9 ml/min; Est GFR (African American) 55.4 ml/min; Est GFR (Non-African American) 47.8 ml/min; Globulin 5.8 gm/dl (2.5-4.0)
[2023-04-28 18:49] LABS: Bacteria Urine Automated 1+ (Negative)
[2023-04-28] MEDS: cefTRIAXone SODIUM 1,000 MG in DEXTROSE 5 % MINI-B 50 ML IV STA (20:36)
--- NOTE | 2023-04-28 21:31 | History & Physical Report ---
Date of Service April 28, 2023 Assessment & Plan (1) Encephalopathy: Plan: Delirium on dementia Multifactorial: ARF secondary to diarrheal illness, home lisinopril contributory rule out C. difficile Complicated UTI, no sepsis for now HTN, slightly elevated hx CAD status post CABG/PVD/CVA hx PSVT, possible TBS given bradycardia on outpatient loop recorder hyperlipidemia, on statin and ezetimibe Rx DM2 diet-controlled, reasonable control as of recent hemoglobin A1c of 7.5 last month pancytopenia likely secondary to chemotherapy, relapsed multiple myeloma status post HSCT ongoing chemotherapy Acute on chronic anemia, no overt bleeding noted Recurrent admissions for confusion hx immunoglobulin deficiency Medical representative personal service creatinine response to IVF, hold lisinopril for now Renal ultrasound if kidney function does not improve. Urine CS, Ceftriaxone Transfuse 1 unit PRBC to maintain hemoglobin of at least 8 given history of vascular disease Basal bolus insulin, ISS BG goal 1 10-1 40, carb count coverage, update hemoglobin A1c Delirium precautions, Zyprexa as needed for agitation PT OT eval DVT prophylaxis. SCDs Re: Episodic thrombocytopenia in the setting of chronic pancytopenia DNR as per prior directives as per , Ms. Evelyn Cuenca. She requests updates providers through [phone]. Text document was generated using [email or web address] voice recognition software. It may contain grammatical or spelling errors. Kindly contact undersigned for clarification of any documentation item in question. History of Present Illness Chief Complaint: Increased confusion as per I do not know as per patient Primary Care Provider: Tutu Barber MD History obtained from patient, family, and records. Limited history from patient secondary to dementia. Medical history significant for CAD status post CABG, PVD, CVA, PSVT, hypertension, hyperlipidemia, BPH, DM2 diet-controlled, pancytopenia, hx chronic anemia (baseline hemoglobin 8), dementia, relapsed multiple myeloma status post HSCT ongoing chemotherapy, immunoglobulin deficiency. Recent confinement last month for encephalopathy attributed to uncontrolled hypertension and mild clinical dehydration. Patient discharged on lisinopril and amlodipine medications. Agitation during confinement requiring as needed Zyprexa. Hemoglobin decreased to 7 during confinement requiring 1 unit PRBC. FOBT positive without melena/hematochezia. Patient discharged on Protonix twice daily. Intermittent watery diarrhea symptoms without abdominal pain prior to leaving hospital. Stool workup from last month negative for infectious causes. Patient discharged on antidiarrheal medications. Recent ER visit 3 days ago for confusion. Patient discharged home after unremarkable workup results at the ER. Patient found by to be more confused than usual today. Not eating a lot the last few days. No chest pain, SOB, abdominal pain, flank pain, UTI complaints. On and off diarrhea symptoms. Patient brought to the ER for evaluation. IV ceftriaxone administered at the ER for possible UTI. 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 Allergies Allergy/AdvReac Type Severity Reaction Status Date / Time No Known Allergies Allergy Verified 04/25/23 21:42 Home Medications Medication Instructions Recorded Confirmed Type Lactobacillus acidoph-L.bulgaricus 1 tab PO TID 12/04/17 04/28/23 History 1 million cell tablet (Floranex) calcium carbonate 600 mg-vitamin 1 tab PO BID 12/04/17 04/28/23 History D3 20 mcg (800 unit) tablet (Caltrate with Vitamin D3) clobetasol 0.05 % shampoo 1 applic topical DAILY PRN Skin 12/04/17 04/28/23 History Irritation ezetimibe 10 mg tablet (Zetia) 10 mg PO QAM 12/04/17 04/28/23 History finasteride 5 mg tablet (Proscar) 5 mg PO QAM 12/04/17 04/28/23 History rosuvastatin 40 mg tablet (Crestor) 20 mg PO QAM 12/04/17 04/28/23 History tamsulosin 0.4 mg capsule (Flomax) 0.4 mg PO QAM 12/04/17 04/28/23 History vit A 300 mcg-C 200 mg-E 27 1 tab PO QAM 12/04/17 04/28/23 History mg-lutein 2 mg and minerals tablet (Vision Formula (with lutein)) acyclovir 400 mg tablet 400 mg PO AMHS 07/26/21 04/28/23 History diphenoxylate-atropine 2.5 1 tab PO QID PRN Diarrhea 04/19/22 04/28/23 History mg-0.025 mg tablet ondansetron HCl 8 mg tablet 8 mg PO Q8 PRN Nausea 04/19/22 04/28/23 History ascorbic acid (vitamin C) 500 mg 500 mg PO BID 07/30/22 04/28/23 History tablet (Vitamin C) cholecalciferol (vitamin D3) 10 10 mcg PO QAM 07/30/22 04/28/23 History mcg (400 unit) tablet (Vitamin D3) clopidogrel 75 mg tablet 75 mg PO QAM 07/30/22 04/28/23 History dexamethasone 4 mg tablet 8 mg PO WK 07/30/22 04/28/23 History glucosamine-chondroitin 250 mg-200 1 tab PO DAILY 07/30/22 04/28/23 History mg tablet (Osteo Bi-Flex) vitamin E 268 mg (400 unit) capsule 400 mg PO DAILY 07/30/22 04/28/23 History teclistamab-cqyv 90 mg/mL 90 mg subcut UD 11/04/22 04/28/23 History subcutaneous solution (Tecvayli) ferrous fumarate 324 mg (106 mg 324 mg PO DAILY 01/21/23 04/28/23 History iron) tablet loperamide 2 mg tablet 2 mg PO DIRECTED 01/21/23 04/28/23 History prochlorperazine maleate 10 mg 10 mg PO Q6H PRN Nausea 01/21/23 04/28/23 History tablet tramadol 50 mg tablet 50 mg PO Q6H PRN Pain, Severe 01/21/23 04/28/23 History escitalopram oxalate 10 mg tablet 10 mg PO QAM 03/30/23 04/28/23 History ursodiol 300 mg capsule 300 mg PO BID 03/30/23 04/28/23 History amlodipine 5 mg tablet (Norvasc) 5 mg PO QAM 30 days #30 tabs 04/02/23 04/28/23 Rx lisinopril 10 mg tablet 10 mg PO QAM 30 days #30 tabs 04/02/23 04/28/23 Rx cyanocobalamin (vitamin B-12) 1,000 mcg sublingual DAILY 04/28/23 04/28/23 History 1,000 mcg sublingual tablet pantoprazole 40 mg tablet,delayed 40 mg PO DAILY 04/28/23 04/28/23 History release Past Med/Surg History Medical History History of COVID-19 diagnosed 10/22/21 @ [facility]---fever, sore throat, slight cough, fatigue--no symptoms now Osteoarthritis BPH (benign prostatic hyperplasia) Stroke Mini [id number] -- residual mild short term memory Multiple myeloma Initially dx 2018 - s/p chemo- had been in remission until recently CAD (coronary artery disease) "S/P CABG 4 in 12/2016" RBBB Hypertension Dyslipidemia Carotid artery stenosis (Unknown) Carotid Doppler 11/13/2019 = right ICA 50-69% stenosis, left ICA <50% stenosis Nonruptured cerebral aneurysm (Unknown) "3.3 mm aneurysm extending off the ophthalmic segment of the right ICA Oct 2012 Per [facility] 07/04/17- no change in 3.3 cm aneurysm in ophthalmic segment of right ICA Surgical History History of colonoscopy History of cardiac cath (~12/31/16) @ [facility]--no stents had CABG done History of loop recorder (~05/20/21) Meditronic placed @ [facility] History of vascular access device (~08/26/20) A Port in right jugular History of lumbar spinal fusion History of total right hip replacement H/O rotator cuff surgery S/P CABG x 4 ghs in [place] Family History Other Dementia Myocardial infarction No family history of adverse response to anesthesia Social History Smoking Status: Never smoker Second Hand Exposure: No; Do You Dip or Chew Tobacco: No; Tobacco Cessation Education Requested by Patient: No Hx Alcohol Use: No Hx Substance Use: No Preferred Language: Luxembourgish Communication Ability: Effective Adjunct [employer] Terminology Required: No Beliefs That Will Affect Care: None marital status: Current Living Situation: Spouse current occupational status: unemployed Other Information That Helps Us Care for You: No Feels Safe at Home: Yes Safety Concerns: Feels Safe At This Time Assistive Devices: Denture - Upper and Denture - Lower Review of Systems Review of Systems: Could not be reliably obtained secondary to dementia Physical Exam 2 Physical Exam: GENERAL: Demented, pleasant, no respiratory distress SKIN: Pallor, warm HEENT: Pale palpebral conjunctivae, no ptosis, dry buccal mucosa NECK : Supple, no tenderness CHEST : CTA, no tenderness HEART : RRR, no obvious murmurs ABDOMEN: Some distention, nontender EXTREMITIES : No LE swelling/tenderness, no other conspicuous deformities noted NEUROLOGIC : demented, no facial asymmetry, gait and stance not assessed Results & Data Results & Data Vital Signs (Past 12 Hours) Vital Signs Temp Pulse Pulse Resp BP BP Pulse Ox 04/28/23 20:35 80 16 157/84 H 97 04/28/23 20:10 79 04/28/23 18:36 83 18 162/90 H 98 04/28/23 17:32 99 04/28/23 17:26 98 04/28/23 17:25 85 18 154/84 H 98 04/28/23 16:14 77 04/28/23 15:54 74 22 107/62 97 04/28/23 15:47 36.5 C 77 19 107/62 99 O2 Del Method 04/28/23 20:35 Room Air 04/28/23 20:10 04/28/23 18:36 Room Air 04/28/23 17:32 Room Air 04/28/23 17:26 Room Air 04/28/23 17:25 Room Air 04/28/23 16:14 04/28/23 15:54 Room Air 04/28/23 15:47 Room Air Laboratory Results Laboratory Results WBC 7.31 K/ul (4.8-10.8) 04/28/23 15:52 RBC 2.50 M/uL (4.70-6.10) L 04/28/23 15:52 Hgb 7.5 g/dl (14.0-18.0) L 04/28/23 15:52 Hct 23.6 % (42.0-52.0) L 04/28/23 15:52 MCV 94.4 fL (80.0-100.0) 04/28/23 15:52 MCH 30.0 pg (25.0-34.0) 04/28/23 15:52 MCHC 31.8 g/dL (32.0-36.0) L 04/28/23 15:52 RDW Std Deviation 57.2 fL (36.4-46.3) H 04/28/23 15:52 RDW Coeff of Kimber 16.6 % (11.5-14.5) H 04/28/23 15:52 Plt Count 112 K/uL (130-400) L 04/28/23 15:52 MPV 10.8 fL (9.4-12.4) 04/28/23 15:52 Immature Gran % (Auto) 0.8 % 04/28/23 15:52 Neut % (Auto) 81.4 % 04/28/23 15:52 Lymph % (Auto) 7.8 % 04/28/23 15:52 Carver % (Auto) 9.8 % 04/28/23 15:52 Eos % (Auto) 0.1 % 04/28/23 15:52 Baso % (Auto) 0.1 % 04/28/23 15:52 Neut # (Auto) 5.94 K/uL (1.40-6.50) 04/28/23 15:52 Lymph # (Auto) 0.57 K/uL (1.20-3.40) L 04/28/23 15:52 Carver # (Auto) 0.72 K/uL (0.11-0.59) H 04/28/23 15:52 Eos # (Auto) 0.01 K/uL (0.00-0.50) 04/28/23 15:52 Baso # (Auto) 0.01 K/uL (0.00-0.20) 04/28/23 15:52 Immature Gran # (Auto) 0.06 K/uL (0.01-0.20) 04/28/23 15:52 Absolute Nucleated RBC 0.08 K/uL (0.00-0.12) 04/28/23 15:52 Nucleated RBC % (auto) 1.1 % 04/28/23 15:52 Tear Drop Cells 1+ 04/28/23 15:52 Ovalocytes 1+ 04/28/23 15:52 Rouleaux 1+ 04/28/23 15:52 Sodium 138 mmol/L (136-145) 04/28/23 15:52 Potassium 3.9 mmol/L (3.5-5.1) 04/28/23 15:52 Chloride 104 mmol/L (98-107) 04/28/23 15:52 Carbon Dioxide 19 mmol/L (21-32) L 04/28/23 15:52 Anion Gap 15 (3-11) H 04/28/23 15:52 BUN 19 mg/dl (6-23) 04/28/23 15:52 Creatinine 1.45 mg/dl (0.6-1.4) H 04/28/23 15:52 Est Cr Clr Drug Dosing 47.9 ml/min 04/28/23 15:52 Est GFR ( Amer) 55.4 ml/min 04/28/23 15:52 Est GFR (Non-Af Amer) 47.8 ml/min 04/28/23 15:52 BUN/Creatinine Ratio 13.1 (10-20) 04/28/23 15:52 Glucose 98 mg/dl (70-99(Fasting)) 04/28/23 15:52 POC Glucose 113 mg/dl (70-99) H 04/28/23 15:49 Calcium 8.0 mg/dl (8.6-10.3) L 04/28/23 15:52 Magnesium 2.1 mg/dl (1.7-2.4) 04/28/23 15:52 Total Bilirubin 0.4 mg/dl (0.2-1.0) 04/28/23 15:52 AST 22 U/L (13-39) 04/28/23 15:52 ALT 13 U/L (7-52) 04/28/23 15:52 Alkaline Phosphatase 38 U/L (34-104) 04/28/23 15:52 Lactate Dehydrogenase 130 U/L (86-244) 04/28/23 15:52 Troponin I High Sens 11.4 pg/ml (0-20) 04/28/23 15:52 Total Protein 9.0 gm/dl (6.0-8.3) H 04/28/23 15:52 Albumin 3.2 gm/dl (3.4-5.0) L 04/28/23 15:52 Globulin 5.8 gm/dl (2.5-4.0) H 04/28/23 15:52 Albumin/Globulin Ratio 0.6 (0.9-2) L 04/28/23 15:52 TSH 2.983 uIu/ml (0.300-4.500) 04/28/23 15:52 Urine Color Yellow 04/28/23 18:20 Urine Appearance Clear (Clear) 04/28/23 18:20 Urine pH 6.5 (4.5-7.5) 04/28/23 18:20 Ur Specific [place] 1.008 (1.000-1.030) 04/28/23 18:20 Urine Protein Trace (Negative) H 04/28/23 18:20 Urine Glucose (UA) Negative (Negative) 04/28/23 18:20 Urine Ketones Negative (Negative) 04/28/23 18:20 Urine Blood Trace (Negative) H 04/28/23 18:20 Urine Nitrite Negative (Negative) 04/28/23 18:20 Urine Bilirubin Negative (Negative) 04/28/23 18:20 Urine Urobilinogen Negative (Negative) 04/28/23 18:20 Ur Leukocyte Esterase Negative (Negative) 04/28/23 18:20 Urine WBC (Auto) 10-30 /hpf (0-5) H 04/28/23 18:20 Urine RBC (Auto) 0-4 /hpf (0-4) 04/28/23 18:20 U Hyaline Cast (Auto) 1-5 /lpf (0-5) 04/28/23 18:20 U Epithel Cells (Auto) >30 /lpf (0-5) H 04/28/23 18:20 Urine Bacteria (Auto) 1+ (Negative) H 04/28/23 18:20 Ur Renal Epithelial Cell Not Reportable 04/28/23 18:20 Impressions Chest X-Ray 04/28/23 17:25 SINGLE VIEW CHEST CLINICAL HISTORY: Generalized weakness. FINDINGS: An AP, portable, upright chest radiograph is compared to study dated 04/25/2023. A right internal jugular central venous infusion port is unchanged in position. The patient is status post midline sternotomy. The heart is enlarged noting atherosclerotic calcification of the thoracic. There is pulmonary vascular congestion. Scarring/atelectasis is noted at the lung bases. No airspace consolidation or large pleural effusion is identified. No pneumothorax is seen. The bony thorax is grossly intact. Arthritic change is seen in the shoulders. IMPRESSION: Cardiomegaly with evidence of congestive failure. ACT 112: Negative or not required by law. Electronically signed by: Anastacio Sanabria M.D. 04/28/2023 6:[address] 04/28/23 17:25 CT SCAN OF THE BRAIN WITHOUT IV CONTRAST CLINICAL HISTORY: Change in mental status. COMPARISON STUDY: CT of the brain dated 04/25/2023. TECHNIQUE: Unenhanced axial CT scan of the brain is performed from the vertex to the skull base. A dose lowering technique was utilized adhering to the principles of ALARA. CT DOSE: 547.75 mGy.cm FINDINGS: Brain parenchyma: Foci of right frontal and parietal encephalomalacia are unchanged and consistent with remote insults. There is age-related involutional change noting mild to moderate subcortical and periventricular microangiopathic disease. There is no hemorrhage, mass effect, or evidence of acute territorial ischemia by CT criteria. Cramer-white matter differentiation is preserved. No extra-axial fluid collection is seen. Ventricles, sulci, cisterns: Prominent secondary to involutional change. Intracranial vasculature: There is atherosclerotic calcification of the cavernous carotid and vertebral arteries. Calvarium: Unremarkable. Sinuses and mastoids: The visualized paranasal sinuses are clear. The mastoid air cells are well pneumatized. Orbits: The bony orbits are grossly intact. IMPRESSION: There is no hemorrhage, mass effect, or evidence of acute territorial ischemia by CT criteria. ACT 112: Negative or not required by law. Electronically signed by: Anastacio Sanabria M.D. 04/28/2023 5:55 PM Diagnostic Findings EKG as per my interpretation : Rate 85, NSR, LAD, LAFB, LVH, T wave abnormalities septal leads
[2023-04-28 22:39] LABS: Hemoglobin 7.5 g/dl (14.0-18.0)
[2023-04-28 22:56] LABS: BUN Creatinine Ratio 12.8 (10-20); Calcium 7.7 mg/dl (8.6-10.3); Creatinine Clr Calc Pharmacy 52.2 ml/min; Est GFR (African American) 61.5 ml/min; Potassium 3.6 mmol/L (3.5-5.1)
[2023-04-28] MEDS ORDERED: SODIUM CHLORIDE 0.9% 250 ML IV PRN (23:22)
[2023-04-28] MEDS ORDERED: HALOPERIDOL LACTATE 5 MG/ML 1 ML VIAL IM PRN ×2 (23:33→23:36)
[2023-04-28] MEDS: HALOPERIDOL LACTATE 5 MG/ML 1 ML VIAL IM STA (23:38)
[2023-04-29] MEDS: OLANZapine 10 MG/2.1 ML SDV IM STA (00:46)
[2023-04-29] MEDS ORDERED: DEXTROSE 50% 50 ML SYRINGE IV PRN (01:50)
[2023-04-29] MEDS ORDERED: GLUCOSE 40% GEL 15 GM TUBE PO PRN (01:50)
[2023-04-29] MEDS ORDERED: CARBOHYDRATES FOR HYPOGLYCEMIA PO PRN (01:50)
[2023-04-29] MEDS ORDERED: GLUCOSE 10 TAB/TUBE PO PRN (01:50)
[2023-04-29] MEDS ORDERED: GLUCAGON FOR INJ 1 MG VIAL SQ PRN (01:50)
[2023-04-29] MEDS: POTASSIUM CHLORIDE / WTR 10 MEQ/100 ML PLCT IV SCH (02:30)
[2023-04-29] MEDS: METOPROLOL TARTRATE 1 MG/ML VIAL IV STA (03:24)
[2023-04-29] MEDS: OLANZapine 10 MG/2.1 ML SDV IM PRN (06:49)
[2023-04-29] MEDS: INSULIN ASPART PER UNIT CHARGE SC SCH (07:37)
--- NOTE | 2023-04-29 08:20 | Hospitalist Progress Note ---
Date of Service April 29, 2023 Assessment & Plan (1) Encephalopathy: Plan: ACUTE METABOLIC ENCEPHALOPATHY HISTORY OF DEMENTIA MULTIFACTORIAL: ARF SECONDARY TO DIARRHEAL ILLNESS, HOME LISINOPRIL CONTRIBUTORY RULE OUT C. DIFFICILE COMPLICATED UTI CT head: Negative for acute process Blood culture: Pending Urine culture: Pending Continue with IV fluids Follow-up stool panel, C. difficile Continue with IV ceftriaxone ANEMIA No active GI bleed noted so far No hematochezia or melena at home per patient's Check for fecal occult blood test Iron level 60 during last month's admission Hemoglobin 8.5 after 1 unit of packed RBC transfusion HTN, slightly elevated --Monitor closely --Continue with usual meds hx CAD status post CABG/PVD/CVA hx PSVT, possible TBS given bradycardia on outpatient loop recorder hyperlipidemia, on statin and ezetimibe Rx DM2 diet-controlled, reasonable control as of recent hemoglobin A1c of 7.5 last month pancytopenia likely secondary to chemotherapy, relapsed multiple myeloma status post HSCT ongoing chemotherapy hx immunoglobulin deficiency Delirium precautions, Zyprexa as needed for agitation PT OT eval DVT prophylaxis. SCDs Re: Episodic thrombocytopenia in the setting of chronic pancytopenia DNR as per prior directives as per , Ms. Evelyn Cuenca. Admission and Anticipated Discharge Date Admission Date: April 28, 2023 Subjective Follow-up for acute metabolic encephalopathy, possible UTI, anemia, etc. Seen with patient's at the bedside visiting Patient is seen resting in bed, not in distress Alert, answers simple questions appropriately Appears somewhat anxious Mental status improved compared to last night according to the patient's Patient states he feels weak overall Denies headache, neck pain, chest pain, shortness of breath abdominal pain, problems with urination No other new symptoms Review of Systems Review of Systems: all noted and negative except for above Physical Exam Physical Exam: General- oriented x 2, not in distress, speaks in sentences with no effort or accessory muscle use Eyes- anicteric Neck- no JVD Lungs- clear breath sounds bilaterally, no rales/wheezes Heart- normal rate, regular rhythm; no murmurs Abdomen- normal bowel sounds, nondistended, soft, nontender Extremities- no pretibial edema, no calf tenderness Neuro- alert, oriented x 2; no gross focal neurologic deficits Skin- warm & dry Results & Data Results & Data Vital Signs (Past 12 Hours) Vital Signs Temp Pulse Pulse Resp BP BP Pulse Ox 04/29/23 06:34 101 H 17 159/83 H 04/29/23 06:01 115 H 147/54 H 04/29/23 05:25 36.7 C 95 H 20 168/93 H 96 04/29/23 05:01 100 H 18 150/76 H 96 04/29/23 04:25 36.5 C 93 H 20 153/95 H 96 04/29/23 04:00 84 19 91 04/29/23 03:25 36.9 C 90 20 143/58 H 98 04/29/23 02:55 36.7 C 98 H 18 143/87 H 94 04/29/23 02:40 36.5 C 88 19 160/88 H 96 04/29/23 02:27 36.2 C L 98 H 18 153/84 H 95 04/29/23 01:03 91 H 16 138/80 92 04/29/23 00:18 04/29/23 00:06 04/29/23 00:01 103 H 22 136/50 L 95 04/29/23 00:00 107 H 20 92 04/28/23 23:55 36.6 C 04/28/23 23:42 148 H 04/28/23 23:00 79 17 158/78 H 94 04/28/23 22:45 84 18 152/96 H 97 04/28/23 20:35 80 16 157/84 H 97 Pulse Ox O2 Del Method O2 Del Method 04/29/23 06:34 04/29/23 06:01 04/29/23 05:25 04/29/23 05:01 Room Air 04/29/23 04:25 04/29/23 04:00 Room Air 04/29/23 03:25 04/29/23 02:55 04/29/23 02:40 04/29/23 02:27 04/29/23 01:03 Room Air 04/29/23 00:18 95 Room Air 04/29/23 00:06 Room Air 04/29/23 00:01 Room Air 04/29/23 00:00 Room Air 04/28/23 23:55 04/28/23 23:42 04/28/23 23:00 Room Air 04/28/23 22:45 Room Air 04/28/23 20:35 Room Air all noted and reviewed including below
[2023-04-29 08:46] LABS: Basophils # (auto) 0.02 K/uL (0.00-0.20); Basophils % (auto) 0.3 %; Eosinophils # (auto) 0.01 K/uL (0.00-0.50); Eosinophils % (auto) 0.1 %; Hematocrit (blood only) 25.5 % (42.0-52.0); Hemoglobin 8.3 g/dl (14.0-18.0); Immature Granulocytes # (auto) 0.06 K/uL (0.01-0.20); Immature Granulocytes % (auto) 0.9 %; Lymphocytes # (auto) 1.24 K/uL (1.20-3.40); Lymphocytes % (auto) 18.2 %; Mean Corpuscular Hemoglobin 29.3 pg (25.0-34.0); Mean Corpuscular Hgb Conc 32.5 g/dL (32.0-36.0); Mean Corpuscular Volume 90.1 fL (80.0-100.0); Monocytes # (auto) 0.63 K/uL (0.11-0.59); Monocytes % (auto) 9.2 %; Neutrophils # (auto) 4.86 K/uL (1.40-6.50); Neutrophils % (auto) 71.3 %; Nucleated RBC # (auto) 0.07 K/uL (0.00-0.12); Platelet Count 107 K/uL (130-400); RDW Standard Deviation 58.5 fL (36.4-46.3); Red Blood Count 2.83 M/uL (4.70-6.10); White Blood Count 6.82 K/ul (4.8-10.8)
[2023-04-29] MEDS ORDERED: NON-FORMULARY MEDICATION (Vit A,C And E-Lutein-Minerals [Vision Formula (With Lutein)] 1,0 PO SCH (09:00)
[2023-04-29] MEDS ORDERED: FERROUS FUMARATE PO SCH (09:00)
[2023-04-29 09:07] LABS: BUN Creatinine Ratio 16.2 (10-20); Calcium 7.8 mg/dl (8.6-10.3); Creatinine Clr Calc Pharmacy 62.6 ml/min; Est GFR (African American) 76.5 ml/min; Potassium 3.7 mmol/L (3.5-5.1)
[2023-04-29] MEDS: EZETIMIBE 10 MG TAB PO SCH (10:22)
[2023-04-29] MEDS: ADVANCED PROBIOTIC 625 MG CAPSULE PO SCH (10:22)
[2023-04-29] MEDS: FINASTERIDE 5 MG TAB PO SCH (10:22)
[2023-04-29] MEDS: ESCITALOPRAM OXALATE 10 MG TAB PO SCH (10:22)
[2023-04-29] MEDS: amLODIPine BESYLATE 5 MG TAB PO SCH (10:22)
[2023-04-29] MEDS: PANTOprazole 40 MG TAB PO SCH (10:22)
[2023-04-29] MEDS: ACYCLOVIR 400 MG TAB PO SCH (10:22)
[2023-04-29] MEDS: CLOPIDOGREL BISULFATE 75 MG TAB PO SCH (10:22)
[2023-04-29] MEDS: ROSUVASTATIN CALCIUM 20 MG TAB PO SCH (10:23)
[2023-04-29] MEDS: ursodioL 300 MG CAP PO SCH (10:23)
[2023-04-29] MEDS: TAMSULOSIN HCL 0.4 MG CAP PO SCH (10:23)
[2023-04-29] MEDS: ACETAMINOPHEN 325 MG TAB PO PRN (12:50)
--- NOTE | 2023-04-29 16:30 | Electrocardiogram Report ---
Test Reason : Blood Pressure : / mmHG Vent. Rate : 085 BPM Atrial Rate : 085 BPM P-R Int : 172 ms QRS Dur : 116 ms QT Int : 392 ms P-R-T Axes : 041 -43 071 degrees QTc Int : 466 ms Normal sinus rhythm Left axis deviation Left ventricular hypertrophy with QRS widening and repolarization abnormality Abnormal ECG When compared with ECG of 25-APR-2023 21:10, No significant change was found Confirmed by Miko Isaacs ([id number]) on 04/29/2023 4:30:07 PM Referred By: REFERRED SELF Confirmed By:Miko Isaacs
[2023-04-29] MEDS: ACETAMINOPHEN 1,000 MG/100 ML VIAL IV STA (17:30)
[2023-04-29 18:34] LABS: Adenovirus F 40/41 PCR Not Detected (NotDetected); Astrovirus PCR Not Detected (NotDetected); Campylobacter PCR Not Detected (NotDetected); Cryptosporidium PCR Not Detected (NotDetected); Cyclospora cayetanensis PCR Not Detected (NotDetected); Entamoeba histolytica PCR Not Detected (NotDetected); Enteroaggregative E.coli(EAEC) Not Detected (NotDetected); Enteropathogenic E.coli (EPEC) Not Detected (NotDetected); Enterotoxigenic E.coli (ETEC) Not Detected (NotDetected); Giardia lamblia PCR Not Detected (NotDetected); Norovirus GI/GII PCR Not Detected (NotDetected); Plesiomonas shigelloides PCR Not Detected (NotDetected); Rotavirus A PCR Not Detected (NotDetected); Salmonella PCR Not Detected (NotDetected); Sapovirus PCR Not Detected (NotDetected); Shiga-like Toxin E.coli (STEC) Not Detected (NotDetected); Shigella/Enteroinvasive E.coli Not Detected (NotDetected); Vibrio cholerae PCR Not Detected (NotDetected); Vibrio species PCR Not Detected (NotDetected); Yersinia enterocolitica PCR Not Detected (NotDetected)
[2023-04-29] MEDS: D5W AND NSS 1,000 ML IV SCH (19:06)
[2023-04-29] MEDS: cefTRIAXone SODIUM 2,000 MG in DEXTROSE 5 % MINI-B 50 ML IV SCH (20:56)
[2023-04-30 06:21] LABS: Basophils # (auto) 0.01 K/uL (0.00-0.20); Basophils % (auto) 0.2 %; Eosinophils # (auto) 0.05 K/uL (0.00-0.50); Hematocrit (blood only) 24.3 % (42.0-52.0); Hemoglobin 8.1 g/dl (14.0-18.0); Immature Granulocytes # (auto) 0.05 K/uL (0.01-0.20); Lymphocytes # (auto) 0.96 K/uL (1.20-3.40); Lymphocytes % (auto) 18.7 %; Mean Corpuscular Hemoglobin 29.9 pg (25.0-34.0); Mean Corpuscular Hgb Conc 33.3 g/dL (32.0-36.0); Mean Corpuscular Volume 89.7 fL (80.0-100.0); Mean Platelet Volume 9.5 fL (9.4-12.4); Monocytes # (auto) 0.71 K/uL (0.11-0.59); Monocytes % (auto) 13.8 %; Neutrophils # (auto) 3.36 K/uL (1.40-6.50); Neutrophils % (auto) 65.3 %; Nucleated RBC # (auto) 0.07 K/uL (0.00-0.12); Nucleated RBC % (auto) 1.4 %; Platelet Count 96 K/uL (130-400); RDW Coefficient of Variation 19.2 % (11.5-14.5); RDW Standard Deviation 62.1 fL (36.4-46.3); Red Blood Count 2.71 M/uL (4.70-6.10); White Blood Count 5.14 K/ul (4.8-10.8)
[2023-04-30 06:43] LABS: BUN Creatinine Ratio 11.8 (10-20); Calcium 7.5 mg/dl (8.6-10.3); Creatinine Clr Calc Pharmacy 63.2 ml/min; Est GFR (African American) 77.3 ml/min; Est GFR (Non-African American) 66.7 ml/min; Potassium 3.5 mmol/L (3.5-5.1)
[2023-04-30] MEDS ORDERED: CHLORASEPTIC (PHENOL) 1.4% SOLN 180 ML BTL MT PRN ×2 (08:07)
[2023-04-30 09:52] LABS: Adenovirus PCR Not Detected (NotDetected); Bordetella parapertussis PCR Not Detected (NotDetected); Bordetella pertussis PCR Not Detected (NotDetected); Chlamydia pneumoniae PCR Not Detected (NotDetected); Coronavirus 229E PCR Not Detected (NotDetected); Coronavirus CoV-2 (COVID19)PCR Not Detected (NotDetected); Coronavirus HKU1 PCR Not Detected (NotDetected); Coronavirus NL63 PCR Not Detected (NotDetected); Coronavirus OC43PCR Not Detected (NotDetected); Human Metapneumovirus PCR Not Detected (NotDetected); Influenza A PCR Not Detected (NotDetected); Influenza B PCR Not Detected (NotDetected); Mycoplasma pneumoniae PCR Not Detected (NotDetected); Parainfluenza Virus 1 PCR Not Detected (NotDetected); Parainfluenza Virus 2 PCR Not Detected (NotDetected); Parainfluenza Virus 3 PCR Not Detected (NotDetected); Parainfluenza Virus 4 PCR Not Detected (NotDetected); Respiratory Syncytial VirusPCR Not Detected (NotDetected); Rhinovirus/Enterovirus PCR Not Detected (NotDetected)
--- NOTE | 2023-04-30 12:29 | Hospitalist Progress Note ---
Date of Service April 30, 2023 Assessment & Plan (1) Encephalopathy: Plan: ACUTE METABOLIC ENCEPHALOPATHY HISTORY OF DEMENTIA MULTIFACTORIAL: ARF SECONDARY TO DIARRHEAL ILLNESS, HOME LISINOPRIL CONTRIBUTORY RULE OUT C. DIFFICILE COMPLICATED UTI CT head: Negative for acute process Blood culture: Pending Urine culture: Pending Continue with IV fluids Follow-up stool panel, C. difficile Continue with IV ceftriaxone 04/28 mental status seems to be improving per cultures negative so far stool panel: negative biofire: negative continue IV Ceftri Day # 3 continue IV fluids for now ANEMIA Pancytopenia likely secondary to chemotherapy, relapsed multiple myeloma status post HSCT ongoing chemotherapy History of immunoglobulin deficiency No active GI bleed noted so far No hematochezia or melena at home per patient's Check for fecal occult blood test Iron level 60 during last month's admission Hemoglobin 8.5 after 1 unit of packed RBC transfusion 04/28 no signs of melena FOBT pending Hg 8.1 HTN resume Lisinopril continue Amlodipine PRN Hydralazine hx CAD status post CABG/PVD/CVA hx PSVT, possible TBS given bradycardia on outpatient loop recorder DM2 diet-controlled, reasonable control as of recent hemoglobin A1c of 7.5 last month hyperlipidemia, on statin and ezetimibe Rx Delirium precautions Zyprexa as needed for agitation PT OT eval DVT prophylaxis. SCDs Re: Episodic thrombocytopenia in the setting of chronic pancytopenia DNR as per prior directives as per , Ms. Evelyn Cuenca. Admission and Anticipated Discharge Date Admission Date: April 28, 2023 Subjective ff up for encephalopathy, etc seen resting in bed, comfortable sleeping was reporting sore throat with RN this morning was confused this morning, improved after patient's arrived at bedside states patient was ambulating to the bathroom today had 2-3 pasty, brown stools no other new symptoms Review of Systems Review of Systems: all noted and negative except for above Physical Exam Physical Exam: patient sleeping not in distress requested not to wake him up for now will examine later today Results & Data Results & Data Vital Signs (Past 12 Hours) Vital Signs Temp Pulse Pulse Resp BP BP Pulse Ox 04/30/23 11:15 36.8 C 66 18 160/85 H 95 04/30/23 07:22 36.4 C L 93 H 18 185/92 H 98 03/09/24 07:18 101 H 04/30/23 02:57 36.9 C 82 18 154/77 H 93 O2 Del Method 04/30/23 11:15 Room Air 04/30/23 07:22 Room Air 04/30/23 07:18 04/30/23 02:57 Room Air all noted and reviewed including below
[2023-05-01 06:29] LABS: Basophils # (auto) 0.01 K/uL (0.00-0.20); Basophils % (auto) 0.3 %; Eosinophils # (auto) 0.09 K/uL (0.00-0.50); Eosinophils % (auto) 2.3 %; Hematocrit (blood only) 22.8 % (42.0-52.0); Hemoglobin 7.5 g/dl (14.0-18.0); Immature Granulocytes # (auto) 0.02 K/uL (0.01-0.20); Immature Granulocytes % (auto) 0.5 %; Lymphocytes # (auto) 0.85 K/uL (1.20-3.40); Lymphocytes % (auto) 21.6 %; Mean Corpuscular Hemoglobin 30.1 pg (25.0-34.0); Mean Corpuscular Hgb Conc 32.9 g/dL (32.0-36.0); Mean Corpuscular Volume 91.6 fL (80.0-100.0); Monocytes # (auto) 0.56 K/uL (0.11-0.59); Monocytes % (auto) 14.2 %; Neutrophils # (auto) 2.41 K/uL (1.40-6.50); Neutrophils % (auto) 61.1 %; Nucleated RBC # (auto) 0.05 K/uL (0.00-0.12); Nucleated RBC % (auto) 1.3 %; Platelet Count 89 K/uL (130-400); RDW Coefficient of Variation 18.6 % (11.5-14.5); RDW Standard Deviation 61.3 fL (36.4-46.3); Red Blood Count 2.49 M/uL (4.70-6.10); White Blood Count 3.94 K/ul (4.8-10.8)
[2023-05-01 06:44] LABS: BUN Creatinine Ratio 11.9 (10-20); Calcium 7.3 mg/dl (8.6-10.3); Creatinine Clr Calc Pharmacy 67.7 ml/min; Est GFR (African American) 85.7 ml/min; Potassium 3.4 mmol/L (3.5-5.1)
[2023-05-01 07:08] LABS: Polychromasia 1+; Rouleaux 2+
[2023-05-01 09:16] LABS: Albumin Level 2.9 gm/dl (3.4-5.0)
[2023-05-01] MEDS: POTASSIUM CHLORIDE CRTAB 20 MEQ TABCR PO STA (10:21)
[2023-05-01] MEDS: PANTOprazole 40 MG in SYRINGE 0 ML IV SCH (10:21)
--- NOTE | 2023-05-01 10:21 | Gastrointestinal Consultation ---
Date of Consultation May 01, 2023 Assessment & Plan (1) Anemia: He has anemia but it is chronic and his hemoglobin is in the range it has been in the past. More than likely this is related to his myeloma. He is not actively bleeding as no blood has been seen by nursing or spouse. He did have a positive stool for blood a month ago but none documented now. He is in the hospital with encephalopathy or dementia and cannot contribute to his care. I don't think colonoscopy is needed at this time as he does have other causes for his anemia--i.e. myeloma. Colonoscopy could be considered as an outpatient if he recovers mentally or if it is deemed necessary. It could also be done prior to discharge if logistics make it more reasonable that way. History of Present Illness Reason for Consultation: anemia Attending Physician: Patel Figueroa MD History of Present Illness 72 year old man with non responsive multiple myeloma and chronic anemia. I am asked to see him for anemia. Patient admitted with change in mental status so history taken from spouse. She says they are worried about him losing blood but then she says she has not seen him pass any blood. She has not seen blood in his stool or melena. He just had BM and nurse said there was no blood in it. Stool was positive for blood on 04/01/23. He had an EGD and an EUS in the not too distant past by Dr. Geller for elevated LFT's. He does not indicate to his that his stomach bothers him. He has had diarrhea since admit and starting antibiotics. Allergies Allergy/AdvReac Type Severity Reaction Status Date / Time No Known Allergies Allergy Verified 04/25/23 21:42 Home Medications Medication Instructions Recorded Confirmed Type Lactobacillus acidoph-L.bulgaricus 1 tab PO TID 12/04/17 04/28/23 History 1 million cell tablet (Floranex) calcium carbonate 600 mg-vitamin 1 tab PO BID 12/04/17 04/28/23 History D3 20 mcg (800 unit) tablet (Caltrate with Vitamin D3) clobetasol 0.05 % shampoo 1 applic topical DAILY PRN Skin 12/04/17 04/28/23 History Irritation ezetimibe 10 mg tablet (Zetia) 10 mg PO QAM 12/04/17 04/28/23 History finasteride 5 mg tablet (Proscar) 5 mg PO QAM 12/04/17 04/28/23 History rosuvastatin 40 mg tablet (Crestor) 20 mg PO QAM 12/04/17 04/28/23 History tamsulosin 0.4 mg capsule (Flomax) 0.4 mg PO QAM 12/04/17 04/28/23 History vit A 300 mcg-C 200 mg-E 27 1 tab PO QAM 12/04/17 04/28/23 History mg-lutein 2 mg and minerals tablet (Vision Formula (with lutein)) acyclovir 400 mg tablet 400 mg PO AMHS 07/26/21 04/28/23 History diphenoxylate-atropine 2.5 1 tab PO QID PRN Diarrhea 04/19/22 04/28/23 History mg-0.025 mg tablet ondansetron HCl 8 mg tablet 8 mg PO Q8 PRN Nausea 04/19/22 04/28/23 History ascorbic acid (vitamin C) 500 mg 500 mg PO BID 07/30/22 04/28/23 History tablet (Vitamin C) cholecalciferol (vitamin D3) 10 10 mcg PO QAM 07/30/22 04/28/23 History mcg (400 unit) tablet (Vitamin D3) clopidogrel 75 mg tablet 75 mg PO QAM 07/30/22 04/28/23 History dexamethasone 4 mg tablet 8 mg PO WK 07/30/22 04/28/23 History glucosamine-chondroitin 250 mg-200 1 tab PO DAILY 07/30/22 04/28/23 History mg tablet (Osteo Bi-Flex) vitamin E 268 mg (400 unit) capsule 400 mg PO DAILY 07/30/22 04/28/23 History teclistamab-cqyv 90 mg/mL 90 mg subcut UD 11/04/22 04/28/23 History subcutaneous solution (Tecvayli) ferrous fumarate 324 mg (106 mg 324 mg PO DAILY 01/21/23 04/28/23 History iron) tablet loperamide 2 mg tablet 2 mg PO DIRECTED 01/21/23 04/28/23 History prochlorperazine maleate 10 mg 10 mg PO Q6H PRN Nausea 01/21/23 04/28/23 History tablet tramadol 50 mg tablet 50 mg PO Q6H PRN Pain, Severe 01/21/23 04/28/23 History escitalopram oxalate 10 mg tablet 10 mg PO QAM 03/30/23 04/28/23 History ursodiol 300 mg capsule 300 mg PO BID 03/30/23 04/28/23 History amlodipine 5 mg tablet (Norvasc) 5 mg PO QAM 30 days #30 tabs 04/02/23 04/28/23 Rx lisinopril 10 mg tablet 10 mg PO QAM 30 days #30 tabs 04/02/23 04/28/23 Rx cyanocobalamin (vitamin B-12) 1,000 mcg sublingual DAILY 04/28/23 04/28/23 History 1,000 mcg sublingual tablet pantoprazole 40 mg tablet,delayed 40 mg PO DAILY 04/28/23 04/28/23 History release Patient History Medical History History of COVID-19 diagnosed 10/22/21 @ [facility]---fever, sore throat, slight cough, fatigue--no symptoms now Osteoarthritis BPH (benign prostatic hyperplasia) Stroke Mini [id number] -- residual mild short term memory Multiple myeloma Initially dx 2018 - s/p chemo- had been in remission until recently CAD (coronary artery disease) "S/P CABG 4 in 12/2016" RBBB Hypertension Dyslipidemia Carotid artery stenosis (Unknown) Carotid Doppler 11/13/2019 = right ICA 50-69% stenosis, left ICA <50% stenosis Nonruptured cerebral aneurysm (Unknown) "3.3 mm aneurysm extending off the ophthalmic segment of the right ICA Oct 2012 Per [facility] CTA 07/04/17- no change in 3.3 cm aneurysm in ophthalmic segment of right ICA Surgical History History of colonoscopy History of cardiac cath (~12/31/16) @ [facility]--no stents had CABG done History of loop recorder (~05/20/21) Meditronic placed @ [facility] History of vascular access device (~08/26/20) A Port in right jugular History of lumbar spinal fusion History of total right hip replacement H/O rotator cuff surgery S/P CABG x 4 ghs in [place] Family History Other Dementia Myocardial infarction No family history of adverse response to anesthesia Social History Smoking Status: Never smoker Second Hand Exposure: No; Do You Dip or Chew Tobacco: No; Tobacco Cessation Education Requested by Patient: No Hx Alcohol Use: No Hx Substance Use: No Preferred Language: Chinese Communication Ability: Effective Continuous Pillowcase Cutter Required: No Beliefs That Will Affect Care: None marital status: Current Living Situation: Spouse current occupational status: unemployed Other Information That Helps Us Care for You: No Feels Safe at Home: Yes Safety Concerns: Feels Safe At This Time Assistive Devices: Raised Toilet Seat, Walker and Wheelchair Review of Systems Review of Systems: Unobtainable due to cognitive status Physical Exam Physical Exam: Exam not done as patient sitting in chair comfortably Constitutional: WD/WN, vitals as above Results & Data Vital Signs (Past 12 Hours) Vital Signs Temp Pulse Pulse Resp BP Pulse Ox O2 Del Method 05/01/23 08:01 36.5 C 87 18 145/75 H 96 Room Air 05/01/23 06:53 76 05/01/23 04:10 36.6 C 90 20 179/82 H 95 Room Air 04/30/23 22:09 37 C 97 H 18 167/87 H 97 Room Air 04/30/23 22:00 88 Laboratory Results 05/01/23 05/01/23 04/30/23 Range/Units 08:14 05:22 21:20 WBC 3.94 L (4.8-10.8) K/ul RBC 2.49 L (4.70-6.10) M/uL Hgb 7.5 L (14.0-18.0) g/dl Hct 22.8 L (42.0-52.0) % MCV 91.6 (80.0-100.0) fL MCH 30.1 (25.0-34.0) pg MCHC 32.9 (32.0-36.0) g/dL RDW Std Deviation 61.3 H (36.4-46.3) fL RDW Coeff of Kimber 18.6 H (11.5-14.5) % Plt Count 89 L (130-400) K/uL MPV 10.0 (9.4-12.4) fL Immature Gran % (Auto) 0.5 % Neut % (Auto) 61.1 % Lymph % (Auto) 21.6 % [place] % (Auto) 14.2 % Eos % (Auto) 2.3 % Baso % (Auto) 0.3 % Neut # (Auto) 2.41 (1.40-6.50) K/uL Lymph # (Auto) 0.85 L (1.20-3.40) K/uL [place] # (Auto) 0.56 (0.11-0.59) K/uL Eos # (Auto) 0.09 (0.00-0.50) K/uL Baso # (Auto) 0.01 (0.00-0.20) K/uL Immature Gran # (Auto) 0.02 (0.01-0.20) K/uL Absolute Nucleated RBC 0.05 (0.00-0.12) K/uL Nucleated RBC % (auto) 1.3 % Polychromasia 1+ Rouleaux 2+ Sodium 141 (136-145) mmol/L Potassium 3.4 L (3.5-5.1) mmol/L Chloride 111 H (98-107) mmol/L Carbon Dioxide 20 L (21-32) mmol/L Anion Gap 10 (3-11) BUN 12 (6-23) mg/dl Creatinine 1.01 (0.6-1.4) mg/dl Est Cr Clr Drug Dosing 67.7 ml/min Est GFR ( Amer) 85.7 ml/min Est GFR (Non-Af Amer) 74.0 ml/min BUN/Creatinine Ratio 11.9 (10-20) Glucose 140 H (70-99(Fasting)) mg/dl POC Glucose 145 H 120 H (70-99) mg/dl Calcium 7.3 L (8.6-10.3) mg/dl Albumin 2.9 L (3.4-5.0) gm/dl Adenovirus (PCR) (NotDetected) B. pertussis DNA (PCR) (NotDetected) B.parapertussis DNA PCR (NotDetected) C. pneumoniae DNA (PCR) (NotDetected) Coronavirus OC43 (PCR) (NotDetected) Coronavirus HKU1 (PCR) (NotDetected) Coronavirus 229E (PCR) (NotDetected) SARS-CoV-2 (PCR) (NotDetected) Coronavirus NL63 (PCR) (NotDetected) Human Metapneumovir PCR (NotDetected) Influenza Type A (PCR) (NotDetected) Influenza Type B (PCR) (NotDetected) M. pneumoniae (PCR) (NotDetected) Parainfluenza 1 (PCR) (NotDetected) Parainfluenza 2 (PCR) (NotDetected) Parainfluenza 3 (PCR) (NotDetected) Parainfluenza 4 (PCR) (NotDetected) RSV (PCR) (NotDetected) Entero/Rhino (PCR) (NotDetected) 04/30/23 04/30/23 04/30/23 Range/Units 17:08 12:06 08:47 WBC (4.8-10.8) K/ul RBC (4.70-6.10) M/uL Hgb (14.0-18.0) g/dl Hct (42.0-52.0) % MCV (80.0-100.0) fL MCH (25.0-34.0) pg MCHC (32.0-36.0) g/dL RDW Std Deviation (36.4-46.3) fL RDW Coeff of Kimber (11.5-14.5) % Plt Count (130-400) K/uL MPV (9.4-12.4) fL Immature Gran % (Auto) % Neut % (Auto) % Lymph % (Auto) % [place] % (Auto) % Eos % (Auto) % Baso % (Auto) % Neut # (Auto) (1.40-6.50) K/uL Lymph # (Auto) (1.20-3.40) K/uL [place] # (Auto) (0.11-0.59) K/uL Eos # (Auto) (0.00-0.50) K/uL Baso # (Auto) (0.00-0.20) K/uL Immature Gran # (Auto) (0.01-0.20) K/uL Absolute Nucleated RBC (0.00-0.12) K/uL Nucleated RBC % (auto) % Polychromasia Rouleaux Sodium (136-145) mmol/L Potassium (3.5-5.1) mmol/L Chloride (98-107) mmol/L Carbon Dioxide (21-32) mmol/L Anion Gap (3-11) BUN (6-23) mg/dl Creatinine (0.6-1.4) mg/dl Est Cr Clr Drug Dosing ml/min Est GFR ( Amer) ml/min Est GFR (Non-Af Amer) ml/min BUN/Creatinine Ratio (10-20) Glucose (70-99(Fasting)) mg/dl POC Glucose 141 H 111 H (70-99) mg/dl Calcium (8.6-10.3) mg/dl Albumin (3.4-5.0) gm/dl Adenovirus (PCR) Not Detected (NotDetected) B. pertussis DNA (PCR) Not Detected (NotDetected) B.parapertussis DNA PCR Not Detected (NotDetected) C. pneumoniae DNA (PCR) Not Detected (NotDetected) Coronavirus OC43 (PCR) Not Detected (NotDetected) Coronavirus HKU1 (PCR) Not Detected (NotDetected) Coronavirus 229E (PCR) Not Detected (NotDetected) SARS-CoV-2 (PCR) Not Detected (NotDetected) Coronavirus NL63 (PCR) Not Detected (NotDetected) Human Metapneumovir PCR Not Detected (NotDetected) Influenza Type A (PCR) Not Detected (NotDetected) Influenza Type B (PCR) Not Detected (NotDetected) M. pneumoniae (PCR) Not Detected (NotDetected) Parainfluenza 1 (PCR) Not Detected (NotDetected) Parainfluenza 2 (PCR) Not Detected (NotDetected) Parainfluenza 3 (PCR) Not Detected (NotDetected) Parainfluenza 4 (PCR) Not Detected (NotDetected) RSV (PCR) Not Detected (NotDetected) Entero/Rhino (PCR) Not Detected (NotDetected) Diagnostic Findings Chest X-Ray 04/28/23 17:25 SINGLE VIEW CHEST CLINICAL HISTORY: Generalized weakness. FINDINGS: An AP, portable, upright chest radiograph is compared to study dated 04/25/2023. A right internal jugular central venous infusion port is unchanged in position. The patient is status post midline sternotomy. The heart is enlarged noting atherosclerotic calcification of the thoracic. There is pulmonary vascular congestion. Scarring/atelectasis is noted at the lung bases. No airspace consolidation or large pleural effusion is identified. No pneumothorax is seen. The bony thorax is grossly intact. Arthritic change is seen in the shoulders. IMPRESSION: Cardiomegaly with evidence of congestive failure. ACT 112: Negative or not required by law. Electronically signed by: Anastacio Sanabria M.D. 04/28/2023 6:[address] 04/28/23 17:25 CT SCAN OF THE BRAIN WITHOUT IV CONTRAST CLINICAL HISTORY: Change in mental status. COMPARISON STUDY: CT of the brain dated 04/25/2023. TECHNIQUE: Unenhanced axial CT scan of the brain is performed from the vertex to the skull base. A dose lowering technique was utilized adhering to the principles of ALARA. CT DOSE: 547.75 mGy.cm FINDINGS: Brain parenchyma: Foci of right frontal and parietal encephalomalacia are unchanged and consistent with remote insults. There is age-related involutional change noting mild to moderate subcortical and periventricular microangiopathic disease. There is no hemorrhage, mass effect, or evidence of acute territorial ischemia by CT criteria. Cramer-white matter differentiation is preserved. No extra-axial fluid collection is seen. Ventricles, sulci, cisterns: Prominent secondary to involutional change. Intracranial vasculature: There is atherosclerotic calcification of the cavernous carotid and vertebral arteries. Calvarium: Unremarkable. Sinuses and mastoids: The visualized paranasal sinuses are clear. The mastoid air cells are well pneumatized. Orbits: The bony orbits are grossly intact. IMPRESSION: There is no hemorrhage, mass effect, or evidence of acute territorial ischemia by CT criteria. ACT 112: Negative or not required by law. Electronically signed by: Anastacio Sanabria M.D. 04/28/2023 5:55 PM
--- NOTE | 2023-05-01 10:56 | Hospitalist Progress Note ---
Date of Service May 01, 2023 Assessment & Plan (1) Encephalopathy: Plan: ACUTE METABOLIC ENCEPHALOPATHY HISTORY OF DEMENTIA MULTIFACTORIAL: ARF SECONDARY TO DIARRHEAL ILLNESS, HOME LISINOPRIL CONTRIBUTORY RULE OUT C. DIFFICILE COMPLICATED UTI DEHYDRATION CT head: Negative for acute process Blood culture: Pending Urine culture: Pending Continue with IV fluids Follow-up stool panel, C. difficile Continue with IV ceftriaxone 04/30 mental status seems to be improving per urine culture: (+) gram positives blood culture: negative so far stool panel: negative biofire: negative continue IV Ceftri Day # 4 continue IV fluids for now , lower rate ANEMIA Pancytopenia likely secondary to chemotherapy, relapsed multiple myeloma status post HSCT ongoing chemotherapy History of immunoglobulin deficiency No active GI bleed noted so far No hematochezia or melena at home per patient's Check for fecal occult blood test Iron level 60 during last month's admission Hemoglobin 8.5 after 1 unit of packed RBC transfusion 04/30 no signs of melena FOBT pending Hg trended down again 8.1--> 7.[address] Scan Technologist consulted HTN resume Lisinopril continue Amlodipine seems improved this morning continue to monitor PRN Hydralazine hx CAD status post CABG/PVD/CVA hx PSVT, possible TBS given bradycardia on outpatient loop recorder DM2 diet-controlled, reasonable control as of recent hemoglobin A1c of 7.5 last month hyperlipidemia, on statin and ezetimibe Rx Delirium precautions Zyprexa as needed for agitation PT OT eval DVT prophylaxis. SCDs Re: Episodic thrombocytopenia in the setting of chronic pancytopenia DNR as per prior directives as per , Ms. Evelyn Cuenca. Disposition lives at home with anticipate d/c home when medically stable Admission and Anticipated Discharge Date Admission Date: April 28, 2023 Subjective ff up for encephalopathy, etc seen resting in bed, comfortable sleeping but easily awakened feels fine overall no chest pain, dyspnea, palpitations, dizziness no sore throat today no abdominal pain, problems with urination diarrhea resolved no melena/hematochezia mental status improving as per at bedside still not 100% back to baseline Review of Systems Review of Systems: all noted and negative except for above Physical Exam Physical Exam: General- oriented x 2, not in distress, speaks in sentences with no effort or accessory muscle use Eyes- anicteric Neck- no JVD Lungs- clear breath sounds bilaterally, no crackles or wheezing Heart- normal rate, regular rhythm; no murmurs Abdomen- normal bowel sounds, nondistended, soft, nontender no CVA tenderness Extremities- no pretibial edema, no calf tenderness Neuro- alert, oriented x 2; no gross focal neurologic deficits Skin- warm & dry Results & Data Results & Data Vital Signs (Past 12 Hours) Vital Signs Temp Pulse Pulse Resp BP Pulse Ox O2 Del Method 05/01/23 08:01 36.5 C 87 18 145/75 H 96 Room Air 05/01/23 06:53 76 05/01/23 04:10 36.6 C 90 20 179/82 H 95 Room Air 04/30/23 22:09 37 C 97 H 18 167/87 H 97 Room Air 04/30/23 22:00 88 all noted and reviewed including below
[2023-05-01] MEDS: hydrALAZINE HCL 20 MG/ML VIAL IV ONE (12:15)
--- NOTE | 2023-05-01 12:45 | Oncology Consultation ---
Date of Consultation May 01, 2023 Assessment & Plan (1) Multiple myeloma: At this point I do not have up-to-date records from his medical oncology office. We will try to arrange for those records to understand the latest treatment as well as the latest state of his myeloma. Per his it seems he has been relapsing on recent maintenance and he was to be switched over to a different line of therapy. Based of my discussion with his he was to be started on Ninlaro. However I cannot be sure. We will try to obtain those records. As far as myeloma is concerned, the patient does not need any urgent intervention or treatment from a myeloma standpoint. He is scheduled to meet one of my [facility] colleagues later the coming week. I would recommend that he keep those appointments. His multiple myeloma can be managed on an outpatient basis once the patient is discharged while resuming normal therapy at [facility]. If that includes daratumumab/Ninlaro or daratumumab selinexor or I will continue him on treatment per his regular oncologist. Continue outpatient evaluation of labs including IgA level since his myeloma is of IgA subtype (2) Pancytopenia: Pancytopenia could be a result of progressive myeloma or result of myeloma directed therapy. As noted above I will try to obtain records from his primary oncologist office to understand the cause for pancytopenia. Would like to establish transfusion parameters which will include transfusion of packed red blood cells if the hemoglobin is less than 7 g/dL and transfusion of platelets with a platelet count is less than 10,000/mcL or if he is actively bleeding. Continue any outpatient prophylactic antibiotics if it has been instituted by his primary oncologist Plan Thank you for this interesting oncological consult. Medical oncology will continue to follow the patient and make appropriate recommendations. History of Present Illness Reason for Consultation: IgA Multiple myeloma pancytopenia Attending Physician: Patel Figueroa MD History of Present Illness The patient is a very pleasant 72-year-old man with a longstanding history of multiple myeloma who underwent stem cell transplant at [facility] in 2018. He initially received Velcade, Revlimid, dexamethasone followed by an autologous stem cell transplantation in 2018. Subsequently he was started on maintenance therapy. He has been on different lines of treatment. He has received Darzalex fas pro for maintenance, most recently he was on Darzalex pomalidomide and Xgeva, subsequently switched to daratumumab, selinexor at one point. He is being followed by one of my medical oncology colleagues at [facility], Dr. Wilson. Because of his autologus transplant he follows Dr. Cox at [facility]. I do not have his up-to-date clinical records however on my review with his it seems that the patient has relapsed again while being on daratumumab, pomalidomide. He is to be started on next line which was toinclude an oral proteasome inhibitor; Ninlaro. His tells me that he was supposed to get Ninlaro next week followed by a visit to [facility]. They seem to be an underlying concern for dementia, however the patient presented to [facility] with encephalopathy. During my visit the patient was sitting in a chair, having lunch with his . He was not able to relay any of his concerns however most of my questions were answered by his . The patient reported no fever chills night sweats. Reported no nausea or vomiting. He was able to eat his food well. His informs me that there may be some concerns of dementia Allergies Allergy/AdvReac Type Severity Reaction Status Date / Time No Known Allergies Allergy Verified 04/25/23 21:42 Home Medications Medication Instructions Recorded Confirmed Type Lactobacillus acidoph-L.bulgaricus 1 tab PO TID 12/04/17 04/28/23 History 1 million cell tablet (Floranex) calcium carbonate 600 mg-vitamin 1 tab PO BID 12/04/17 04/28/23 History D3 20 mcg (800 unit) tablet (Caltrate with Vitamin D3) clobetasol 0.05 % shampoo 1 applic topical DAILY PRN Skin 12/04/17 04/28/23 History Irritation ezetimibe 10 mg tablet (Zetia) 10 mg PO QAM 12/04/17 04/28/23 History finasteride 5 mg tablet (Proscar) 5 mg PO QAM 12/04/17 04/28/23 History rosuvastatin 40 mg tablet (Crestor) 20 mg PO QAM 12/04/17 04/28/23 History tamsulosin 0.4 mg capsule (Flomax) 0.4 mg PO QAM 12/04/17 04/28/23 History vit A 300 mcg-C 200 mg-E 27 1 tab PO QAM 12/04/17 04/28/23 History mg-lutein 2 mg and minerals tablet (Vision Formula (with lutein)) acyclovir 400 mg tablet 400 mg PO AMHS 07/26/21 04/28/23 History diphenoxylate-atropine 2.5 1 tab PO QID PRN Diarrhea 04/19/22 04/28/23 History mg-0.025 mg tablet ondansetron HCl 8 mg tablet 8 mg PO Q8 PRN Nausea 04/19/22 04/28/23 History ascorbic acid (vitamin C) 500 mg 500 mg PO BID 07/30/22 04/28/23 History tablet (Vitamin C) cholecalciferol (vitamin D3) 10 10 mcg PO QAM 07/30/22 04/28/23 History mcg (400 unit) tablet (Vitamin D3) clopidogrel 75 mg tablet 75 mg PO QAM 07/30/22 04/28/23 History dexamethasone 4 mg tablet 8 mg PO WK 07/30/22 04/28/23 History glucosamine-chondroitin 250 mg-200 1 tab PO DAILY 07/30/22 04/28/23 History mg tablet (Osteo Bi-Flex) vitamin E 268 mg (400 unit) capsule 400 mg PO DAILY 07/30/22 04/28/23 History teclistamab-cqyv 90 mg/mL 90 mg subcut UD 11/04/22 04/28/23 History subcutaneous solution (Tecvayli) ferrous fumarate 324 mg (106 mg 324 mg PO DAILY 01/21/23 04/28/23 History iron) tablet loperamide 2 mg tablet 2 mg PO DIRECTED 01/21/23 04/28/23 History prochlorperazine maleate 10 mg 10 mg PO Q6H PRN Nausea 01/21/23 04/28/23 History tablet tramadol 50 mg tablet 50 mg PO Q6H PRN Pain, Severe 01/21/23 04/28/23 History escitalopram oxalate 10 mg tablet 10 mg PO QAM 03/30/23 04/28/23 History ursodiol 300 mg capsule 300 mg PO BID 03/30/23 04/28/23 History amlodipine 5 mg tablet (Norvasc) 5 mg PO QAM 30 days #30 tabs 04/02/23 04/28/23 Rx lisinopril 10 mg tablet 10 mg PO QAM 30 days #30 tabs 04/02/23 04/28/23 Rx cyanocobalamin (vitamin B-12) 1,000 mcg sublingual DAILY 04/28/23 04/28/23 History 1,000 mcg sublingual tablet pantoprazole 40 mg tablet,delayed 40 mg PO DAILY 04/28/23 04/28/23 History release Patient History Medical History History of COVID-19 diagnosed 10/22/21 @ [facility]---fever, sore throat, slight cough, fatigue--no symptoms now Osteoarthritis BPH (benign prostatic hyperplasia) Stroke Mini [id number] -- residual mild short term memory Multiple myeloma Initially dx 2018 - s/p chemo- had been in remission until recently CAD (coronary artery disease) "S/P CABG 4 in 12/2016" RBBB Hypertension Dyslipidemia Carotid artery stenosis (Unknown) Carotid Doppler 11/13/2019 = right ICA 50-69% stenosis, left ICA <50% stenosis Nonruptured cerebral aneurysm (Unknown) "3.3 mm aneurysm extending off the ophthalmic segment of the right ICA Oct 2012 Per [facility] 07/04/17- no change in 3.3 cm aneurysm in ophthalmic segment of right ICA Surgical History History of colonoscopy History of cardiac cath (~12/31/16) @ [facility]--no stents had CABG done History of loop recorder (~05/20/21) Meditronic placed @ [facility] History of vascular access device (~08/26/20) A Port in right jugular History of lumbar spinal fusion History of total right hip replacement H/O rotator cuff surgery S/P CABG x 4 ghs in [place] Family History Other Dementia Myocardial infarction No family history of adverse response to anesthesia Social History Smoking Status: Never smoker Second Hand Exposure: No; Do You Dip or Chew Tobacco: No; Tobacco Cessation Education Requested by Patient: No Hx Alcohol Use: No Hx Substance Use: No Preferred Language: Italian Communication Ability: Effective Yoga Instructor Required: No Beliefs That Will Affect Care: None marital status: Current Living Situation: Spouse current occupational status: unemployed Other Information That Helps Us Care for You: No Feels Safe at Home: Yes Safety Concerns: Feels Safe At This Time Assistive Devices: Raised Toilet Seat, Walker and Wheelchair Results & Data Vital Signs (Past 12 Hours) Vital Signs Temp Pulse Pulse Resp BP Pulse Ox O2 Del Method 05/01/23 11:38 36.6 C 79 20 192/95 H 99 Room Air 05/01/23 08:01 36.5 C 87 18 145/75 H 96 Room Air 05/01/23 06:53 76 05/01/23 04:10 36.6 C 90 20 179/82 H 95 Room Air
[2023-05-01] MEDS: LOPERAMIDE HCL 2 MG CAP PO PRN (14:35)
--- NOTE | 2023-05-01 20:20 | Communication Note ---
Date of Service: May 01, 2023 Made aware by RN of uncontrolled blood pressure. SBP 150-190s the last 36 hours. Patient asymptomatic as per RN. Pleasantly confused as per RN. AP Hypertensive urgency Home lisinopril held during admission due to kidney dysfunction Creatinine this morning within normal limits Resume home lisinopril at lower dose and titrate as needed. Will relay to AM provider.
[2023-05-01] MEDS: hydrALAZINE HCL 20 MG/ML VIAL IV PRN (20:59)
[2023-05-01] MEDS: lisinopril 5 MG TAB PO SCH (23:15)
[2023-05-02 06:38] LABS: Basophils # (auto) 0.02 K/uL (0.00-0.20); Basophils % (auto) 0.5 %; Eosinophils # (auto) 0.11 K/uL (0.00-0.50); Eosinophils % (auto) 2.6 %; Hematocrit (blood only) 23.3 % (42.0-52.0); Hemoglobin 7.6 g/dl (14.0-18.0); Immature Granulocytes # (auto) 0.04 K/uL (0.01-0.20); Lymphocytes # (auto) 0.98 K/uL (1.20-3.40); Lymphocytes % (auto) 23.6 %; Mean Corpuscular Hemoglobin 29.9 pg (25.0-34.0); Mean Corpuscular Hgb Conc 32.6 g/dL (32.0-36.0); Mean Corpuscular Volume 91.7 fL (80.0-100.0); Mean Platelet Volume 9.5 fL (9.4-12.4); Monocytes # (auto) 0.45 K/uL (0.11-0.59); Monocytes % (auto) 10.8 %; Neutrophils # (auto) 2.56 K/uL (1.40-6.50); Neutrophils % (auto) 61.5 %; Nucleated RBC # (auto) 0.03 K/uL (0.00-0.12); Nucleated RBC % (auto) 0.7 %; Platelet Count 87 K/uL (130-400); RDW Coefficient of Variation 18.3 % (11.5-14.5); RDW Standard Deviation 59.7 fL (36.4-46.3); Red Blood Count 2.54 M/uL (4.70-6.10); White Blood Count 4.16 K/ul (4.8-10.8)
[2023-05-02 07:07] LABS: Polychromasia 1+; Rouleaux 2+
[2023-05-02 07:17] LABS: BUN Creatinine Ratio 11.1 (10-20); Calcium 7.3 mg/dl (8.6-10.3); Est GFR (African American) 87.8 ml/min; Est GFR (Non-African American) 75.8 ml/min; Potassium 3.8 mmol/L (3.5-5.1)
--- NOTE | 2023-05-02 08:42 | Gastroenterology Progress Note ---
Date of Service May 02, 2023 Assessment & Plan Admission and Anticipated Discharge Date Admission Date: April 28, 2023 Supervising Physician Co-Signing Physician Notes I personally saw and evaluated the patient on 05/02/2023 with MIRANDA Hernandez and agree with her findings and plan of care. Abdomen soft and non-tender. 72 y/o M with history of multiple myeloma, pancytopenia, chronic admitted admitted with confusion and GI consulted for anemia. hgb here running 7-8 which is around his baseline as outpatient. He has had no evidence of melena, hematemesis, or hematochezia. He is having brown stools here. Suspect this is related to his myeloma and known pancytopenia. Offered outpatient EGD and colonoscopy however states that patient does not want anything done anymore and that his outpatient principal systems architect through [facility] has connected them with palliative care. does not want any outpatient scopes ordered at this time as she does not think he can go through with them and may be stopping all treatments after they discuss. If patient wishes to pursue full care after discussion with palliative his outpatient principal systems architect or PCP can order him EGD/colonoscopy. Continue to trend H/H and transfuse for hgb <7. GI will sign off but please call back with questions. Jayne Connor, Gastroenterology and Hepatology Subjective Attempted to follow up with patient. Family notes he just fell asleep and not to wake. History reported by family. Notes that he has been moving bowels well. Diarrhea resolved. No black or bloody stools reported. Physical Exam Constitutional: WD/WN, vitals as above Gastrointestinal (Abdomen): Percussion/Palpation: abdomen soft Skin: no rashes, warm and dry Results & Data Vital Signs (Past 12 Hours) Vital Signs Temp Pulse Pulse Resp BP BP Pulse Ox 05/02/23 07:17 37.1 C 76 18 163/83 H 95 05/02/23 04:57 37.1 C 76 16 133/81 94 05/02/23 00:31 90 05/01/23 23:16 37.3 C 91 H 18 110/65 95 O2 Del Method 05/02/23 07:17 Room Air 05/02/23 04:57 Room Air 05/02/23 00:31 05/01/23 23:16 Room Air Laboratory Results 05/02/23 05/02/23 05/01/23 Range/Units 07:52 06:16 Unknown WBC 4.16 L (4.8-10.8) K/ul RBC 2.54 L (4.70-6.10) M/uL Hgb 7.6 L (14.0-18.0) g/dl Hct 23.3 L (42.0-52.0) % MCV 91.7 (80.0-100.0) fL MCH 29.9 (25.0-34.0) pg MCHC 32.6 (32.0-36.0) g/dL RDW Std Deviation 59.7 H (36.4-46.3) fL RDW Coeff of Kimber 18.3 H (11.5-14.5) % Plt Count 87 L (130-400) K/uL MPV 9.5 (9.4-12.4) fL Immature Gran % (Auto) 1.0 % Neut % (Auto) 61.5 % Lymph % (Auto) 23.6 % Hartley % (Auto) 10.8 % Eos % (Auto) 2.6 % Baso % (Auto) 0.5 % Neut # (Auto) 2.56 (1.40-6.50) K/uL Lymph # (Auto) 0.98 L (1.20-3.40) K/uL Hartley # (Auto) 0.45 (0.11-0.59) K/uL Eos # (Auto) 0.11 (0.00-0.50) K/uL Baso # (Auto) 0.02 (0.00-0.20) K/uL Immature Gran # (Auto) 0.04 (0.01-0.20) K/uL Absolute Nucleated RBC 0.03 (0.00-0.12) K/uL Nucleated RBC % (auto) 0.7 % Polychromasia 1+ Rouleaux 2+ Sodium 141 (136-145) mmol/L Potassium 3.8 (3.5-5.1) mmol/L Chloride 111 H (98-107) mmol/L Carbon Dioxide 19 L (21-32) mmol/L Anion Gap 11 (3-11) BUN 11 (6-23) mg/dl Creatinine 0.99 (0.6-1.4) mg/dl Est Cr Clr Drug Dosing 69.0 ml/min Est GFR ( Amer) 87.8 ml/min Est GFR (Non-Af Amer) 75.8 ml/min BUN/Creatinine Ratio 11.1 (10-20) Glucose 97 (70-99(Fasting)) mg/dl POC Glucose 109 H (70-99) mg/dl Calcium 7.3 L (8.6-10.3) mg/dl Albumin (3.4-5.0) gm/dl Stool Occult Bld Scrn Positive A (Negative) 05/01/23 05/01/23 05/01/23 Range/Units 20:08 17:13 11:58 WBC (4.8-10.8) K/ul RBC (4.70-6.10) M/uL Hgb (14.0-18.0) g/dl Hct (42.0-52.0) % MCV (80.0-100.0) fL MCH (25.0-34.0) pg MCHC (32.0-36.0) g/dL RDW Std Deviation (36.4-46.3) fL RDW Coeff of Kimber (11.5-14.5) % Plt Count (130-400) K/uL MPV (9.4-12.4) fL Immature Gran % (Auto) % Neut % (Auto) % Lymph % (Auto) % Hartley % (Auto) % Eos % (Auto) % Baso % (Auto) % Neut # (Auto) (1.40-6.50) K/uL Lymph # (Auto) (1.20-3.40) K/uL Hartley # (Auto) (0.11-0.59) K/uL Eos # (Auto) (0.00-0.50) K/uL Baso # (Auto) (0.00-0.20) K/uL Immature Gran # (Auto) (0.01-0.20) K/uL Absolute Nucleated RBC (0.00-0.12) K/uL Nucleated RBC % (auto) % Polychromasia Rouleaux Sodium (136-145) mmol/L Potassium (3.5-5.1) mmol/L Chloride (98-107) mmol/L Carbon Dioxide (21-32) mmol/L Anion Gap (3-11) BUN (6-23) mg/dl Creatinine (0.6-1.4) mg/dl Est Cr Clr Drug Dosing ml/min Est GFR ( Amer) ml/min Est GFR (Non-Af Amer) ml/min BUN/Creatinine Ratio (10-20) Glucose (70-99(Fasting)) mg/dl POC Glucose 114 H 118 H 175 H (70-99) mg/dl Calcium (8.6-10.3) mg/dl Albumin (3.4-5.0) gm/dl Stool Occult Bld Scrn (Negative) 05/01/23 Range/Units 05:22 WBC (4.8-10.8) K/ul RBC (4.70-6.10) M/uL Hgb (14.0-18.0) g/dl Hct (42.0-52.0) % MCV (80.0-100.0) fL MCH (25.0-34.0) pg MCHC (32.0-36.0) g/dL RDW Std Deviation (36.4-46.3) fL RDW Coeff of Kimber (11.5-14.5) % Plt Count (130-400) K/uL MPV (9.4-12.4) fL Immature Gran % (Auto) % Neut % (Auto) % Lymph % (Auto) % Hartley % (Auto) % Eos % (Auto) % Baso % (Auto) % Neut # (Auto) (1.40-6.50) K/uL Lymph # (Auto) (1.20-3.40) K/uL Hartley # (Auto) (0.11-0.59) K/uL Eos # (Auto) (0.00-0.50) K/uL Baso # (Auto) (0.00-0.20) K/uL Immature Gran # (Auto) (0.01-0.20) K/uL Absolute Nucleated RBC (0.00-0.12) K/uL Nucleated RBC % (auto) % Polychromasia Rouleaux Sodium (136-145) mmol/L Potassium (3.5-5.1) mmol/L Chloride (98-107) mmol/L Carbon Dioxide (21-32) mmol/L Anion Gap (3-11) BUN (6-23) mg/dl Creatinine (0.6-1.4) mg/dl Est Cr Clr Drug Dosing ml/min Est GFR ( Amer) ml/min Est GFR (Non-Af Amer) ml/min BUN/Creatinine Ratio (10-20) Glucose (70-99(Fasting)) mg/dl POC Glucose (70-99) mg/dl Calcium (8.6-10.3) mg/dl Albumin 2.9 L (3.4-5.0) gm/dl Stool Occult Bld Scrn (Negative)
[2023-05-02] MEDS: lisinopril 5 MG TAB PO SCH (11:03)
--- NOTE | 2023-05-02 12:05 | Discharge Summary ---
Discharge Summary Date of Service May 02, 2023 Notes For Next Care Provider Medication Changes From Visit Augmentin twice daily Admission HPI Per Admitting Provider History obtained from patient, family, and records. Limited history from patient secondary to dementia. Medical history significant for CAD status post CABG, PVD, CVA, PSVT, hypertension, hyperlipidemia, BPH, DM2 diet-controlled, pancytopenia, hx chronic anemia (baseline hemoglobin 8), dementia, relapsed multiple myeloma status post HSCT ongoing chemotherapy, immunoglobulin deficiency. Recent confinement last month for encephalopathy attributed to uncontrolled hypertension and mild clinical dehydration. Patient discharged on lisinopril and amlodipine medications. Agitation during confinement requiring as needed Zyprexa. Hemoglobin decreased to 7 during confinement requiring 1 unit PRBC. FOBT positive without melena/hematochezia. Patient discharged on Protonix twice daily. Intermittent watery diarrhea symptoms without abdominal pain prior to leaving hospital. Stool workup from last month negative for infectious causes. Patient discharged on antidiarrheal medications. Recent ER visit 3 days ago for confusion. Patient discharged home after unremarkable workup results at the ER. Patient found by to be more confused than usual today. Not eating a lot the last few days. No chest pain, SOB, abdominal pain, flank pain, UTI complaints. On and off diarrhea symptoms. Patient brought to the ER for evaluation. IV ceftriaxone administered at the ER for possible UTI. 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[employer] Admission Exam Per Admitting Provider GENERAL: Demented, pleasant, no respiratory distress SKIN: Pallor, warm HEENT: Pale palpebral conjunctivae, no ptosis, dry buccal mucosa NECK : Supple, no tenderness CHEST : CTA, no tenderness HEART : RRR, no obvious murmurs ABDOMEN: Some distention, nontender EXTREMITIES : No LE swelling/tenderness, no other conspicuous deformities noted NEUROLOGIC : demented, no facial asymmetry, gait and stance not assessed Principal Dx & Hospital Course #1 = Principal Diagnosis (1) Encephalopathy: ACUTE METABOLIC ENCEPHALOPATHY HISTORY OF DEMENTIA MULTIFACTORIAL: ARF SECONDARY TO DIARRHEAL ILLNESS, HOME LISINOPRIL CONTRIBUTORY RULE OUT C. DIFFICILE COMPLICATED UTI DEHYDRATION CT head: Negative for acute process Blood culture: Negative Urine culture: Gram-positive cocci, gram-positive bacilli Stool panel, C. difficile: Negative BioFire: Negative Given IV fluids Given empiric IV ceftriaxone x 4 days Patient responded well with IV fluids and IV ceftriaxone Gradually improved daily, back to baseline mental status per on discharge today Continue with a few day course of p.o. 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 consulted: Recommend to maintain hemoglobin above 7, no acute intervention for multiple myeloma at this point, follow-up with usual pot fireman Patient's has verbalized to providers and case mgr interested in referral to palliative care service Please assist with the referral on follow-up visit with PCP HTN Continue lisinopril and amlodipine hx CAD status post CABG/PVD/CVA hx PSVT, possible TBS given bradycardia on outpatient loop recorder DM2 diet-controlled, reasonable control as of recent hemoglobin A1c of 7.5 last month hyperlipidemia, on statin and ezetimibe Rx Delirium precautions Zyprexa as needed for agitation PT OT eval DVT prophylaxis. SCDs Re: Episodic thrombocytopenia in the setting of chronic pancytopenia DNR as per prior directives as per , Ms. Evelyn Cuenca. Disposition DC home PCP follow-up in 1 week Discharge Exam General- oriented x 2, not in distress, speaks in sentences with no effort or accessory muscle use Eyes- anicteric Neck- no JVD Lungs- clear breath sounds bilaterally, no rales/wheezes Heart- normal rate, regular rhythm; no murmurs Abdomen- normal bowel sounds, nondistended, soft, nontender Extremities- no pretibial edema, no calf tenderness Neuro- alert, oriented x 2; no gross focal neurologic deficits Skin- warm & dry Updated Medication List Medication Instructions Recorded Confirmed Type Lactobacillus acidoph-L.bulgaricus 1 tab PO TID 12/04/17 04/28/23 History 1 million cell tablet (Floranex) calcium carbonate 600 mg-vitamin 1 tab PO BID 12/04/17 04/28/23 History D3 20 mcg (800 unit) tablet (Caltrate with Vitamin D3) clobetasol 0.05 % shampoo 1 applic topical DAILY PRN Skin 12/04/17 04/28/23 History Irritation ezetimibe 10 mg tablet (Zetia) 10 mg PO QAM 12/04/17 04/28/23 History finasteride 5 mg tablet (Proscar) 5 mg PO QAM 12/04/17 04/28/23 History rosuvastatin 40 mg tablet (Crestor) 20 mg PO QAM 12/04/17 04/28/23 History tamsulosin 0.4 mg capsule (Flomax) 0.4 mg PO QAM 12/04/17 04/28/23 History vit A 300 mcg-C 200 mg-E 27 1 tab PO QAM 12/04/17 04/28/23 History mg-lutein 2 mg and minerals tablet (Vision Formula (with lutein)) acyclovir 400 mg tablet 400 mg PO AMHS 07/26/21 04/28/23 History diphenoxylate-atropine 2.5 1 tab PO QID PRN Diarrhea 04/19/22 04/28/23 History mg-0.025 mg tablet ondansetron HCl 8 mg tablet 8 mg PO Q8 PRN Nausea 04/19/22 04/28/23 History ascorbic acid (vitamin C) 500 mg 500 mg PO BID 07/30/22 04/28/23 History tablet (Vitamin C) cholecalciferol (vitamin D3) 10 10 mcg PO QAM 07/30/22 04/28/23 History mcg (400 unit) tablet (Vitamin D3) clopidogrel 75 mg tablet 75 mg PO QAM 07/30/22 04/28/23 History dexamethasone 4 mg tablet 8 mg PO WK 07/30/22 04/28/23 History glucosamine-chondroitin 250 mg-200 1 tab PO DAILY 07/30/22 04/28/23 History mg tablet (Osteo Bi-Flex) vitamin E 268 mg (400 unit) capsule 400 mg PO DAILY 07/30/22 04/28/23 History teclistamab-cqyv 90 mg/mL 90 mg subcut UD 11/04/22 04/28/23 History subcutaneous solution (Tecvayli) ferrous fumarate 324 mg (106 mg 324 mg PO DAILY 01/21/23 04/28/23 History iron) tablet loperamide 2 mg tablet 2 mg PO DIRECTED 01/21/23 04/28/23 History prochlorperazine maleate 10 mg 10 mg PO Q6H PRN Nausea 01/21/23 04/28/23 History tablet tramadol 50 mg tablet 50 mg PO Q6H PRN Pain, Severe 01/21/23 04/28/23 History escitalopram oxalate 10 mg tablet 10 mg PO QAM 03/30/23 04/28/23 History ursodiol 300 mg capsule 300 mg PO BID 03/30/23 04/28/23 History amlodipine 5 mg tablet (Norvasc) 5 mg PO QAM 30 days #30 tabs 04/02/23 04/28/23 Rx lisinopril 10 mg tablet 10 mg PO QAM 30 days #30 tabs 04/02/23 04/28/23 Rx cyanocobalamin (vitamin B-12) 1,000 mcg sublingual DAILY 04/28/23 04/28/23 History 1,000 mcg sublingual tablet pantoprazole 40 mg tablet,delayed 40 mg PO DAILY 04/28/23 04/28/23 History release amoxicillin 875 mg-potassium 1 tab PO BID 4 days #8 tabs 05/02/23 Rx clavulanate 125 mg tablet Hospital Stay Data Consultations 04/28/23 19:54 ED Decision to Admit Stat 05/01/23 08:36 Consult Gastroenterology Routine Consult Hematology Routine Diagnostic Imagining Performed Laboratory Results WBC 4.16 K/ul (4.8-10.8) L 05/02/23 06:16 RBC 2.54 M/uL (4.70-6.10) L 05/02/23 06:16 Hgb 7.6 g/dl (14.0-18.0) L 05/02/23 06:16 Hct 23.3 % (42.0-52.0) L 05/02/23 06:16 MCV 91.7 fL (80.0-100.0) 05/02/23 06:16 MCH 29.9 pg (25.0-34.0) 05/02/23 06:16 MCHC 32.6 g/dL (32.0-36.0) 05/02/23 06:16 RDW Std Deviation 59.7 fL (36.4-46.3) H 05/02/23 06:16 RDW Coeff of Kimber 18.3 % (11.5-14.5) H 05/02/23 06:16 Plt Count 87 K/uL (130-400) L 05/02/23 06:16 MPV 9.5 fL (9.4-12.4) 05/02/23 06:16 Immature Gran % (Auto) 1.0 % 05/02/23 06:16 Neut % (Auto) 61.5 % 05/02/23 06:16 Lymph % (Auto) 23.6 % 05/02/23 06:16 [place] % (Auto) 10.8 % 05/02/23 06:16 Eos % (Auto) 2.6 % 05/02/23 06:16 Baso % (Auto) 0.5 % 05/02/23 06:16 Neut # (Auto) 2.56 K/uL (1.40-6.50) 05/02/23 06:16 Lymph # (Auto) 0.98 K/uL (1.20-3.40) L 05/02/23 06:16 [place] # (Auto) 0.45 K/uL (0.11-0.59) 05/02/23 06:16 Eos # (Auto) 0.11 K/uL (0.00-0.50) 05/02/23 06:16 Baso # (Auto) 0.02 K/uL (0.00-0.20) 05/02/23 06:16 Immature Gran # (Auto) 0.04 K/uL (0.01-0.20) 05/02/23 06:16 Absolute Nucleated RBC 0.03 K/uL (0.00-0.12) 05/02/23 06:16 Nucleated RBC % (auto) 0.7 % 05/02/23 06:16 Polychromasia 1+ 05/02/23 06:16 Tear Drop Cells 1+ 04/28/23 15:52 Ovalocytes 1+ 04/28/23 15:52 Rouleaux 2+ 05/02/23 06:16 Sodium 141 mmol/L (136-145) 05/02/23 06:16 Potassium 3.8 mmol/L (3.5-5.1) 05/02/23 06:16 Chloride 111 mmol/L (98-107) H 05/02/23 06:16 Carbon Dioxide 19 mmol/L (21-32) L 05/02/23 06:16 Anion Gap 11 (3-11) 05/02/23 06:16 BUN 11 mg/dl (6-23) 05/02/23 06:16 Creatinine 0.99 mg/dl (0.6-1.4) 05/02/23 06:16 Est Cr Clr Drug Dosing 69.0 ml/min 05/02/23 06:16 Est GFR ( Amer) 87.8 ml/min 05/02/23 06:16 Est GFR (Non-Af Amer) 75.8 ml/min 05/02/23 06:16 BUN/Creatinine Ratio 11.1 (10-20) 05/02/23 06:16 Glucose 97 mg/dl (70-99(Fasting)) 05/02/23 06:16 POC Glucose 113 mg/dl (70-99) H 05/02/23 11:32 Calcium 7.3 mg/dl (8.6-10.3) L 05/02/23 06:16 Magnesium 2.1 mg/dl (1.7-2.4) 04/28/23 15:52 Total Bilirubin 0.4 mg/dl (0.2-1.0) 04/28/23 15:52 AST 22 U/L (13-39) 04/28/23 15:52 ALT 13 U/L (7-52) 04/28/23 15:52 Alkaline Phosphatase 38 U/L (34-104) 04/28/23 15:52 Lactate Dehydrogenase 130 U/L (86-244) 04/28/23 15:52 Troponin I High Sens 11.4 pg/ml (0-20) 04/28/23 15:52 Total Protein 9.0 gm/dl (6.0-8.3) H 04/28/23 15:52 Albumin 2.9 gm/dl (3.4-5.0) L 05/01/23 05:22 Globulin 5.8 gm/dl (2.5-4.0) H 04/28/23 15:52 Albumin/Globulin Ratio 0.6 (0.9-2) L 04/28/23 15:52 TSH 2.983 uIu/ml (0.300-4.500) 04/28/23 15:52 Urine Color Yellow 04/28/23 18:20 Urine Appearance Clear (Clear) 04/28/23 18:20 Urine pH 6.5 (4.5-7.5) 04/28/23 18:20 Ur Specific [place] 1.008 (1.000-1.030) 04/28/23 18:20 Urine Protein Trace (Negative) H 04/28/23 18:20 Urine Glucose (UA) Negative (Negative) 04/28/23 18:20 Urine Ketones Negative (Negative) 04/28/23 18:20 Urine Blood Trace (Negative) H 04/28/23 18:20 Urine Nitrite Negative (Negative) 04/28/23 18:20 Urine Bilirubin Negative (Negative) 04/28/23 18:20 Urine Urobilinogen Negative (Negative) 04/28/23 18:20 Ur Leukocyte Esterase Negative (Negative) 04/28/23 18:20 Urine WBC (Auto) 10-30 /hpf (0-5) H 04/28/23 18:20 Urine RBC (Auto) 0-4 /hpf (0-4) 04/28/23 18:20 U Hyaline Cast (Auto) 1-5 /lpf (0-5) 04/28/23 18:20 U Epithel Cells (Auto) >30 /lpf (0-5) H 04/28/23 18:20 Urine Bacteria (Auto) 1+ (Negative) H 04/28/23 18:20 Ur Renal Epithelial Cell Not Reportable 04/28/23 18:20 Stool Occult Bld Scrn Positive (Negative) A 05/01/23 Unknown Stl C. cayetanensis PCR Not Detected (NotDetected) 04/29/23 16:55 Stool Rotavirus A PCR Not Detected (NotDetected) 04/29/23 16:55 Stl Adenov F 40/41 PCR Not Detected (NotDetected) 04/29/23 16:55 Stool Astrovirus (PCR) Not Detected (NotDetected) 04/29/23 16:55 Stool Campylobacter PCR Not Detected (NotDetected) 04/29/23 16:55 Stl C. diff Tox B Gene Negative Cdiff Gene (Neg) 04/29/23 16:55 Stool Cryptosporidium PCR Not Detected (NotDetected) 04/29/23 16:55 Stl E.coli Shiga Tox PCR Not Detected (NotDetected) 04/29/23 16:55 Stl Enterotoxigenic E PCR Not Detected (NotDetected) 04/29/23 16:55 Stool EPEC (PCR) Not Detected (NotDetected) 04/29/23 16:55 Stool EAEC (PCR) Not Detected (NotDetected) 04/29/23 16:55 Stl E. histolytica PCR Not Detected (NotDetected) 04/29/23 16:55 Stool Giardia Lamblia PCR Not Detected (NotDetected) 04/29/23 16:55 Stool Salmonella PCR Not Detected (NotDetected) 04/29/23 16:55 Stool Sapovirus (PCR) Not Detected (NotDetected) 04/29/23 16:55 Stl P. shigelloides PCR Not Detected (NotDetected) 04/29/23 16:55 Stl Shigella/EIEC PCR Not Detected (NotDetected) 04/29/23 16:55 St Y.enterocolitica PCR Not Detected (NotDetected) 04/29/23 16:55 Stool Vibrio (PCR) Not Detected (NotDetected) 04/29/23 16:55 Stl Vibrio cholerae PCR Not Detected (NotDetected) 04/29/23 16:55 Stl Norovirus GI/GII PCR Not Detected (NotDetected) 04/29/23 16:55 Adenovirus (PCR) Not Detected (NotDetected) 04/30/23 08:47 B. pertussis DNA (PCR) Not Detected (NotDetected) 04/30/23 08:47 B.parapertussis DNA PCR Not Detected (NotDetected) 04/30/23 08:47 C. pneumoniae DNA (PCR) Not Detected (NotDetected) 04/30/23 08:47 Coronavirus OC43 (PCR) Not Detected (NotDetected) 04/30/23 08:47 Coronavirus HKU1 (PCR) Not Detected (NotDetected) 04/30/23 08:47 Coronavirus 229E (PCR) Not Detected (NotDetected) 04/30/23 08:47 SARS-CoV-2 (PCR) Not Detected (NotDetected) 04/30/23 08:47 Coronavirus NL63 (PCR) Not Detected (NotDetected) 04/30/23 08:47 Human Metapneumovir PCR Not Detected (NotDetected) 04/30/23 08:47 Influenza Type A (PCR) Not Detected (NotDetected) 04/30/23 08:47 Influenza Type B (PCR) Not Detected (NotDetected) 04/30/23 08:47 M. pneumoniae (PCR) Not Detected (NotDetected) 04/30/23 08:47 Parainfluenza 1 (PCR) Not Detected (NotDetected) 04/30/23 08:47 Parainfluenza 2 (PCR) Not Detected (NotDetected) 04/30/23 08:47 Parainfluenza 3 (PCR) Not Detected (NotDetected) 04/30/23 08:47 Parainfluenza 4 (PCR) Not Detected (NotDetected) 04/30/23 08:47 RSV (PCR) Not Detected (NotDetected) 04/30/23 08:47 Entero/Rhino (PCR) Not Detected (NotDetected) 04/30/23 08:47 Blood Type A Positive 04/28/23 22:21 Antibody Screen NEGATIVE 04/28/23 22:21 Crossmatch See Detail 04/28/23 22:21 Impressions Chest X-Ray 04/28/23 17:25 SINGLE VIEW CHEST CLINICAL HISTORY: Generalized weakness. FINDINGS: An AP, portable, upright chest radiograph is compared to study dated 04/25/2023. A right internal jugular central venous infusion port is unchanged in position. The patient is status post midline sternotomy. The heart is enlarged noting atherosclerotic calcification of the thoracic. There is pulmonary vascular congestion. Scarring/atelectasis is noted at the lung bases. No airspace consolidation or large pleural effusion is identified. No pneumothorax is seen. The bony thorax is grossly intact. Arthritic change is seen in the shoulders. IMPRESSION: Cardiomegaly with evidence of congestive failure. ACT 112: Negative or not required by law. Electronically signed by: Anastacio Sanabria M.D. 04/28/2023 6:[address] 04/28/23 17:25 CT SCAN OF THE BRAIN WITHOUT IV CONTRAST CLINICAL HISTORY: Change in mental status. COMPARISON STUDY: CT of the brain dated 04/25/2023. TECHNIQUE: Unenhanced axial CT scan of the brain is performed from the vertex to the skull base. A dose lowering technique was utilized adhering to the principles of ALARA. CT DOSE: 547.75 mGy.cm FINDINGS: Brain parenchyma: Foci of right frontal and parietal encephalomalacia are uncha nged and consistent with remote insults. There is age-related involutional change noting mild to moderate subcortical and periventricular microangiopathic disease. There is no hemorrhage, mass effect, or evidence of acute territorial ischemia by CT criteria. Cramer-white matter differentiation is preserved. No extra-axial fluid collection is seen. Ventricles, sulci, cisterns: Prominent secondary to involutional change. Intracranial vasculature: There is atherosclerotic calcification of the cavernous carotid and vertebral arteries. Calvarium: Unremarkable. Sinuses and mastoids: The visualized paranasal sinuses are clear. The mastoid air cells are well pneumatized. Orbits: The bony orbits are grossly intact. IMPRESSION: There is no hemorrhage, mass effect, or evidence of acute te rritorial ischemia by CT criteria. ACT 112: Negative or not required by law. Electronically signed by: Anastacio Sanabria M.D. 04/28/2023 5:55 PM 04/28/23 17:25 CT head/brain wo con Stat Discharge Instructions Given to Patient (Per Discharging Provider) PLEASE REFER TO YOUR NEW MEDICATION LIST AND FOLLOW INSTRUCTIONS CAREFULLY. YOUR NEW MEDICATIONS INCLUDE: Augmentin-antibiotic for possible urinary tract infection Please take a probiotic daily for at least 1 month. Renew[employer] brand recommended. Please ensure adequate daily fluid intake. PLEASE CALL YOUR PRIMARY CARE PHYSICIAN OR RETURN TO THE ER IF WITH WORSENING OF SYMPTOMS, INCLUDING Confusion, weakness, nausea vomiting, black or bloody stools, diarrhea etc. FOLLOW UP WITH PRIMARY CARE PHYSICIAN OUTLINED ABOVE. Total Time Total Time Spent Total Time Spent (In Minutes): >30 minutes
== END 2023-05-02 14:23 | disposition hospice, home (50) | DRG 689 ==
LOC: ED 15:42 → EDINP 21:35 → 2N 04-29 22:48